=== PATIENT | female | born 1970 | race Caucasian/White ===

== ENCOUNTER 2019-08-04 08:38 | Outpatient (CLI) | payer BC, SELFPAY ==
--- NOTE | ~2019-08-04 | MM_ITS ---
EXAMINATION: MM screening megan BI w randa HISTORY: Screening mammogram TECHNIQUE: Craniocaudal and mediolateral oblique 3-D tomosynthesis images were obtained and synthetic 2-D images were generated. CAD analysis was submitted and interpreted. COMPARISON: 07/25/2018 bilateral digital screening mammogram 07/01/2016 right screening and left diagnostic digital mammogram examinations 03/29/2015 bilateral diagnostic digital mammogram BREAST PARENCHYMAL COMPOSITION: The breasts are heterogeneously dense, which may obscure small masses . FINDINGS: There is no evidence of suspicious mass, calcification, or architectural distortion to sugg est malignancy in either breast. There has been no suspicious interval change. IMPRESSION: 1. No mammographic evidence of malignancy. 2. Recommend routine screening mammography in one year. BI-RADS Category 1: Negative Reviewed, dictated and finalized at location A.
== END 2019-08-04 08:39 | disposition home or self-care (01) ==
LOC: ANHIMG 08:42
PROVIDERS: PCP Family Medicine; Visit Provider Obstetrics & Gynecology
DX: Z12.31 Encounter for screening mammogram for malignant neoplasm of breast (principal)
CPT/HCPCS: 77063; 77067

== ENCOUNTER 2020-02-10 10:25 | Outpatient (CLI) | payer BC, SELFPAY ==
--- NOTE | 2020-02-10 10:28 | ECG_ITS ---
Measurements Intervals [place] Rate: 77 P: 45 ID: [id number] QRS: 12 QRSD: 106 T: 35 QT: 367 QTc: 417 Interpretive Statements SINUS RHYTHM DELAYED PRECORDIAL R/S TRANSITION BASELINE ARTIFACT- I, II, III, AVR, AVL, AVF, V1-V2 BORDERLINE ECG Electronically Signed On 02-10-2020 11:47:48 CDT by Thomas Dorsey D.O.
== END 2020-02-10 10:26 | disposition home or self-care (01) ==
PROVIDERS: PCP Family Medicine; Visit Provider Orthopaedic Surgery
DX: I10 Essential (primary) hypertension (principal); Z01.818 Encounter for other preprocedural examination; R94.31 Abnormal electrocardiogram [ECG] [EKG]
CPT/HCPCS: 93005

== ENCOUNTER 2020-02-13 02:59 | Outpatient (CLI) | payer BC, SELFPAY ==
[2020-02-13 18:02] LABS: SARS-CoV-2 RNA PCR Negative
== END 2020-02-13 03:00 | disposition home or self-care (01) ==
LOC: ANHCOVIDDT 03:00
PROVIDERS: PCP Family Medicine; Visit Provider Orthopaedic Surgery
DX: Z01.812 Encounter for preprocedural laboratory examination (principal); Z20.828 Contact with and (suspected) exposure to other viral communicable diseases
CPT/HCPCS: 87635; C9803; U0003

== ENCOUNTER 2020-02-16 02:11 | Day surgery (SDC) | payer BC, SELFPAY ==
[2020-02-05 15:23] VITALS: BMI 28.0
--- NOTE | 2020-02-13 15:37 | WPDANESEPPF ---
Anes - Initial Pre Proc Eval Procedure: Operation Date: 02/16/20 12:00 Proposed Procedures p Right Knee Diagnostic Arthroscopy, Possible Meniscal Repair, Proceed As Indicated - Salvador Serrato MD Date/Time: 02/13/20 15:37 Surgeon: Salvador Serrato MD Pre Op Diagnosis: right knee pain Patient Data Age: 49 Gender: F Height: 1.64 m Weight: 75.3 kg Allergies Allergy/AdvReac Type Severity Reaction Status Date / Time No Known Allergies Allergy Unknown Verified 02/16/20 10:03 Home Medications Medication Instructions Recorded Confirmed Type umeclidinium 62.5 mcg/actuation 1 inhalation INHALATION DAILY 03/18/19 02/16/20 History blister powder for inhalation fluticasone furoate 200 1 inhalation INHALATION QPM 04/17/19 02/16/20 History mcg-vilanterol 25 mcg/dose inhalation powder fluticasone propionate 50 1 spray NASAL DAILY #9.9 ml 11/12/19 02/16/20 Rx mcg/actuation nasal spray,suspension naproxen 500 mg tablet 500 mg PO BID #60 tablet 12/25/19 02/16/20 Rx atorvastatin 10 mg tablet 10 mg PO DAILY #90 tablet 01/05/20 02/16/20 Rx metoprolol succinate 25 mg 25 mg PO DAILY #90 tablet 01/05/20 02/16/20 Rx tablet,extended release 24 hr montelukast 10 mg tablet 10 mg PO DAILY #90 tablet 01/05/20 02/16/20 Rx lisinopril 5 mg tablet 5 mg PO DAILY #90 tablet 01/08/20 02/16/20 Rx calcium carbonate [Calcium 600] 600 mg PO DAILY 02/05/20 02/16/20 History cholecalciferol (vitamin D3) 50 mcg PO DAILY 02/05/20 02/16/20 History [Vitamin D3] omeprazole 40 mg PO DAILY PRN 02/05/20 02/16/20 History Patient hx anesthesia problems: none Family hx anesthesia problems: none PMFSH Past Medical History Medical History (Updated 02/13/20 @ 15:40 by Beny Shankar MD) Anemia Asthma exacerbation BMI 29.0-29.9,adult Chronic GERD Essential (primary) hypertension Hypertension Mild persistent asthma, uncomplicated Pure hypercholesterolemia, unspecified Surgical History Surgical History H/O: hysterectomy History of tonsillectomy Family History Family History Father Hypertension Family history of elevated blood lipids Social History Social History Smoking status: Never smoker Alcohol intake: current Drinks per week: 4 Gender identity (if verbalized by the patient): Female Spiritual care concerns: No Anes - Eval Final PreProcedure Day of Procedure 02/13/20 15:37 Patient weight: overweight Heart: regular rate and rhythm Lungs: clear to auscultation and normal air movement Airway: Mallampati scale class II Neurological: alert and oriented Last oral intake: >/= 8 hours ASA classification: II Emergent: no Anesthetic plan: proceed Anesthesia type and monitoring: general LMA Informed Consent: The patient's anesthetic plan and its attendant risks and benefits were discussed with the patient/family/POA. Questions were solicited and answers provided to the satisfaction of the patient/family/POA.
[2020-02-16] VITALS (7 sets, daily range): BP systolic 134–159; BP diastolic 73–92; PULSE 68–84; RESP 13–18; TEMP 36.4–36.7; O2SAT 99–100
[2020-02-16] MEDS: LACTATED RINGERS 1,000 ML 30 ML IV CONT ×2 (10:33→12:34)
[2020-02-16] MEDS: ACETAMINOPHEN 500 MG TABLET 1000 MG PO (10:35)
[2020-02-16] MEDS: KETOROLAC 15 MG/ML VIAL (*BKC) IV PUSH (10:35)
--- NOTE | 2020-02-16 11:02 | WPDHPUPDATE1 ---
History and Physical Update Update Date/Time: 02/16/20 11:02 History and Physical has been reviewed, including an updated exam of the patient. There are NO changes in the patient's condition. Risks, benefits, and alternatives have been discussed and questions answered. Patient agrees to proceed with procedure.
[2020-02-16] MEDS: ceFAZolin 2 GM/D5W 50 ML 2 GM/50 ML BAG IVPB (11:16)
--- NOTE | 2020-02-16 12:34 | PM.PROC ---
Procedure Note - Detailed Date of procedure: 02/16/20 Pre-op diagnosis: right knee pain Post-op diagnosis: same Procedure performed: Right knee arthroscopy partial synovectomy Description of procedure: The patient was identified and proper site identified. she was taken to the operating room and transferred to the OR table placing her supine taking care to pad the torso and extremities. After general anesthetic induction and intubation, a nonsterile tourniquet was placed high on the right thigh but was not inflated. The right lower extremity was positioned, prepped and draped in usual sterile fashion. 10 cc of 1% lidocaine was injected into the subcutaneous tissue in the area of the portals at start of the procedure, and an additional 10 at the end. The portals were established and the arthroscopy was carried out. hip articular cartilage in the anterior compartment showed fraying at the medial facet of the patella. Femoral trochlea was in pretty good shape. Lateral articular and meniscal cartilage was in good shape. There was a fissure in the medial femoral condyle at the weight-bearing portion but the cartilage was stable. Medial meniscus was stable. Anterior and posterior cruciate ligaments were in continuity. Pouch and gutters were clear. There was a very large fold of fat pad and synovium overlying the anterior horn of the medial meniscus which was atrophic and white consistent with chronic anterior impingement. This was debrided with the shaver and then ArthroCare Wand was used for hemostasis. The knee was flushed with a copious amount of arthroscopic fluid and equipment was removed. Portals were closed with three O nylon suture and a sterile dressing was applied. She tolerated the procedure well, was awakened, extubated and taken to recovery area in stable condition. There were no known intraoperative complications. Estimated blood loss was negligible. she received perioperative antibiotics. Anesthesia: GLMA Surgeon: Salvador Serrato MD Estimated blood loss (mL): 20 Drains: No Packing: No Pathology: none sent Complications: No immediate complications Condition: stable Disposition: PACU
--- NOTE | 2020-02-16 14:09 | SUR.PHASEII ---
DR. JOSEPH'S OFFICE CALLED RE: EXERCISES; OFFICE WILL CALL PT TOMORROW.
== END 2020-02-16 14:24 | disposition home or self-care (01) ==
PROVIDERS: PCP Family Medicine; Visit Provider Orthopaedic Surgery
PROC: (CPT 29870; principal; 2020-02-16 12:00)
DX: M65.861 Other synovitis and tenosynovitis, right lower leg (principal); M25.561 Pain in right knee; I10 Essential (primary) hypertension; D64.9 Anemia, unspecified; K21.9 Gastro-esophageal reflux disease without esophagitis; E78.00 Pure hypercholesterolemia, unspecified; J45.30 Mild persistent asthma, uncomplicated
CPT/HCPCS: 29875; A9270; J0690; J1100; J1885; J1940; J2250; J2405; J2704; J3010; J7120

== ENCOUNTER 2020-03-16 08:00 | Outpatient (RCR) | payer BC, SELFPAY ==
--- NOTE | 2020-02-26 10:06 | PTOPEVAL ---
INITIAL PHYSICAL THERAPY EVALUATION and PLAN OF CARE Thank you for referring Silvana Tineo to [facility].? Silvana is scheduled to be seen for physical therapy? 2x/week for 4 weeks. Please review, sign, date and return this plan of care JUNIOR. I agree with and certify that the following plan of care is medically necessary. Referring Physician Date Admitting Provider: Attending Provider: Salvador Serrato MD Referring Provider: *PT Outpatient Evaluation Start: 02/26/20 08:36 Freq: Status: Active Protocol: Document 02/26/20 08:30 JUANITA (Rec: 02/26/20 09:53 JUANITA [id number]) Therapy Assessment Status Assessment Status Assessment Status Evaluation Outpatient Past Medical History Past Medical History Source of Past Medical History Recalled from Previous Visit, Confirmed with Patient/Family Neurological History Hx Neurological Disorders No Significant History Cardiovascular History Hx Hypercholesterolemia Yes Hx Hypertension Yes Respiratory History Hx Asthma Yes Hx Pneumonia Yes: x2 2018 Gastrointestinal History Hx Gastroesophageal Reflux Disease Yes Genitourinary History Hx Genitourinary Disorders No Significant History Musculoskeletal History Hx Fractures Yes: FX FINGER L 5th Hx Orthopedic Surgery Yes: R knee arthroscopy 2019 Hx Other Musculoskeletal Disorders Yes: rt knee pain Hematological History Hx Hematological Disorders No Significant History Endocrine History Hx Endocrine Disorders No Significant History HEENT History Hx Tonsillectomy Yes Integumentary History Hx Skin Disorders No Significant History Reproductive History Hx Endometriosis Yes Hx Fibroids Yes Hx Hysterectomy Yes: October 2015 Psychosocial History Hx Psychiatric Disorders No Significant History Pain History History of Any Previous or Ongoing No Significant History Instance of Pain Anesthesia History Hx Anesthesia Reactions No Significant History Evaluation Information Problem Diagnosis R knee arthroscopy Onset 02/16/2020 Subjective Information Thanksgiving 2018 - twisting Query Text:As Reported By Patient/ injury to knee, stair climbing Family anterior pinching sensation - did have PT July 2019 Did received cortisone injection - felt better. Was seeing another Ortho MD. Went back to PCP - referred her to Dr Serrato - decided on diagnostic arthroscop
--- NOTE | 2020-03-16 09:00 | PTOPEVAL ---
PHYSICAL THERAPY DISCHARGE SUMMARY Thank you for referring Silvana Tineo to [facility].? Bety has completed 4 PT treatments and has met goals set. She is ready for d/c from PT to HEP. I agree with Bety's discharge from PT. Referring Physician Date Admitting Provider: Attending Provider: Salvador Serrato MD Referring Provider: *PT Outpatient Evaluation Start: 02/26/20 08:36 Freq: Status: Active Protocol: Document 03/16/20 08:10 JUANITA (Rec: 03/16/20 09:00 JUANITA [id number]) Therapy Assessment Status Assessment Status Assessment Status Discharge Evaluation Information Problem Subjective Information Bety states that her R knee is Query Text:As Reported By Patient/ feeling good - doesn't think Family that she needs any further PT. She has returned to walking the dog and taking walks with her . Bety still notices some occasional discomfort and swelling of R knee - but uses ice and does HEP. Pain Assessment Timing of Pain Assessment Timing of Pain Assessment Assessment Pain Scale Pain Scale Used Numeric (1 - 10) Self Report Pain Assessment Right Knee(s) Reported Pain Level 2 Lowest Pain Intensity 0 Greatest Pain Intensity 5 Pain Score Pain Score 2: Self Report Interventions Used Interventions Used By Clinicians Exercise,Ice Lower Extremity Range of Motion Knee Range of Motion Right Knee Flexion Range of Motion - Active 140 Knee Extension Range of Motion - Active 0 Query Text: Lower Extremity Muscle Strength Testing Hip Strength Bilateral Hip Strength Comments R hip - flexion, extension, ER , IR 5/5 abduction 4+/5 Extremity Circumference Assessment Circumference Assessment Location Right Body Part Knee Site Descriptor ([place]) mid patellar Circumference Comments R mid patellar 41.5 cm Gait Assessment Gait Pattern Assessment Other Gait Observations without gait deviation - symmetrical stance/swing phases, equal step length, symmetrical heel/toe progression. Stair Climbing Assessment Stair Climbing Assessment Stair Climbing Assistive Devices None Weight Bearing Status - Left Full Weight Bearing Status - Right Full Number of Steps Climbed (Steps) 4 Number of Repetitions (Repetitions) 1 Technique Alternating Steps Stair Climbing Direction Both Up and Down Stair Climbing
== END 2020-03-16 14:59 | disposition home or self-care (01) ==
LOC: ANHPT 08:00
PROVIDERS: PCP Family Medicine; Visit Provider Orthopaedic Surgery
DX: Z48.89 Encounter for other specified surgical aftercare (principal)
CPT/HCPCS: 97110; 97161

== ENCOUNTER 2020-08-19 10:53 | Outpatient (CLI) | payer BC, SELFPAY ==
--- NOTE | ~2020-08-19 | MM_ITS ---
EXAMINATION: MM screening megan BI w randa HISTORY: Screening TECHNIQUE: Craniocaudal and mediolateral oblique 3-D tomosynthesis images were obtained and synthetic 2-D images were generated. CAD analysis was submitted and interpreted. COMPARISON: Comparison to multiple prior studies sequentially, with oldest reviewed study dated 07/2014. BREAST PARENCHYMAL COMPOSITION: The breasts are heterogenously dense, which may obscure small masses. FINDINGS: There is a focal asymmetry in the subareolar location of the left breast, middle third on e xaggerated cc view only. The right breast is stable without evidence for malignancy. IMPRESSION: 1. Focal left breast asymmetry. 2. Additional mammographic views and possible breast ultrasound are recommended. BI-RADS Category 0: Incomplete: Needs additional imaging evaluation. Reviewed, dictated and finalized at location A. IMPRESSION: 1. Focal left breast asymmetry. 2. Additional mammographic views and possible breast ultrasound are recommended . BI-RADS Category 0: Incomplete: Needs additional imaging evaluation.
== END 2020-08-19 10:54 | disposition home or self-care (01) ==
PROVIDERS: PCP Family Medicine; Visit Provider Family Medicine
DX: Z12.31 Encounter for screening mammogram for malignant neoplasm of breast (principal); R92.8 Other abnormal and inconclusive findings on diagnostic imaging of breast
CPT/HCPCS: 77063; 77067

== ENCOUNTER 2020-09-14 11:54 | Outpatient (CLI) | payer BC, SELFPAY ==
--- NOTE | ~2020-09-14 | MMUS_ITS ---
EXAMINATION: MM diagnostic mammo unilat LT, US breast LT complete HISTORY: Follow-up left breast asymmetry TECHNIQUE: Additional 3-D tomosynthesis images of the left breast were performed and synthetic 2-D im ages were generated. CAD analysis was submitted and interpreted. High resolution complete left breast ultrasound was performed. COMPARISON: Comparison to multiple prior studies sequentially, with oldest reviewed study dated 03/16. BREAST PARENCHYMAL COMPOSITION: The breasts are heterogenously dense, which may obscure small masses. FINDINGS: MAMMOGRAPHIC FINDINGS: There are no suspicious masses, calcifications or architectural distortion in the left breast to sugg est malignancy. ULTRASOUND: Complete left breast ultrasound: Normal heterogeneous echotexture without focal solid or cystic mass. IMPRESSION: 1. No evidence for malignancy in the left breast. 2. Routine yearly screening mammogram and regular clinical breast examination are recommended. BI-RADS Category 1: Negative Reviewed, dictated and finalized at location A. IMPRESSION: 1. No evidence for malignancy in the left breast. 2. Routine yearly screening mammogram and regular clinical breast examination a re recommended. BI-RADS Category 1: Negative
== END 2020-09-14 11:55 | disposition home or self-care (01) ==
LOC: ANHIMG 11:55
PROVIDERS: PCP Family Medicine; Visit Provider Family Medicine
DX: R92.8 Other abnormal and inconclusive findings on diagnostic imaging of breast (principal)
CPT/HCPCS: 76641; 77061; 77065; G0279

== ENCOUNTER 2021-04-07 08:02 | Outpatient (CLI) | payer BC, SELFPAY ==
--- NOTE | 2021-04-07 16:46 | WPDPFTINT ---
PFT Procedure Performed PFT Procedure Performed Spirometry with Pre/Post Bronchodilator Plethysmography (Lung Vol) Diffusing Cap (DLCO) Flow Vol Loop PFT Interpretation This is a pulmonary function test with pre and post-bronchodilator spirometry, plethysmography and diffusing capacity. The test was performed and results interpreted in accordance with the 2019 and 2005 ATS/ERS Task Force guidelines respectively using the Global Lung Function Initiative-2012 reference equations. Patient demonstrated good effort and cooperation. Reproducibility criteria were met. The quality of the pre bronchodilator spirometry maneuver was Grade A and post bronchodilator spirometry maneuver was Grade A. Findings: Spirometry: The contour the inspiratory and expiratory flow tracing are normal. The pre bronchodilator FVC is 2.82 L, 81% predicted. The pre bronchodilator FEV1 is 2.44 L, 88% predicted. The FEV1: FVC ratio is 87%. The post bronchodilator FVC is 2.91 L, representing a 3% increase. The post bronchodilator FEV1 is 2.54 L, representing a 4% increase. The post bronchodilator FEV1: FVC ratio was 87%. Plethysmography: The total lung capacity is 4.22 L, 83% predicted. The functional residual capacity is 2.15 L, 76% predicted. The residual volume is 1.18 L, 66% predicted. Diffusing capacity: The absolute diffusion capacity is 15.5, 68% predicted. The diffusing capacity corrected for alveolar volume is 4.54, 99% predicted. In comparison to previous pulmonary function tests on 12/23/2018 the post bronchodilator FVC is unchanged from 3.04 L to 2.91 L. The post bronchodilator FEV1 is unchanged from 2.41 L to 2.54 L. The total lung capacity is unchanged from 4.07 L to 4.22 L. The functional residual capacity is unchanged from 1.96 L to 2.15 L. The residual volume is unchanged from 1.04 L to 1.18 L. The absolute diffusion capacity is unchanged from 17.8 to 15.5. The diffusing capacity corrected for alveolar volume has decreased from 5.85 to 4.54 Impression: The spirometry is normal without evidence of an obstructive abnormality. There is no significant improvement after inhaling a single dose of albuterol. The lung volumes are normal. The absolute diffusion capacity is mildly decreased and normalizes when corrected for alveolar volume. When compared to the prior pulmonary function test on 12/23/2018 there has been a greater than anticipated time dependent decrease in the diffusing capacity corrected for alveolar volume with no significant change in the FVC, FEV1, total lung capacity, functional residual capacity, residual volume or absolute diffusing capacity. Clinical correlation is recommended.
== END 2021-04-07 08:03 | disposition home or self-care (01) ==
PROVIDERS: PCP Family Medicine; Visit Provider Allergy & Immunology
DX: J45.51 Severe persistent asthma with (acute) exacerbation (principal); R94.2 Abnormal results of pulmonary function studies
CPT/HCPCS: 94060; 94726; 94729

== ENCOUNTER 2021-05-02 00:25 | Day surgery (SDC) | payer BC, SELFPAY ==
[2021-04-14 14:09] VITALS: BMI 28.8
[2021-05-02 10:16] VITALS: BP 136/82; PULSE 105; RESP 16; TEMP 36.6; O2SAT 99; BMI 28.5
--- NOTE | 2021-05-02 10:16 | WPDANESEPPF ---
Anes - Initial Pre Proc Eval Procedure: Operation Date: 05/02/21 11:30 Proposed Procedures p Screening Colonoscopy - Espinoza Singleton MD Date/Time: 05/02/21 10:16 Surgeon: Espinoza Singleton MD Pre Op Diagnosis: neoplasm screening Patient Data Age: 51 Gender: F Height: 1.63 m Weight: 76 kg Allergies Allergy/AdvReac Type Severity Reaction Status Date / Time No Known Allergies Allergy Unknown Verified 05/02/21 10:15 Home Medications Medication Instructions Recorded Confirmed Type calcium carbonate [Calcium 600] 600 mg PO DAILY 02/05/20 05/02/21 History cholecalciferol (vitamin D3) 50 mcg PO DAILY 02/05/20 05/02/21 History [Vitamin D3] fluticasone propionate 50 1 spray NASAL DAILY #9.9 ml 05/11/20 05/02/21 Rx mcg/actuation nasal spray,suspension fluticasone fur. 100 mcg-umeclid 1 inh INHALATION DAILY 06/24/20 05/02/21 History 62.5 mcg-vilant 25 mcg inhalat.powder montelukast 10 mg tablet 10 mg PO DAILY #90 tablet 02/07/21 05/02/21 Rx naproxen 500 mg tablet 500 mg PO BID PRN #60 tablet 03/01/21 05/02/21 Rx atorvastatin 40 mg tablet 40 mg PO DAILY #90 tablet 03/31/21 05/02/21 Rx acetaminophen 650 mg PO Q6H PRN 04/14/21 05/02/21 History lisinopril 5 mg PO DAILY 04/14/21 05/02/21 History metoprolol succinate 25 mg PO DAILY 04/14/21 05/02/21 History Patient hx anesthesia problems: none Family hx anesthesia problems: none Results Review: All pre-operative results and documents have been reviewed as part of the pre-operative evaluation. COUNTS INCLUDE 234 BEDS AT THE [facility] Past Medical History Medical History Anemia Asthma exacerbation BMI 29.0-29.9,adult Chronic GERD Essential (primary) hypertension Hypertension Mild persistent asthma, uncomplicated Pure hypercholesterolemia, unspecified Surgical History Surgical History H/O: hysterectomy History of arthroscopy of right knee partial synovectomy/anterior impingement History of tonsillectomy Family History Family History Father Hypertension Family history of elevated blood lipids Social History Social History Smoking status: Never smoker Alcohol intake: current Drinks per week: 4 Alcohol use details: occasional Living arrangements: with family Gender identity (if verbalized by the patient): Female Spiritual care concerns: No Anes - Eval Final PreProcedure Day of Procedure 05/02/21 10:16 Patient weight: overweight Heart: regular rate and rhythm Lungs: clear to auscultation Airway: Mallampati scale class II Neurological: alert and oriented Last oral intake: >/= 8 hours ASA classification: II Emergent: no Anesthetic plan: proceed Anesthesia type and monitoring: general GIVS and standard monitoring Results Review: All pre-operative results and documents have been reviewed as part of the pre-operative evaluation. Informed Consent: The patient's anesthetic plan and its attendant risks and benefits were discussed with the patient/family/POA. Questions were solicited and answers provided to the satisfaction of the patient/family/POA.
[2021-05-02] MEDS: LACTATED RINGERS 1,000 ML 150 ML IV CONT (10:20)
--- NOTE | 2021-05-02 10:29 | PM.HPGS ---
History of Present Illness History of Present Illness Consent: Risks, benefits, and alternatives have been discussed and questions answered. Patient agrees to proceed with procedure. Chief complaint: neoplasm screening Narrative: Silvana Tineo is a 51 year old female here for first screening colonoscopy Review of Systems Constitutional: Constitutional: Denies headache(s) and Denies weakness Eyes: Eyes: Denies blurry vision ENT: Reports Normal hearing present, Denies headache(s) and Denies neck pain Cardiovascular: Cardiovascular: Denies chest pain and Denies dyspnea Respiratory: Respiratory: Denies dyspnea Gastrointestinal: Gastrointestinal: Reports no additional gastrointestinal complaints Genitourinary: Genitourinary: Denies dysuria Musculoskeletal: Musculoskeletal: Denies neck pain Integumentary/Breasts: Skin/Breast: Denies dry skin Neurologic: Reports Normal hearing present, Denies headache(s) and Denies weakness Psychiatric: Psychiatric: Denies anxiety Endocrine: Endocrine: Denies change in body appearance Hematologic/Lymphatic: Hematologic/Lymphatic: Denies easy bleeding Allergic/Immunologic: Allergic/Immunologic: Denies urticaria PMFSH Past Medical History Medical History Anemia Asthma exacerbation BMI 29.0-29.9,adult Chronic GERD Essential (primary) hypertension Hypertension Mild persistent asthma, uncomplicated Pure hypercholesterolemia, unspecified Surgical History Surgical History H/O: hysterectomy History of arthroscopy of right knee partial synovectomy/anterior impingement History of tonsillectomy Family History Family History Father Hypertension Family history of elevated blood lipids Social History Social History Smoking status: Never smoker Alcohol intake: current Drinks per week: 4 Alcohol use details: occasional Living arrangements: with family Gender identity (if verbalized by the patient): Female Spiritual care concerns: No Meds Home Medications and Allergies Home Medications Medication Instructions Recorded Confirmed Type calcium carbonate [Calcium 600] 600 mg PO DAILY 02/05/20 05/02/21 History cholecalciferol (vitamin D3) 50 mcg PO DAILY 02/05/20 05/02/21 History [Vitamin D3] fluticasone propionate 50 1 spray NASAL DAILY #9.9 ml 05/11/20 05/02/21 Rx mcg/actuation nasal spray,suspension fluticasone fur. 100 mcg-umeclid 1 inh INHALATION DAILY 06/24/20 05/02/21 History 62.5 mcg-vilant 25 mcg inhalat.powder montelukast 10 mg tablet 10 mg PO DAILY #90 tablet 02/07/21 05/02/21 Rx naproxen 500 mg tablet 500 mg PO BID PRN #60 tablet 03/01/21 05/02/21 Rx atorvastatin 40 mg tablet 40 mg PO DAILY #90 tablet 03/31/21 05/02/21 Rx acetaminophen 650 mg PO Q6H PRN 04/14/21 05/02/21 History lisinopril 5 mg PO DAILY 04/14/21 05/02/21 History metoprolol succinate 25 mg PO DAILY 04/14/21 05/02/21 History Allergies Allergy/AdvReac Type Severity Reaction Status Date / Time No Known Allergies Allergy Unknown Verified 05/02/21 10:15 Vital Signs Vital Signs - 24 hr 05/02/21 10:16 Temperature 98 F Pulse Rate 105 H Respiratory Rate 16 Blood Pressure 136/82 Pulse Oximetry 99 Exam Const: General: comfortable and no acute distress HENMT: General nose exam: Normal nares present Eyes: General: appearance normal, both eyes and all related structures Neck: Neck: no JVD Resp: Auscultation: clear to auscultation bilaterally Cardio: Rate: regular rate Rhythm: regular rhythm GI: Inspection: non-distended GI Palp: Yes Soft to palpation Skin: General skin exam: normal color Neuro: General: gait normal Speech: normal speech Extrem: General: normal to inspection Psych: Mental Status: mental status grossl
[2021-05-02 10:47] VITALS: BP 98/56; PULSE 91; RESP 22; O2SAT 95
[2021-05-02 10:57] VITALS: BP 92/50; PULSE 72; RESP 22; O2SAT 100
[2021-05-02 11:07] VITALS: BP 115/71; PULSE 77; RESP 22; O2SAT 100
== END 2021-05-02 11:16 | disposition home or self-care (01) ==
PROVIDERS: PCP Family Medicine; Visit Provider Internal Medicine Gastroenterology
PROC: 0DJD8ZZ Inspection of Lower Intestinal Tract, Via Natural or Artificial Opening Endoscopic (ICD-10-PCS; CPT 45378; principal; 2021-05-02 11:30)
DX: Z12.11 Encounter for screening for malignant neoplasm of colon (principal); K63.5 Polyp of colon; K57.30 Diverticulosis of large intestine without perforation or abscess without bleeding; K64.8 Other hemorrhoids; K64.4 Residual hemorrhoidal skin tags; D64.9 Anemia, unspecified; J45.909 Unspecified asthma, uncomplicated; K21.9 Gastro-esophageal reflux disease without esophagitis; I10 Essential (primary) hypertension; J45.30 Mild persistent asthma, uncomplicated; E78.00 Pure hypercholesterolemia, unspecified
CPT/HCPCS: 45385; 88305; J2001; J2704; J7120

== ENCOUNTER 2021-06-16 08:42 | Outpatient (CLI) | payer BC, SELFPAY ==
--- NOTE | ~2021-06-16 | US_ITS ---
EXAMINATION: US venous doppler LE RT DATE: 06/16/2021 09:07 INDICATION: Right lower limb pain. TECHNIQUE: Grayscale ultrasound images without and with compression and Doppler ultrasound images of the right lower extremity veins were obtained. COMPARISON: None. FINDINGS: The visualized portions of right common femoral vein, profunda (deep) femoral vein, femoral vein, pop liteal vein, peroneal veins, posterior tibial veins, and greater saphenous vein outflow are patent. IMPRESSION: 1. No deep venous thrombosis. Reviewed, dictated and finalized at location A. [facility]
[2021-06-16 09:20] LABS: Basophils Absolute Auto 0.1 K/mm3 (0.0-0.1); Basophils Percent Auto 0.7 % (0.2-1.2); Eosinophils Absolute Auto 0.1 K/mm3 (0-0.3); Eosinophils Percent Auto 1.1 % (0-4.4); Hematocrit 41.4 % (37.0-47.0); Hemoglobin 13.1 g/dL (12.0-15.0); Immature Granulocyte Absolute 0.03 K/mm3 (0.00-0.031); Immature Granulocyte Percent A 0.4 % (0-0.5); Lymphocytes Percent Auto 22.7 % (18.3-44.2); Mean Corpuscular HGB Conc 31.6 g/dl (32-36); Mean Corpuscular Hemoglobin 30.8 pg (26-34); Mean Corpuscular Volume 97.4 fl (80-100); Mean Platelet Volume 9.6 fl (7.4-10.4); Monocytes Absolute Auto 0.4 K/mm3 (0.1-0.6); Neutrophils Absolute Auto 4.9 K/mm3 (1.3-6.7); Neutrophils Percent Auto 70.1 % (45.5-73.1); Platelet Count Result 333 k/mm3 (150-375); Red Blood Count 4.25 M/mm3 (4.2-5.4); Red Cell Distribution Width 13.4 % (11.5-14.5); White Blood Count 7.1 K/mm3 (4.5-10.0)
[2021-06-16 09:42] LABS: CRP < 0.5 mg/dL (<1.0); Uric Acid 3.1 mg/dL (2.5-7.5)
[2021-06-16 09:44] LABS: Rheumatoid Factor < 8.6 IU/ML (<12)
[2021-06-16 10:41] LABS: Erythrocyte Sedimentation Rate 20 mm/hr (0-20)
== END 2021-06-16 08:43 | disposition home or self-care (01) ==
LOC: ANHIMG 08:46
PROVIDERS: PCP Family Medicine; Visit Provider Orthopaedic Surgery
DX: M17.0 Bilateral primary osteoarthritis of knee (principal); M79.661 Pain in right lower leg
CPT/HCPCS: 36415; 84550; 85025; 85652; 86038; 86140; 86430; 93971

== ENCOUNTER → 2021-08-01 09:46 | Outpatient (CLI) | payer BC, SELFPAY ==
--- NOTE | ~2021-08-01 | MR_ITS ---
EXAMINATION: MR knee RT wo con DATE: 08/01/2021 10:17 INDICATION: Right knee pain TECHNIQUE: Magnetic resonance imaging (MRI) of the right knee was performed without intravenous contr ast. Sequences included coronal PD-weighted FSE, coronal PD-weighted FS FSE, sagittal T2-weighted FS E, sagittal PD-weighted FS FSE and axial PD weighted fat saturated FSE. COMPARISON: None. FINDINGS: Medial compartment: Medial meniscus is normal. Full/near full-thickness chondral fissure extending along the anterior dahiana ghtbearing medial femoral condyle. Lateral compartment: Lateral meniscus is normal. Articular cartilage is normal. Patellofemoral compartment: Small region of deep chondral ulceration with likely full-thickness fissuring and underlying mild sub articular cystic change at the cephalad aspect of the patellar apical ridge and supralateral aspect o f the medial facet. Trochlear cartilage is normal. Ligaments and tendons: Anterior and posterior cruciate ligaments are normal. The medial collateral ligament and fibular dione ateral ligament complex are normal. The extensor mechanism is normal. The visualized medial and later al hamstring tendons as well as the iliotibial band are normal. Fluid: Physiologic amount of fluid in the joint space. No loose osteochondral bodies identified. Osseous/other: Normal marrow signal. No fracture or abnormal marrow replacing process. IMPRESSION: 1. Deep chondral fissuring at the patella and anterior weightbearing medial femoral condyle. Reviewed, dictated and finalized at location A. IMPRESSION: 1. Deep chondral fissuring at the patella and anterior weightbearing medial fem oral condyle.
== END ==
PROVIDERS: PCP Family Medicine; Visit Provider Orthopaedic Surgery
DX: M25.561 Pain in right knee (principal); G89.29 Other chronic pain; R93.7 Abnormal findings on diagnostic imaging of other parts of musculoskeletal system
CPT/HCPCS: 73721

== ENCOUNTER 2021-08-07 18:21 | Emergency (ER) | payer BC, SELFPAY ==
--- NOTE | ~2021-08-07 | XR_ITS ---
EXAMINATION: XR hand LT min 3V INDICATION: Left hand pain TECHNIQUE: Three views of the left hand are obtained. COMPARISON: 09/10/2014 FINDINGS: Bone alignment is normal. There is no fracture. The joint spaces are unremarkable. There is a mild soft soft tissue defect of the fourth finger. IMPRESSION: 1. No acute osseous abnormality. Reviewed, dictated and finalized at location F.
[2021-08-07 18:27] VITALS: BP 135/83; PULSE 84; RESP 16; TEMP 36.8; O2SAT 100
--- NOTE | 2021-08-07 18:53 | ED.GENADULT ---
HPI - General Adult General Chief complaint: Extremity Injury, Upper Stated complaint: FALL/L HAND INJURY Source: patient Mode of arrival: ambulatory Limitations: no limitations History of Present Illness HPI narrative: Patient presents for evaluation of pain in the bilateral hands and knees since last night. She indicates she was walking on the street when she tripped and landed with her hands outstretched. She landed on her knees. She did not hit her head nor have loss of consciousness. She reports abrasions to bilateral knees and left hand. She states that pain in bilateral knees and right hand is 2 out of 10 in severity, without descriptive quality. Pain in left hand is 4/10 in severity at rest but increases to 6/10 with movement. She has been taking tylenol arthritis and celebrex with some improvement in her symptoms. Her friend is a nurse and assisted her in washing to her abrasions. She also applied antibiotic ointment. She has arthritis in her knees and received a steroid injection on her right knee last per ortho. She is right hand dominant. She is not diabetic. Last tetanus was in 2011. No additional complaints or concerns. Related Data Home Medications Medication Instructions Recorded Confirmed calcium carbonate [Calcium 600] 600 mg PO DAILY 02/05/20 08/07/21 cholecalciferol (vitamin D3) 50 mcg PO DAILY 02/05/20 08/07/21 [Vitamin D3] fluticasone fur. 100 mcg-umeclid 1 inh INHALATION DAILY 06/24/20 08/07/21 62.5 mcg-vilant 25 mcg inhalat.powder acetaminophen 650 mg PO Q6H PRN 04/14/21 08/07/21 Allergies Allergy/AdvReac Type Severity Reaction Status Date / Time No Known Allergies Allergy Unknown Verified 08/07/21 18:26 Review of Systems Review of Systems: CONSTITUTIONAL: Denies fever, chills, or sweats. EYES: Denies visual changes, redness, or discharge. ENT: Denies rhinorrhea, congestion, sore throat, or otalgia. CARDIOVASCULAR: Denies chest pain, palpitations, or edema. RESPIRATORY: Denies cough or dyspnea. GASTROINTESTINAL: Denies abdominal pain, nausea, vomiting, or diarrhea. GENITOURINARY: Denies dysuria or hematuria. SKIN: Reports abrasions to bilateral knees and bilateral hands. Denies rash or itching. MUSCULOSKELETAL: Reports pain in bilateral hands and knees NEUROLOGIC: Denies headache, numbness, dizziness, or weakness. PSYCHIATRIC: Denies anxiety or depression. [facility] Past Medical History Medical History Anemia Asthma exacerbation BMI 29.0-29.9,adult Chronic GERD Essential (primary) hypertension Hypertension Mild persistent asthma, uncomplicated Pure hypercholesterolemia, unspecified Right knee pain Surgical History Surgical History H/O: hysterectomy History of arthroscopy of right knee partial synovectomy/anterior impingement February 2020 History of tonsillectomy Family History Family History Father Hypertension Family history of elevated blood lipids Social History Social History Alcohol intake: current Drinks per week: 4 Alcohol use details: occasional Gender identity (if verbalized by the patient): Female Spiritual care concerns: No Exam Narrative: GENERAL: Well-appearing, well-nourished, and in no acute distress. HEAD: Normocephalic, atraumatic. EYES: PERRLA and EOMI. ENT: Nares clear, no rhinorrhea or epistaxis. Mucous membranes moist. Oropharynx without tonsillar hypertrophy exudate or other lesions. Bilateral TMs pearly josé nonbulging NECK: Supple. No adenopathy or masses. No carotid bruits or JVD CHEST: Clear to auscultation. No respiratory distress. No wheezes rales or rhonchi HEART: Regular rate and rhythm. No murmur heard. Normal peripheral pulses. ABDOMEN: Soft, nontender, nondistended,
[2021-08-07] MEDS: TETANUS,DIPHTHERIA,AC PERTUSSIS ADULT (0.5 ML) BOOSTRIX IM (18:54)
== END 2021-08-07 19:14 | disposition home or self-care (01) ==
PROVIDERS: Emergency Provider Nurse Practitioner; PCP Family Medicine
DX: S60.222A Contusion of left hand, initial encounter (principal); S60.221A Contusion of right hand, initial encounter; S80.02XA Contusion of left knee, initial encounter; S80.01XA Contusion of right knee, initial encounter; Z23 Encounter for immunization; K21.9 Gastro-esophageal reflux disease without esophagitis; I10 Essential (primary) hypertension; J45.30 Mild persistent asthma, uncomplicated; E78.00 Pure hypercholesterolemia, unspecified; Z86.2 Personal history of diseases of the blood and blood-forming organs and certain disorders involving the immune mechanism; W01.0XXA Fall on same level from slipping, tripping and stumbling without subsequent striking against object, initial encounter
CPT/HCPCS: 73130; 90471; 90715; 99213; G0463

== ENCOUNTER 2021-11-04 07:58 | Outpatient (CLI) | payer BC, SELFPAY ==
--- NOTE | ~2021-11-04 | MM_ITS ---
EXAMINATION: MM screening megan BI w randa HISTORY: Screening TECHNIQUE: Craniocaudal and mediolateral oblique 3-D tomosynthesis images were obtained and synthetic 2-D images were generated. CAD analysis was submitted and interpreted. COMPARISON: Comparison to multiple prior studies sequentially, with oldest reviewed study dated 09/30. BREAST PARENCHYMAL COMPOSITION: The breasts are heterogeneously dense, which may obscure small masses . FINDINGS: There is no evidence of suspicious mass, calcification, or architectural distortion to sugg est malignancy in either breast. There has been no suspicious interval change. IMPRESSION: 1. No mammographic evidence of malignancy. 2. Recommend routine screening mammography in one year. BI-RADS Category 1: Negative Reviewed, dictated and finalized at location A.
== END 2021-11-04 07:59 | disposition home or self-care (01) ==
LOC: ANHIMG 08:01
PROVIDERS: PCP Family Medicine; Visit Provider Family Medicine
DX: Z12.31 Encounter for screening mammogram for malignant neoplasm of breast (principal)
CPT/HCPCS: 77063; 77067

== ENCOUNTER 2021-11-25 07:55 | Outpatient (CLI) | payer BC, SELFPAY ==
--- NOTE | 2021-11-25 08:11 | ECG_ITS ---
Measurements Intervals [place] Rate: 79 P: 44 WA: 158 QRS: 15 QRSD: 112 T: 38 QT: 382 QTc: 440 Interpretive Statements SINUS RHYTHM INCOMPLETE RIGHT BUNDLE BRANCH BLOCK [90+ ms QRS DURATION, TERMINAL R IN V1/V2, 40+ ms S IN I/aVL/V4/V5/V6] BORDERLINE ECG COMPARED TO ECG 02/10/2020 11:03:42 NO DIFFERENCE Electronically Signed On 11-25-2021 10:24:02 CDT by Akash Randall M.D.
== END 2021-11-25 07:56 | disposition home or self-care (01) ==
LOC: ANHSURGERY 08:04
PROVIDERS: PCP Family Medicine; Visit Provider Orthopaedic Surgery
DX: E78.00 Pure hypercholesterolemia, unspecified (principal); Z01.818 Encounter for other preprocedural examination; I45.10 Unspecified right bundle-branch block
CPT/HCPCS: 93005

== ENCOUNTER 2021-11-29 01:01 | Day surgery (SDC) | payer BC, SELFPAY ==
[2021-11-24 14:52] VITALS: BMI 29.5
--- NOTE | 2021-11-24 14:58 | PC.NURSE ---
Report to the Outpatient Waiting Room, entrance under the green pavilion located off [facility], at time _0900_ on date 11/29/21_. OR Time: __1100 . - You and your visitor will be asked to self-screen and do not enter if you have any COVID symptoms. - Only one visitor and NO children visitors are allowed at this time. - The patient visitor is requested to leave or wait in car when not with patient due to restrictions. - A mask is required within the hospital. Patients may have clear liquids (water, carbonated beverages, clear teas, apple juice) until 3 hours prior to surgery with a maximum of 20 ounces. - No food from midnight until time of surgery - Infants may have breast milk until 4 hours before surgery, infant formula 6 hours prior to surgery. - Children will be allowed to drink immediately following surgery. If applicable, please bring a bottle or sippy cup to assist with drinking. Juice, water, soda, and popsicles are readily available. For infants on formula, please bring formula the day of surgery. Pacifiers are allowed. Take the following medications with a SIP of water the morning of surgery: ____METOPROLOL, NASAL SPRAY, INHALER Medications to discontinue per physician VITAMINS Date to take last dose 11/26/21 Please no make-up, nail norwegian, hairspray, perfume, deodorant, or body powder the day of surgery. No jewelry (including any body piercings) or valuables the day of surgery, leave them at home. Please take a shower or bath the night before, or the morning of, surgery with an antibacterial soap. Wear comfortable, loose fitting clothing. Children are encouraged to wear pajamas. - Jewelry must be removed prior to entering the operating room. Rings and piercings that are not removed may be cut off. - The hospital will not accept responsibility for valuables. - Please leave all valuables, including medications, at home the day of surgery. If you are going home after surgery, a licensed shuttle van driver must drive you home. - NO public transportation without another adult. - We recommend that an adult stay with you for 24 hours following discharge. - We also recommend that you do not drive, make important decision, drink alcoholic beverages, or take any drugs that were not prescribed by your health care provider for at least 24 hours after your discharge time. For Pediatric surgeries, we recommend two adults accompany the child home (only one inside the building at this time). Follow any additional instructions given to you from your surgeon. If you or anyone in your household have experienced Covid symptoms in the past week, please notify your surgeon or the nurse liaison at the phone number below for possible testing. Telephone instructions given to _PATIENT___and asked if any additional questions and then verbalized understanding. Patient advised to call surgeon office or pre surgery nurse liaison [phone] if any additional questions.
--- NOTE | 2021-11-24 15:08 | SUR.PREOP ---
PT STATES SHE HAS CRUTCHES AND IS AWARE OF HOW TO USE THEM
[2021-11-29] VITALS (8 sets, daily range): BP systolic 122–149; BP diastolic 61–86; PULSE 60–87; RESP 12–16; TEMP 36.2–36.9; O2SAT 97–100
--- NOTE | 2021-11-29 07:13 | WPDANESEPPF ---
Anes - Initial Pre Proc Eval Procedure: Operation Date: 11/29/21 11:00 Proposed Procedures p Diagnostic Right Knee Arthroscopy, Proceed as Indicated - Salvador Serrato MD Date/Time: 11/29/21 07:13 Surgeon: Salvador Serrato MD Pre Op Diagnosis: Right Knee Pain Patient Data Age: 51 Gender: F Height: 1.63 m Weight: 78 kg Allergies Allergy/AdvReac Type Severity Reaction Status Date / Time No Known Allergies Allergy Unknown Verified 11/29/21 09:22 Home Medications Medication Instructions Recorded Confirmed Type calcium carbonate 600 mg calcium 600 mg PO DAILY 02/05/20 11/29/21 History (1,500 mg) tablet (Calcium) cholecalciferol (vitamin D3) 50 50 mcg PO DAILY 02/05/20 11/29/21 History mcg (2,000 unit) capsule (Vitamin D3) fluticasone fur. 100 mcg-umeclid 1 inh inhalation DAILY 06/24/20 11/29/21 History 62.5 mcg-vilant 25 mcg inhalat.powder (Trelegy Ellipta) acetaminophen 650 mg tablet 650 mg PO Q6H PRN Pain 04/14/21 11/29/21 History metoprolol succinate 25 mg See Rx Instructions .Route 06/02/21 11/29/21 Rx tablet,extended release 24 hr .COMPLEX #90 tabs lisinopril 5 mg tablet See Rx Instructions .Route 06/28/21 11/29/21 Rx .COMPLEX #90 tabs montelukast 10 mg tablet 10 mg PO DAILY #90 tabs 08/04/21 11/29/21 Rx (Singulair) fluticasone propionate 50 See Rx Instructions .Route 08/15/21 11/29/21 Rx mcg/actuation nasal .COMPLEX #16 grams spray,suspension atorvastatin 40 mg tablet 40 mg PO DAILY #90 tabs 09/21/21 11/29/21 Rx Patient hx anesthesia problems: none Family hx anesthesia problems: none Results Review: All pre-operative results and documents have been reviewed as part of the pre-operative evaluation. [facility] Past Medical History Medical History (Updated 11/10/21 @ 08:21 by Salvador Serrato MD) Anemia Asthma exacerbation BMI 29.0-29.9,adult Chronic GERD Essential (primary) hypertension History of COVID-04 June 2021 Hypertension Mild persistent asthma, uncomplicated Pure hypercholesterolemia, unspecified Right knee pain Surgical History Surgical History H/O: hysterectomy History of arthroscopy of right knee partial synovectomy/anterior impingement February 2020 History of tonsillectomy Family History Family History Father Hypertension Family history of elevated blood lipids Social History Social History (Updated 11/21/21 @ 15:[address] [facility]) Smoking status: Unknown if ever smoked Alcohol intake: current Drinks per week: 4 Alcohol use details: occasional Living arrangements: with family Gender identity (if verbalized by the patient): Female Spiritual care concerns: No Anes - Eval Final PreProcedure Day of Procedure 11/29/21 07:13 Patient weight: overweight Heart: regular rate and rhythm Lungs: clear to auscultation Airway: Mallampati scale class II Neurological: alert and oriented Last oral intake: >/= 8 hours ASA classification: II Emergent: no Anesthetic plan: proceed Anesthesia type and monitoring: general LMA and standard monitoring Results Review: All pre-operative results and documents have been reviewed as part of the pre-operative evaluation. Informed Consent: The patient's anesthetic plan and its attendant risks and benefits were discussed with the patient/family/POA. Questions were solicited and answers provided to the satisfaction of the patient/family/POA.
[2021-11-29] MEDS: ACETAMINOPHEN 500 MG TABLET 1000 MG PO (09:33)
[2021-11-29] MEDS: LACTATED RINGERS 1,000 ML 30 ML IV CONT ×2 (09:42→11:46)
[2021-11-29] MEDS: KETOROLAC 15 MG/ML VIAL (*BKC) IV PUSH (09:45)
--- NOTE | 2021-11-29 10:10 | WPDHPUPDATE1 ---
History and Physical Update Update Date/Time: 11/29/21 10:10 History and Physical has been reviewed, including an updated exam of the patient. There are NO changes in the patient's condition. Risks, benefits, and alternatives have been discussed and questions answered. Patient agrees to proceed with procedure.
[2021-11-29] MEDS: ceFAZolin 2 GM/D5W 50 ML 2 GM/50 ML BAG IVPB (10:36)
[2021-11-29] MEDS: LIDOCAINE HCL 1% PF INJ 5 ML VIAL 20 ML INFILTRATE (11:02)
[2021-11-29] MEDS: fentaNYL CITRATE INJ (*CRX) 100 MCG/2 ML VIAL 25 MCG IV PUSH ×2 (11:55→12:03)
--- NOTE | 2021-11-29 11:57 | W.PM.PROC2 ---
Procedure Note - Detailed Date of Procedure 11/29/21 Pre-op Diagnosis Right Knee Pain Post-op Diagnosis Same Procedure Performed Right knee arthroscopy with extensive synovectomy. Abrasion arthroplasty with microfracture medial femoral condyle. Surgeon Salvador Serrato MD Anesthesia General Description of Procedure The patient was identified and proper site identified and she was taken to the operating room, transferred to the OR table placing her supine taking care to pad the torso and extremities. After general anesthetic induction and intubation, a nonsterile tourniquet was placed high on the right thigh but was not inflated The right lower extremity was positioned, prepped and draped in usual sterile fashion. 10 cc of 1% lidocaine was injected into the subcutaneous tissue in the area of the portals at start of the procedure, and an additional 10 at the end. The portals were established and the arthroscopy was carried out. Lateral compartment articular meniscal cartilage was in excellent shape. Lateral gutter was clear. And and posterior cruciate ligaments were in continuity. Pouch was clear. Medially in the gutter there was tight striations of scar tissue that were rubbing over the medial femoral condyle. There is an it associated area of erythematous synovium and periosteum at the medial margin of the articular surface. There was an imbedded bone fragment in the scar tissue overlying and just anterior to the anterior horn of the medial meniscus. There is a large chondral fissure that had loose flaps noted the weight-bearing portion of medial femoral condyle. The scarred synovium was extensively debrided combination of shaver and ArthroCare Wand. Arthrocare Wand was used for hemostasis. The small bone fragment was removed the synovium in the scar tissue resected anteriorly as well. This gave much more mobility to the meniscus as the knee was taken range of motion. The fissuring of the medial femoral condyle was addressed with chondral debridement and then the exposed bone surface which measured approximately 1/2 x 1 centimeter was gently abraded with the shaver and then a May pick was used to create a single microfracture hole centrally and this. The knee was flushed with a copious amount of arthroscopic fluid and equipment was removed. Portals were closed with three O nylon suture and a sterile dressing was applied. She tolerated the procedure well, was awakened, extubated and taken to recovery area in stable condition. There were no known intraoperative complications. Estimated blood loss was negligible; she received perioperative antibiotics. Estimated Blood Loss -20.0 Tourniquet Time 0 Drains No Packing No Pathology None sent Complications No immediate complications Condition Stable Disposition PACU
[2021-11-29] MEDS: oxyCODONE HCL (*CRX) 5 MG TAB IR PO (12:38)
== END 2021-11-29 13:30 | disposition home or self-care (01) ==
PROVIDERS: PCP Family Medicine; Visit Provider Orthopaedic Surgery
PROC: (CPT 29870; principal; 2021-11-29 11:00)
DX: M65.861 Other synovitis and tenosynovitis, right lower leg (principal); M25.861 Other specified joint disorders, right knee; D64.9 Anemia, unspecified; J45.909 Unspecified asthma, uncomplicated; K21.9 Gastro-esophageal reflux disease without esophagitis; I10 Essential (primary) hypertension; Z86.16 Personal history of COVID-19; E78.00 Pure hypercholesterolemia, unspecified; G89.29 Other chronic pain
CPT/HCPCS: 29879; 93005; A9270; J0690; J1885; J2250; J2405; J2704; J3010; J7120

== ENCOUNTER 2022-02-23 08:00 | Outpatient (RCR) | payer BC, SELFPAY ==
--- NOTE | 2021-12-01 15:08 | PTOPEVAL ---
PHYSICAL THERAPY INITIAL EVALUATION. Thank you for referring Silvana Tineo to [facility].? The patient is scheduled to be seen for therapy? 1x/week for 4 weeks. Please review, sign, date and return this plan of care JUNIOR. I agree with and certify that the following plan of care is medically necessary. Referring Physician Date Attending Provider: Salvador Serrato MD *PT Outpatient Evaluation Start: 12/01/21 Evaluation Information Diagnosis R knee scope Onset 11/29/21 Subjective Information Pt states she had a knee scope Query Text:As Reported By Patient/ done on 11/29/21. She states Family her pain is well controlled. She ambulates into the clinic today with bradley axillary crutches. Pain Assessment Right Knee(s) Reported Pain Level 0 Pain Description Aching,Sharp,Spasms Pain Frequency Acute,Intermittent Lowest Pain Intensity 0 Greatest Pain Intensity 6 Lower Extremity Range of Motion Knee Range of Motion Right Knee Flexion Range of Motion - Active 95 Knee Extension Range of Motion - Active -8 Knee Range of Motion Comments L knee active ROM 0-134 Lower Extremity Muscle Strength Testing Gross Lower Extremity Strength R knee lacking 25 deg from terminal knee extension in short sitting Palpation Assessment Palpation incisions are clean, dry, and covered with bandages Gait Assessment Ambulation Assistive Devices Crutches Gait Pattern Antalgic Gait Other Gait Observations pt ambulates with bradley axillary crutches. Gait training with single axillary crutch held in LUE to improve mobility around home. Pt educated that if she has any discomfort with single crutch ambulation to return to bradley crutch ambulation Stair Climbing Assessment Stair Climbing Assistive Devices Crutches,Railings Technique Side Step Stair Climbing Direction Both Up and Down Stair Climbing Comments Step to pattern ascending with LLE leading and descending with RLE leading Safety Assessment Factors Affecting Safety Surgical Interventions,Weight Bearing Restrictions PT Clinical Summary Silvana Albert is an active 51 y /o female who presents to therapy today s/p knee scope
--- NOTE | 2021-12-08 08:40 | PCPTNOTE ---
Patient called & cancelled scheduled appointment this date due to being sick with a fever.
--- NOTE | 2022-01-17 16:14 | PTOPPROG ---
Assessment and note entered by Trevor Newell, PT, DPT Evaluation Information Assessment Status Progress Diagnosis R knee scope Subjective Information Pt was supposed to have a follow up with her orthopedic doctor today to review her protocol and her weight bearing status but this appointment needed to be rescheduled. She states her pain is well controlled and she has been compliant with her restrictions. Assessment PT Clinical Summary Silvana presents to therapy today for her progress report after participation in a home exercise program. Today she continues to ambulate with bradley axillary crutches. She has improved her R knee ROM to 136 deg, she is still lacking 5 deg of terminal knee extension. She has a good and strong quad set but is still lacking ~20 deg of terminal knee extension in short sitting. Continuation of skilled physical therapy services is indicated once weight bearing restrictions have been lifted. Plan of Care Interventions Electrical Stimulation,Gait Training,Hot Pack/Cold Pack,Manual Therapy,Neuro Re-education,Patient/ Caregiver Educati,Therapeutic Activities, Therapeutic Exercise PT Services Indicated Yes Treatment Frequency and 2x/wk for 6 wks, in 2 wks after ortho follow up Duration These treatments will address the objective and functional deficits as defined above. The patient will be advanced safely and appropriately in order for the patient to progress towards his/her prior level of function. Additional exercises will be introduced and as well as a comprehensive home exercise program upon discharge, if needed, ?to ensure carryover of functional gains achieved in the clinic. This treatment plan has been reviewed and agreement upon by the patient.
--- NOTE | 2022-02-24 17:35 | BUPTOPEVAL1 ---
Assessment and note entered by Rox Silva, PT Evaluation Information Assessment Status Progress Diagnosis R knee scope Subjective Information Reports she is walking 3/4 a mile a day with her dogs, has some mild increased pain with this but not much. Reported Pain Level Pain Score 3: Self Report Additional Pain Score Comments Takes Tylenol arthritis daily, sometimes 2-3x daily depending on her activity level Is icing as needed. Assessment PT Clinical Summary Pt has made significant improvements in her range, functional strength and gait since initiation of therapy. She cont to have pain especially with walking her dog and on unlevel surfaces. Palpation shows significant diffuse adhesions to the soft tissue surrounding the knee especially in the posterior knee and thigh. Today patient was educated on findings, and treatment related to chronic inflammatory presentation. Initiated [place] IASTM and deep tissue work to break up adhesions and improve tissue extensibility and thus aid in improving muscle activation patterns and reduce pain. Pt will benefit from continued therapy in order to focus on this aspect of recovery and improve her fucntion without pain Plan of Care Interventions Electrical Stimulation,Gait Training,Hot Pack/Cold Pack,Manual Therapy,Neuro Re-education, Therapeutic Activities,Therapeutic Exercise PT Services Indicated Yes Treatment Frequency and 1x/wk for 6 wks Duration These treatments will address the objective and functional deficits as defined above. The patient will be advanced safely and appropriately in order for the patient to progress towards his/her prior level of function. Additional exercises will be introduced and as well as a comprehensive home exercise program upon discharge, if needed, ?to ensure carryover of functional gains achieved in the clinic. This treatment plan has been reviewed and agreement upon by the patient.
== END 2022-03-01 23:59 | disposition home or self-care (01) ==
LOC: ANHPT 08:00
PROVIDERS: PCP Family Medicine; Visit Provider Orthopaedic Surgery
DX: Z48.89 Encounter for other specified surgical aftercare (principal); Z98.890 Other specified postprocedural states
CPT/HCPCS: 97014; 97035; 97110; 97112; 97140; 97161; 97530; G0283

== ENCOUNTER 2022-03-12 08:10 | Emergency (ER) | payer BC, SELFPAY ==
--- NOTE | 2022-03-12 08:16 | ED.FEMALEGU ---
HPI - Female Genitourinary General Chief complaint: Urogenital-Female Stated complaint: possible UTI Time Seen by Provider: 03/12/22 08:11 Source: patient Mode of arrival: ambulatory Limitations: no limitations History of Present Illness HPI Narrative: Silvana is a 52-year-old female patient presenting to the clinic today with complaints of possible urinary tract infection x1 day. She reports she started symptoms yesterday with burning/urgency/frequency/low urine output. No fever or chills. Does have some bladder spasms. She states she has never had a urinary tract infection before. Related Data Home Medications Medication Instructions Recorded Confirmed fluticasone fur. 100 mcg-umeclid 1 inh inhalation DAILY 06/24/20 03/12/22 62.5 mcg-vilant 25 mcg inhalat.powder (Trelegy Ellipta) acetaminophen 650 mg 650 mg PO Q12H 12/14/21 03/12/22 tablet,extended release (Tylenol Arthritis Pain) Allergies Allergy/AdvReac Type Severity Reaction Status Date / Time No Known Allergies Allergy Unknown Verified 03/08/22 08:06 Review of Systems Review of Systems: Pertinent positives per HPI. Patient denies any fever, chills, rash, headache, visual changes, dizziness, cough, runny nose, sore throat, shortness of breath, chest pain, palpitations, nausea, vomiting, diarrhea, constipation, abdominal pain. [facility] Past Medical History Medical History Anemia Asthma exacerbation BMI 29.0-29.9,adult Chronic GERD Essential (primary) hypertension History of COVID-04 June 2021 Hypertension Mild persistent asthma, uncomplicated Pure hypercholesterolemia, unspecified Right knee pain Surgical History Surgical History H/O: hysterectomy History of arthroscopy of right knee 1.partial synovectomy/anterior impingement February 2020 2. Right knee arthroscopy with extensive synovectomy, medial femoral condyle abrasion arthroplasty November 29, 2021 History of tonsillectomy Family History Family History Father Hypertension Family history of elevated blood lipids Social History Social History (Reviewed 11/27/22 @ 08:19 by LORRAINE Tim Smoking status: Unknown if ever smoked Alcohol intake: current Drinks per week: 4 Alcohol use details: occasional Gender identity (if verbalized by the patient): Female Spiritual care concerns: No Comments At the time of my signature, I reviewed and agree with the nursing past medical, surgical, social, and family history. There is no relevant family history pertinent to the patient complaint. Exam Narrative: General: Well-developed, well nourished, in no apparent distress. Head: Normocephalic, atraumatic. Cardio: Regular rate and rhythm, s1 and s2 normal, no murmur appreciated. Resp: Clear to auscultation bilaterally, no rhonchi, rales, wheezing or rubs. Abdomen: Soft, pliable, bowel sounds present in all quadrants, mild tender to palpation over the bladder, no organomegly, no CVAT tenderness. Course Course Emergency Course: Portions of this record may have been created with voice recognition software. Level of Care: Express Care Visit Vital Signs Vital signs: Vital signs reviewed MDM - Female Genitourinary MDM Narrative Medical decision making narrative: At the time of the patient is resting comfortably on the exam table. Urinalysis was completed and shows 3+ leukocyte 1+ blood. I suspect patient has urinary tract infection will give her prescription for Macrobid. Initially was going to give her some Bactrim however that will interact with her losartan so I feel that Macrobid was the better choice. I also sent in prescription for Pyridium for discomfort. Supportive measures were discussed with the patient and she voiced understanding of discharge instruction
[2022-03-12 08:27] VITALS: BP 139/83; PULSE 92; RESP 16; TEMP 37.2; O2SAT 98
== END 2022-03-12 08:32 | disposition home or self-care (01) ==
PROVIDERS: Emergency Provider Nurse Practitioner Family; PCP Family Medicine
DX: N30.01 Acute cystitis with hematuria (principal); J45.909 Unspecified asthma, uncomplicated; I10 Essential (primary) hypertension; E78.00 Pure hypercholesterolemia, unspecified; K21.9 Gastro-esophageal reflux disease without esophagitis; Z86.16 Personal history of COVID-19
CPT/HCPCS: 81003; 87077; 87086; 87186; 99213; G0463

== ENCOUNTER 2022-03-20 08:56 | Outpatient (CLI) | payer BC, SELFPAY ==
[2022-03-20 19:15] LABS: Alanine Aminotransferase 23 U/L (6-35); Albumin Level 4.5 g/dL (3.5-5.1); Alkaline Phosphatase 69 U/L (38-126); Anion Gap 3 mmol/L (8-16); Aspartate Amino Transferase 40 U/L (14-36); Bilirubin,Total 0.5 mg/dL (0.2-1.3); Blood Urea Nitrogen 19 mg/dL (7-17); Calcium 9.3 mg/dL (8.4-10.2); Carbon Dioxide 33 mmol/L (22-30); Chloride 100 mmol/L (98-107); Cholesterol 223 mg/dL (0-200); Estimated Glomerular Filt Rate > 60; Glucose 82 mg/dL (65-110); HDL Direct 73 mg/dL; Potassium 4.4 mmol/L (3.4-5.0); Sodium 136 mmol/L (137-145); Triglycerides 77 mg/dL (<150)
[2022-03-20 19:25] LABS: LDL Cholesterol Direct 89 mg/dL
== END 2022-03-20 08:57 | disposition home or self-care (01) ==
LOC: ANHGOSHLAB 08:59
PROVIDERS: PCP Family Medicine; Visit Provider Family Medicine
DX: I10 Essential (primary) hypertension (principal); E78.00 Pure hypercholesterolemia, unspecified
CPT/HCPCS: 36415; 80053; 80061

== ENCOUNTER 2022-04-04 08:00 | Outpatient (RCR) | payer BC, SELFPAY ==
--- NOTE | 2022-04-04 13:11 | PTOPDC ---
Assessment and note entered by Dwight Silva, PT Evaluation Information Assessment Status Discharge Diagnosis R knee scope Onset 11/29/21 Subjective Information Patient reports she is able to do more riding her exercise bike for 10 miles, walk her dogs, and she does her exercises at home, but the pain in the knee is still there and she is not sure why she is not able to be pain free. Reported Pain Level Pain Score 4: Self Report Assessment PT Clinical Summary Bety has been coming to the clinic since 12/01/21 and done 16 physical therapy appointments. She has met her goals besides full extension and pain control. At this time feel it is prudent for patient to go back to surgeon to have knee checked out and if wanting some more focused physical therapy will follow the surgeons recommendations. Discharge for now will evaluate the patient again with new orders. Plan of Care PT Services Indicated No Treatment Frequency and discharge from skilled physical therapy. Duration
== END 2022-04-04 13:28 | disposition home or self-care (01) ==
LOC: ANHPT 08:00
PROVIDERS: PCP Family Medicine; Visit Provider Orthopaedic Surgery
DX: Z48.89 Encounter for other specified surgical aftercare (principal); Z98.890 Other specified postprocedural states
CPT/HCPCS: 97014; 97035; 97140; 97161; 97530; G0283

== ENCOUNTER 2022-09-10 08:10 | Emergency (ER) | payer BC, SELFPAY ==
[2022-09-10 08:16] VITALS: BP 123/81; PULSE 98; RESP 16; TEMP 36.8; O2SAT 98
--- NOTE | 2022-09-10 08:21 | ED.URI ---
HPI - URI/Sore Throat General Chief Complaint: Upper Respiratory Infection Stated Complaint: cough,sinus pressure,congestion,ear pain Time Seen by Provider: 09/10/22 08:22 Source: patient, RN notes reviewed and old records reviewed Mode of arrival: ambulatory Limitations: no limitations History of Present Illness HPI Narrative: 52 year old female who presents to [facility] with complaints of 3-4 days of cough, frontal headache, head congestion, pressure bilateral ears, some irritation to her throat with no known fevers. Patient did do home COVID test which was negative. Patient was treated on August 01 for bronchitis with steroid and antibiotics and reports her symptoms resolved. Patient does have history of asthma and seasonal allergies and takes daily Singulair, Trilogy and Flonase, has used her rescue inhaler a few times for the cough. MD elicited complaint: cough, nasal congestion and other (ear pressure) Pertinent past history: asthma and seasonal allergies Onset (ago): day(s) (4) Pain scale (0-10): 3 Able to tolerate fluids by mouth: Yes Treatments prior to arrival: other (inhaler, Singulair and Flonase) Related Data Home Medications Medication Instructions Recorded Confirmed fluticasone fur. 100 mcg-umeclid 1 inh inhalation DAILY 06/24/20 09/10/22 62.5 mcg-vilant 25 mcg inhalat.powder (Trelegy Ellipta) acetaminophen 650 mg 650 mg PO Q12H 12/14/21 09/10/22 tablet,extended release (Tylenol Arthritis Pain) Allergies Allergy/AdvReac Type Severity Reaction Status Date / Time No Known Allergies Allergy Unknown Verified 09/10/22 08:22 Review of Systems Review of Systems: CONSTITUTIONAL: Denies malaise, chills, sweats, or fever. EYES: Denies visual changes, redness, or discharge. ENT: Reports rhinorrhea, congestion, sinus pain, bilateral ear pressure, scratchy throat. CARDIOVASCULAR: Denies chest pain, palpitations, or edema. RESPIRATORY: Reports cough.? Denies acute dyspnea. GASTROINTESTINAL: Denies abdominal pain, nausea, vomiting, diarrhea SKIN: Denies rash or itching. MUSCULOSKELETAL: Denies myalgia. NEUROLOGIC: some frontal headache. All systems reviewed & are unremarkable except as noted in HPI and below PMFSH Past Medical History Medical History (Updated 09/10/22 @ 08:36 by Tika Barba NP) Anemia Asthma exacerbation BMI 29.0-29.9,adult Chronic GERD Essential (primary) hypertension History of COVID-04 June 2021 Hypertension Mild persistent asthma, uncomplicated Pure hypercholesterolemia, unspecified Right knee pain Surgical History Surgical History (Updated 09/10/22 @ 14:35 by Tika Barba NP) H/O: hysterectomy History of arthroscopy of right knee 1.partial synovectomy/anterior impingement February 2020 2. Right knee arthroscopy with extensive synovectomy, medial femoral condyle abrasion arthroplasty November 29, 2021 History of placement of ear tubes History of tonsillectomy Family History Family History Father Hypertension Family history of elevated blood lipids Social History Social History Smoking status: Never smoker Alcohol intake: current Drinks per week: 4 Alcohol use details: occasional Lack of Transportation: No Lack of Food: Never True Current Housing: I Have Housing Concerned About Future Housing: No Difficulty Paying Gas/Electric Bills: No Difficulty Paying for Meds: No Currently Unemployed: No Education: Master's Degree or Higher Difficulty w/ Childcare or Family Care: No Living arrangements: with family Occupation/Education: occupation Gender identity (if verbalized by the patient): Female Spiritual care concerns: No Comments At time of signature, agree with nursing past medical, surgical, social and family history. There is no relevant family history pertinent to the presenti
== END 2022-09-10 08:42 | disposition home or self-care (01) ==
PROVIDERS: Emergency Provider Registered Nurse; PCP Family Medicine
DX: J06.9 Acute upper respiratory infection, unspecified (principal); R05.2 Subacute cough; J45.909 Unspecified asthma, uncomplicated; K21.9 Gastro-esophageal reflux disease without esophagitis; I10 Essential (primary) hypertension; E78.00 Pure hypercholesterolemia, unspecified
CPT/HCPCS: 99213; G0463

== ENCOUNTER 2023-01-26 07:51 | Outpatient (CLI) | payer BC, SELFPAY ==
--- NOTE | ~2023-01-26 | MM_ITS ---
EXAMINATION: MM screening megan BI w randa HISTORY: Screening mammogram TECHNIQUE: Craniocaudal and mediolateral oblique 3-D tomosynthesis images were obtained and synthetic 2-D images were generated. CAD analysis was submitted and interpreted. COMPARISON: bilateral screening mammogram 09/14/2020 diagnostic left mammogram and complete left breast ultrasound, reported negative 08/19/2020, 08/04/2019 bilateral screening mammogram examinations BREAST PARENCHYMAL COMPOSITION: The breasts are heterogeneously dense, which may obscure small masses . FINDINGS: There is no evidence of suspicious mass, calcification, or architectural distortion to sugg est malignancy in either breast. There has been no suspicious interval change. IMPRESSION: 1. No mammographic evidence of malignancy. 2. Recommend routine screening mammography in one year. BI-RADS Category 1: Negative Reviewed, dictated and finalized at location A.
== END 2023-01-26 07:52 | disposition home or self-care (01) ==
LOC: ANHIMG 07:53
PROVIDERS: PCP Family Medicine; Visit Provider Family Medicine
DX: Z12.31 Encounter for screening mammogram for malignant neoplasm of breast (principal)
CPT/HCPCS: 77063; 77067

== ENCOUNTER 2024-01-29 08:22 | Outpatient (CLI) | payer BC, SELFPAY ==
--- NOTE | ~2024-01-29 | MM_ITS ---
EXAMINATION: MM screening megan BI w randa HISTORY: Screening TECHNIQUE: Craniocaudal and mediolateral oblique 3-D tomosynthesis images were obtained and synthetic 2-D images were generated. CAD analysis was submitted and interpreted. COMPARISON: Comparison to multiple prior studies sequentially, with oldest reviewed study dated 07/25. BREAST PARENCHYMAL COMPOSITION: Dense: The breasts are heterogeneously dense, which may obscure small masses FINDINGS: There is possible architectural distortion medially in the left breast on CC view, middle t hird. The right breast is stable without evidence for malignancy. IMPRESSION: 1. Possible architectural distortion in the left breast seen on CC view only. 2. Additional mammographic views and possible breast ultrasound are recommended. BI-RADS Category 0: Incomplete: Needs additional imaging evaluation. Reviewed, dictated and finalized at location B. IMPRESSION: 1. Possible architectural distortion in the left breast seen on CC view only. 2. Additional mammographic views and possible breast ultrasound are recommended . BI-RADS Category 0: Incomplete: Needs additional imaging evaluation.
== END 2024-01-29 08:23 | disposition home or self-care (01) ==
PROVIDERS: PCP Family Medicine; Visit Provider Family Medicine
DX: Z12.31 Encounter for screening mammogram for malignant neoplasm of breast (principal); R92.8 Other abnormal and inconclusive findings on diagnostic imaging of breast
CPT/HCPCS: 77063; 77067

== ENCOUNTER 2024-02-12 11:29 | Outpatient (CLI) | payer BC, SELFPAY ==
--- NOTE | ~2024-02-12 | MMUS_ITS ---
EXAMINATION: MM diagnostic megan LT w randa, US breast LT limited HISTORY: Possible left breast architectural distortion TECHNIQUE: Additional 3-D tomosynthesis images of the left breast were performed and synthetic 2-D im ages were generated. CAD analysis was submitted and interpreted. High resolution limited left breast ultrasound was performed. COMPARISON: 01/29/2024, 01/26/2023, 11/04/2021 BREAST PARENCHYMAL COMPOSITION:Dense: The breasts are heterogeneously dense, which may obscure small masses. FINDINGS: MAMMOGRAPHIC FINDINGS: Spot compression views demonstrate relative effacement of the area of concern at the central to upper left breast. No definite mass lesion seen. No definite persistent distortion. ULTRASOUND: Scanning of the central and upper left breast demonstrate no evidence of solid or cystic lesion. No s onographic abnormality seen in the region scanned. IMPRESSION: No mammographic evidence for malignancy. BI-RADS Category 1: Negative Reviewed, dictated and finalized at location . IMPRESSION: No mammographic evidence for malignancy. BI-RADS Category 1: Negative
== END 2024-02-12 11:30 | disposition home or self-care (01) ==
LOC: ANHIMG 11:30
PROVIDERS: PCP Family Medicine; Visit Provider Family Medicine
DX: R92.8 Other abnormal and inconclusive findings on diagnostic imaging of breast (principal)
CPT/HCPCS: 76642; 77061; 77065; G0279

== ENCOUNTER 2024-05-12 12:48 | Outpatient (CLI) | payer BC, SELFPAY ==
--- OUTSIDE RECORDS SUMMARY | 2024-05-12 13:20 | XMS_ITS | Patient Health Summary ---
Author Organization [facility] Address [address] [place] [address] Care Team Providers Care Draw End Hand Name Role Phone Alexis Thomas MD Primary Care Provider [phone] [facility],non-owned Affiliates and Associated Physician Practices is amultiple site organization consisting of ambulatory clinics and hospital sitesin [place], [place], [place] and [place]. This disclosure is being madepursuant to the Care Everywhere program and may not contain all information available regarding this patient. Last updated 18.[facility] Allergies No known active allergies Medications * Be aware that medications may not be up to date on this document. Alwaysverify current medications with the patient. * INCRUSE ELLIPTA 62.5 MCG/INH inhaler(Started 03/17/2019) Inhale 1 puff by mouth once daily * montelukast (SINGULAIR) 10 MG tablet(Started 02/26/2019) Take 10 mg by mouth once daily * metoprolol succinate XL 24hr (TOPROL XL) 25 MG tablet(Started 02/26/2019) Take 25 mg by mouth once daily * fluticasone propionate (FLONASE) 50 MCG/ACT nasal spray(Started 02/06/2019) SHAKE LQ AND U 1 TO 2 SPRAYS IEN QD PRN * doxycycline monohydrate 50 MG capsule(Started 03/08/2019) Take 50 mg by mouth once daily * azelastine (ASTELIN) 0.1 % nasal spray(Started 02/13/2019) U 2 SPRAYS IEN QD * atorvastatin (LIPITOR) 10 MG tablet(Started 02/26/2019) TK 1 T PO D * albuterol HFA (PROVENTIL;VENTOLIN;PROAIR) 108 (90 Base) MCG/ACT inhaler (Started 09/24/2018) INL 2 PFS PO Q 4 H PRN * guaiFENesin ER 12hr (MUCINEX) 600 MG tablet(Started 03/27/2019) Take 1 tablet by mouth every 12 hours 2 refills by 03/26/2020 * fluticasone-vilanterol (BREO ELLIPTA) 200-25 MCG/INH inhaler(Started 01/05/2020) Inhale 1 puff by mouth once daily 3 refills by 01/04/2021 Social History Tobacco Use Types Packs/Day Years Used Date Smoking Tobacco: Never Smokeless Tobacco: Never Alcohol Use Standard Drinks/Week Comments Yes 5 (1 standard drink = 0.6 oz pur e alcohol) Occasionally AUDIT-C Answer Date Recorded Frequency of Alcohol Consumption 2-3 times a wee k 03/27/2019 Average Number of Drinks 1 or 2 019 Frequency of Binge Drinking Less than monthly Sex and Gender Information Value Date Recorded Sex Assigned at Not on file Gender Identity Not on file Sexual Orientation Not on file Last Filed Vital Signs Vital Sign Reading Time Taken Comments Blood Pressure 138/91 04/23/2019 1:56 PM HAT FINISHING MATERIALS PREPARER Pulse 78 04/23/2019 1:56 PM HAT FINISHING MATERIALS PREPARER Temperature - - Respiratory Rate - - Oxygen Saturation 97% 04/23/2019 1:56 PM HAT FINISHING MATERIALS PREPARER Inhaled Oxygen Concentration - - Weight 80.3 kg (177 lb) 04/23/2019 1:56 PM HAT FINISHING MATERIALS PREPARER Height 163.8 cm (5' 4.5 ) 04/23/2019 1:56 PM HAT FINISHING MATERIALS PREPARER Body Mass Index 29.91 04/23/2019 1:56 PM HAT FINISHING MATERIALS PREPARER Care Teams Draw End Hand Relationship Specialty Start Date End Date Alexis Thomas MD [address] [place] [id number] PCP - General Family Medicine 03/27/19
--- OUTSIDE RECORDS SUMMARY | 2024-05-12 13:20 | XMS_ITS | Clinical Summary ---
Author Organization [email or web address] Address [address] [place] [address] Care Team Providers Care Primary Health Organisation Manager Name Role Phone Alexis Thomas MD Primary Care Provider [phone] Source Comments [email or web address],non-owned Affiliates and Associated Physician Practices is amultiple site organization consisting of ambulatory clinics and hospital sitesin [place], [place], [place] and [place]. This disclosure is being madepursuant to the Care Everywhere program and may not contain all information available regarding this patient. Last updated 18.[email or web address] Allergies No known active allergies Medications * Be aware that medications may not be up to date on this document. Alwaysverify current medications with the patient. Medication Sig Dispensed Refills Start Date End Date Status INCRUSE ELLIPTA 62.5 MCG/INH inhaler Inhale 1 puff by mouth once daily 03/17/2019 Active montelukast (SINGULAIR) 10 MG tablet Take 10 mg by mouth once daily 02/26/2019 Active metoprolol succinate XL 24hr (TOPROL XL) 25 MG tablet Take 25 mg by mouth once daily 02/26/2019 Active fluticasone propionate (FLONASE) 50 MCG/ACT nasal spray SHAKE LQ AND U 1 TO 2 SPRAYS IEN QD PRN 02/06/2019 Active doxycycline monohydrate 50 MG capsule Take 50 mg by mouth once daily 03/08/2019 Active azelastine (ASTELIN) 0.1 % nasal spray U 2 SPRAYS IEN QD 02/13/2019 Active atorvastatin (LIPITOR) 10 MG tablet TK 1 T PO D 02/26/2019 Active albuterol HFA (PROVENTIL;VENTOLIN;PA OAIR) 108 (90 Base) MCG/ACT inhaler INL 2 PFS PO Q 4 H PRN 09/24/2018 Active guaiFENesin ER 12hr (MUCINEX) 600 MG tablet Take 1 tablet by mouth every 12 hours 60 tablet 2 03/27/2019 Active fluticasone-vilanterol (BREO ELLIPTA) 200-25 MCG/INH inhaler Inhale 1 puff by mouth once daily 1 Inhaler 3 01/05/2020 Active Family History Medical History Relation Name Comments Allergies - Food Father Hypertension Father CAD (Coronary Artery Disease) Maternal Grandfather CAD (Coronary Artery Disease) Mother CVA Mother Relation Name Status Comments Father Maternal Grandfather Mother Social History Tobacco Use Types Packs/Day Years [...] Comments Blood Pressure 138/91 04/23/2019 1:56 PM RUG REPAIRER Pulse 78 04/23/2019 1:56 PM RUG REPAIRER Temperature - - Respiratory Rate - - Oxygen Saturation 97% 04/23/2019 1:56 PM RUG REPAIRER Inhaled Oxygen Concentration - - Weight 80.3 kg (177 lb) 04/23/2019 1:56 PM RUG REPAIRER Height 163.8 cm (5' 4.5 ) 04/23/2019 1:56 PM RUG REPAIRER Body Mass Index 29.91 04/23/2019 1:56 PM RUG REPAIRER Plan of Treatment Health Maintenance Due Date Last Done Comments COLOGUARD (AGES 45-75) - COL ON CA SCREENING 1971 COLON MONITORING 1971 COLONOSCOPY - COLON CA SCREENING 1971 CT COLONOGRAPHY - COLON CA SCREENING 1971 Colorectal Cancer Screening 1971 FIT - COLON CA SCREENING 1971 FLEX SIG - COLON CA SCREENING 1971 MAMMOGRAM 1971 PAP SMEAR 1971 HIV SCREENING 1986 HEPATITIS C SCREENING 02/09/1989 DTAP/TDAP/TD VACCINES (1 - Tdap) 1990 HEPATITIS B VACCINE (1 of 3 - 19+ 3-dose series) 1990 SCREENING FOR DIABETES 03/27/2019 PNEUMOCOCCAL VACCINE 50+ (1 of 1 - PCV) 2021 ZOSTER VACCINE (1 of 2) 2021 COVID-19 VACCINE (1 - 2023-2 5 season) 2023 INFLUENZA VACCINE (#1) 2023 DEPRESSION SCREENING 04/16/2024 HIB VACCINE Aged Out No longer eligi ble based on patient's age to complete this topic HPV VACCINE Aged Out No longer eligi ble based on patient's age to complete this topic MENINGOCOCCAL (Group B) VACCINE Aged Out No longer eligible based on patient's age to complete this topic MENINGOCOCCAL VACCINE Aged Out No pop dave eligible based on patient's age to complete this topic PNEUMOCOCCAL VACCINE Aged Out No long er eligible based on patient's age to complete this topic Care Teams Primary Health Organisation Manager Relationship Specialty Start Date End Date Alexis Thomas MD [address] [place] [address] PCP - General Family Medicine 03/27/19
--- OUTSIDE RECORDS SUMMARY | 2024-05-12 13:20 | XMS_ITS | Referral Summary ---
Author Organization [facility] Address [address] [place] [address] Care Team Providers Care Certified Emergency Vehicle Technician Name Role Phone Alexis Thomas MD Primary Care Provider [phone] Source Comments [facility],non-owned Affiliates and Associated Physician Practices is amultiple site organization consisting of ambulatory clinics and hospital sitesin [place], [place], [place] and [place]. This disclosure is being madepursuant to the Care Everywhere program and may not contain all information available regarding this patient. Last updated 18.[facility] Allergies No known active allergies Medications * [...] T PO D 02/26/2019 Active albuterol HFA (PROVENTIL;VENTOLIN;ND OAIR) 108 (90 Base) MCG/ACT inhaler INL 2 PFS PO Q 4 H PRN 09/24/2018 Active guaiFENesin ER 12hr (MUCINEX) 600 MG tablet Take 1 tablet by mouth every 12 hours 60 tablet 2 03/27/2019 Active fluticasone-vilanterol (BREO ELLIPTA) 200-25 MCG/INH inhaler Inhale 1 puff by mouth once daily 1 Inhaler 3 01/05/2020 Active Social History Tobacco Use Types Packs/Day Years [...] Comments Blood Pressure 138/91 04/23/2019 1:56 PM CARE COMPANION Pulse 78 04/23/2019 1:56 PM CARE COMPANION Temperature - - Respiratory Rate - - Oxygen Saturation 97% 04/23/2019 1:56 PM CARE COMPANION Inhaled Oxygen Concentration - - Weight 80.3 kg (177 lb) 04/23/2019 1:56 PM CARE COMPANION Height 163.8 cm (5' 4.5 ) 04/23/2019 1:56 PM CARE COMPANION Body Mass Index 29.91 04/23/2019 1:56 PM CARE COMPANION Plan of Treatment Not on file Care Teams Certified Emergency Vehicle Technician Relationship Specialty Start Date End Date Alexis Thomas MD [address] [place] [id number] PCP - General Family Medicine 03/27/19
== END 2024-05-12 12:49 | disposition home or self-care (01) ==
LOC: ANHAUDASC 12:50
PROVIDERS: PCP Family Medicine; Visit Provider Otolaryngology Otolaryngology/Facial Plastic Surgery
DX: H93.12 Tinnitus, left ear (principal); H90.3 Sensorineural hearing loss, bilateral
CPT/HCPCS: 92557; 92567

== ENCOUNTER 2024-06-03 07:56 | Outpatient (CLI) | payer BC, SELFPAY ==
--- NOTE | ~2024-06-03 | MR_ITS ---
EXAMINATION: MR IAC wo/w con DATE: 06/03/2024 08:44 INDICATION: Tinnitus, left ear. TECHNIQUE: Magnetic resonance imaging (MRI) of the brain, brainstem, and internal auditory canals was performed without and with 15 mL MultiHance intravenous contrast. COMPARISON: None. FINDINGS: There are scattered areas of nonspecific increased T2-weighted signal intensity in the cere bral white matter. There is no intracranial hemorrhage, acute infarction, or abnormal intracranial ma ss lesion. The ventricles are normal in size. The internal auditory canals, inner ears, tympanic cavi ties, and mastoid air cells are normal. There is mild mucosal thickening in the paranasal sinuses. Th e orbits are normal. IMPRESSION: 1. Mild nonspecific cerebral white matter disease with a periventricular predominance, which may be c hronic small vessel ischemic disease or multiple sclerosis. Reviewed, dictated and finalized at location A. ICAL TRANSPLANT COORDINATOR IMPRESSION: 1. Mild nonspecific cerebral white matter disease with a periventricular predom inance, which may be chronic small vessel ischemic disease or multiple sclerosi s.
== END 2024-06-03 07:57 | disposition home or self-care (01) ==
PROVIDERS: PCP Family Medicine; Visit Provider Otolaryngology Otolaryngology/Facial Plastic Surgery
DX: H93.12 Tinnitus, left ear (principal); R90.82 White matter disease, unspecified
CPT/HCPCS: 70553; A9577

== ENCOUNTER 2024-07-24 01:02 | Day surgery (SDC) | payer BC, SELFPAY ==
[2024-07-15 10:55] VITALS: BMI 30.1
--- OUTSIDE RECORDS SUMMARY | 2024-07-24 01:05 | XMS_ITS | Clinical Summary ---
Author Organization [facility] Address [address] [place] [address] Care Team Providers Care Electrical Solderer Name Role Phone Nanette Stover DO Primary Care Provider [phone] Allergies No known active allergies Medications albuterol HFA (PROVENTIL HFA,VENTOLIN HFA,PROAIR HFA) 90 mcg/actuation inhaler Inhale 1 puff 09/24/2018 Active ALPRAZolam (XANAX) 0.25 mg tablet Take 1 tablet (0.25 mg total) by mouth 2 (two) times a day as needed 05/19/2024 Active atorvastatin (LIPITOR) 40 mg tablet Take 1 tablet (40 mg total) by mouth daily Active fluticasone propionate (FLONASE) 50 mcg/actuation nasal spray 1 spray Active Trelegy Ellipta 100-62.5-25 mcg inhaler 1 puff 07/07/2024 Active lisinopriL (PRINIVIL,ZESTRI L) 5 mg tablet Take 1 tablet (5 mg total) by mouth daily 06/16/2024 Active metoprolol XL (TOPROL-XL) 25 mg extended release tablet Take 1 tablet (25 mg total) by mouth daily Active montelukast (SINGULAIR) 10 mg tablet Take 1 tablet (10 mg total) by mouth daily Active Active Problems Problem Noted Date Diagnosed Date Multiple sclerosis 07/07/2024 Assessment & Plan (07/07/2024 12:24 PM CDT): The patient is presenting for follow up of an abnormal brain scan. She recently underwent a brain MRI to further evaluate left ear tinnitus. Her MRI demonstrated multiple T2 hyperintense lesions in the periventricular white matter consistent with underlying demyelinating disease. She has a family history of multiple sclerosis with her mother being affected. She has no clinical symptoms attributable to underlying multiple sclerosis and specifically no focal weakness, numbness, or vision loss. Her neurological exam shows no deficits. We discussed the findings on her MRI. The T2 hyperintense lesions have a morphology and location consistent with underlying multiple sclerosis. Given her family history I suspect she has underlying multiple sclerosis. 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 We discussed benefits and downsides of treating radiologically isolated syndrome. There are some patients with radiologically isolated syndrome whenever develops symptoms attributable to underlying multiple sclerosis. Recent clinical studies have shown that starting treatment for patients with radiologically isolated syndrome further reduce the likelihood that she would never develop symptoms of her multiple sclerosis. Given this I recommended starting disease modifying therapy and we specifically discussed Zeposia as an option given its efficacy and overall safety. We discussed the side effects including macular edema, exacerbation of underlying heart block, and increased risk of mild infections. We also discussed the utility foregoing disease modifying therapy and continue to monitor with the understanding that the patient would be at risk of new disease activity from her multiple sclerosis. The patient was agreeable to starting Zeposia and we will obtain blood work an EKG today to start the medication. We will also obtain a cervical and thoracic MRI to further evaluate for spinal cord involvement of her multiple sclerosis. We also discussed vitamin-D supplementation and the patient is currently on 6000 units of vitamin-D. I will see the patient back in follow up in three months to further evaluate her response to medication and instructed to reach out if any questions arise in the meantime. Overall, given her lack of clinical symptoms and the natural history of multiple sclerosis that decreases in severity with age, I anticipate she will do very well from a functional standpoint and that we will be able to effectively treat any new disease activity. Hypertension 07/07/2024 Hyperlipidemia 07/07/2024 Tinnitus of left ear 07/07/2024 Encounters Date Type Department Care Team Description 07/23/2024 Telephone [facility] [address] [place] [address] Becky Ladd RPh 07/13/2024 Documentation [facility] [address] [place] [address] Yuan Anton MD 07/07/2024 1:20 PM CDT Lab [facility] Outpatient Lab [address] [place] [address] Vitamin D deficiency; Multiple sclerosis (HCC); Screening for viral disease 07/07/2024 1:00 PM CDT - 07/07/2024 11:59 PM CDT Hospital Encounter [facility] Cardiac Testing [address] [place] [id number] Multiple sclerosis (HCC) Discharge Disposition: Discharge to home or self care 07/07/2024 11:00 AM CDT Office Visit [facility] [address] [place] [address] Yuan Anton MD Multiple sclerosis (HCC) (Primary Dx); Screening for viral disease; Vitamin D deficiency 06/03/2024 - 06/03/2024 11:59 PM PHOTOGRAPHIC PRINTER Hospital Encounter [facility] - Imaging [phone] Discharge Disposition: Discharge to home or self care from Last 3 Months Medical History Medical History Date Comments Multiple sclerosis (HCC) 07/07/2024 Hyperlipidemia 07/07/2024 Hypertension 07/07/2024 Tinnitus of left ear 07/07/2024 Social History Tobacco Use Types Packs/Day Years Used Date Smoking Tobacco: Unknown Tobacco Cessation:Counseling Given: Not Answered Comments Unknown Sex and Gender Information Value Date Recorded Sex Assigned at Not on file Legal Sex Female 10:59 AM PHOTOGRAPHIC PRINTER Gender Identity Not on file Sexual Orientation Not on file Obstetrics History Last Filed Vital Signs Vital Sign Reading Time Taken Comments Blood Pressure 140/84 07/07/2024 11:12 AM CDT Pulse 80 07/07/2024 11:12 AM CDT Temperature 35.9 C (96.6 F) 07/07/2024 11:12 AM CDT Respiratory Rate - - Oxygen Saturation 98% 07/07/2024 11:12 AM CDT Inhaled Oxygen Concentration - - Weight 82.7 kg (182 lb 6.4 oz) 07/07/2024 11:12 AM CDT Height 162.6 cm (5' 4 ) 07/07/2024 11:12 AM CDT Body Mass Index 31.31 07/07/2024 11:12 AM CDT Plan of Treatment Health Maintenance Due Date Last Done Comments Breast Cancer Screening-Mammogram 1971 Cervical Cancer Screening 1971 Colon Cancer Screening-Colonoscopy 1971 Depression Screening 1971 Hepatitis B Screening 1989 Regular Well Visit/Exam 18-64 1989 Zoster Vaccine (1 of 2) 2021 Covid-19 Vaccine (4 - 2023-2 5 season) 2023 03/04/2023, 03/01/2022, 03/01/2021 Influenza Vaccine (Season Ended) 2024 01/24/2021, 01/17/2019, 01/15/2018 DTaP/Tdap/Td Vaccine (2 - Td or Tdap) 08/08/2031 08/07/2021 Hepatitis C Screening Completed 07/07/2024 Pneumococcal vaccine <65 Aged Out No longer eligible based on patient's age to complete this topic Procedures Procedure Name Priority Date/Time Associated Diagnosis Comments REFLEX STRATIFY JCV AB INHIBITION Routine 07/07/2024 1:26 PM CDT EGFR Routine 07/07/2024 1:26 PM CDT Multiple sclerosis (HCC) DIFFERENTIAL AUTO Routine 07/07/2024 1:2 6 PM CDT Multiple sclerosis (HCC) CBC WITH AUTO DIFFERENTIAL Routine 07/07/2024 1:26 PM CDT Multiple sclerosis (HCC) COMPREHENSIVE METABOLIC PANEL Routine 07/07/2024 1:26 PM CDT Multiple sclerosis (HCC) STRATIFY JCV(TM) AB W/REFLEX Routine 07/07/2024 1:26 PM CDT Multiple sclerosis (HCC) IMMUNOGLOBULIN PROFILE Routine 1:26 PM CDT Multiple sclerosis (HCC) TB TEST, QUANTIFERON GOLD Routine 07/07/2024 1:26 PM CDT Multiple sclerosis (HCC) VITAMIN D 25 HYDROXY Routine 07/07/2024 1:26 PM CDT Vitamin D deficiency HEPATITIS B CORE ANTIBODY, TOTAL Routine 07/07/2024 1:26 PM CDT Screening for viral disease HEPATITIS PANEL, ACUTE Routine 1:26 PM CDT Multiple sclerosis (HCC) VARICELLA ZOSTER ANTIBODY, IGG Routine 07/07/2024 1:26 PM CDT Multiple sclerosis (HCC) ECG 12-LEAD Routine 07/07/2024 1:10 PM CDT Multiple sclerosis (HCC) NEURO MR OUTSIDE REFERENCE Routine 06/03/2024 12:00 AM PHOTOGRAPHIC PRINTER from Last 3 Months Results * REFLEX STRATIFY JCV AB INHIBITION (07/07/2024 1:26 PM CDT) Pathologist [facility] JCV ab inhibition FINAL RSLT: NEGATIVE [facility] Comment: REFERENCE RANGE: NEGATIVE INTERPRETATION: Positive: Antibodies to JOSE ALEJANDRO virus (JCV) detected indicating the patient has been exposed to JCV at an undetermined time Negative: Antibodies to JCV not detected Test Performed at: [employer]/[facility] [id number] [place] [address] JUAN M CARD MD,PHD,ENA Blood 07/07/2024 1:26 PM CDT 07/07/2024 5:49 PM CDT Yuan Anton MD LAB BLOOD ORDERABLES Final Result [facility] [address] Department of Laboratories [place], [place] [id number] [facility] * Immunoglobulin profile (07/07/2024 1:26 PM CDT) Pathologist [facility] Immunoglobulin G 1,199 700 - 1,600 mg/dL Immunoglobulin A 275 70 - 400 mg/dL [facility] Immunoglobulin M 94 40 - 230 mg/dL [facility] Blood 07/07/2024 1:26 PM CDT 07/07/2024 1:38 PM CDT Yuan Anton MD LAB BLOOD ORDERABLES Final Result [facility] [address] [place] [address] * eGFR (07/07/2024 1:26 PM CDT) [facility] eGFR >90 >=60 mL/min/1. 73 m2 Comment: Interpretive Data Reference Interval Normal >/= 90 mL/min/1.73m2 Mildly decreased* 60 - 89 mL/min/1.73m2 Mildly to moderately decreased 45 - 59 mL/min/1.73m2 Moderately to severely decreased 30 - 44 mL/min/1.73m2 Severely decreased 15 - 29 mL/min/1.73m2 Kidney Failure < 15 mL/min/1.73m2 *Relative to young adult level Estimated glomerular filtration rate is determined by the 2020 CKD-EPI equation recommended by the National Kidney Foundation (A Unifying Approach to GFR Estimation: Recommendations of the NKF-ASK Task Force on Reassessing the Inclusion of Race in Diagnosing Kidney Disease, JASN 2020). The CKD-EPI equation should not be used for patients with unstable renal function and has not been validated in children and those over 70. Current interpretive data was last reviewed 2021. Blood 07/07/2024 1:26 PM CDT 07/07/2024 1:38 PM CDT Yuan Anton MD LAB BLOOD ORDERABLES Final Result [facility] [address] [place] [address] * Differential, auto (07/07/2024 1:26 PM CDT) Neutrophil abs 4.3 1.5 - 6.5 K/cumm Imm gran abs 0.0 0.0 - 0.1 K/cumm [facility] Lymphocyte abs 1.7 0.8 - 3.3 K/cumm [facility] Monocyte abs 0.4 0.2 - 0.8 K/cumm [facility] Eosinophil abs 0.0 0.0 - 0.5 K/cumm [facility] Basophil abs 0.1 0.0 - 0.1 K/cumm [facility] Neutrophil pct 66.2 % [facility] Comment: Interpretive Data Percent cell count reference ranges are not reported, since discordance with absolute values may lead to misinterpretation of CBC data. Current Interpretive Data was last revised on 2017. Imm gran pct 0.3 % [facility] Comment: Interpretive Data Percent cell count reference ranges are not reported, since discordance with absolute values may lead to misinterpretation of CBC data. Current Interpretive Data was last revised on 2017. Lymphocyte pct 26.0 % [facility] Comment: Interpretive Data Percent cell count reference ranges are not reported, since discordance with absolute values may lead to misinterpretation of CBC data. Current Interpretive Data was last revised on 2017. Monocyte pct 6.1 % [facility] Comment: Interpretive Data Percent cell count reference ranges are not reported, since discordance with absolute values may lead to misinterpretation of CBC data. Current Interpretive Data was last revised on 2017. Eosinophil pct 0.6 % [facility] Comment: Interpretive Data Percent cell count reference ranges are not reported, since discordance with absolute values may lead to misinterpretation of CBC data. Current Interpretive Data was last revised on 2017. Basophil pct 0.8 % [facility] Comment: Interpretive Data Percent cell count reference ranges are not reported, since discordance with absolute values may lead to misinterpretation of CBC data. Current Interpretive Data was last revised on 2017. Blood 07/07/2024 1:26 PM CDT 07/07/2024 1:38 PM CDT us Yuan Anton MD LAB BLOOD ORDERABLES Final Result Performing Organization Address City/[facility]/ZIP Co de Phone Number [facility] [address] [place] [address] * (ABNORMAL) Stratify JCV(TM) antibody w/ reflex (07/07/2024 1:26 PM CDT) Pathologist [facility] JCV Antibody INDETERMI ABBIE(A) [facility] Comment: See Inhibition Assay result below for the final antibody result. Index interpretive criteria: <0.20 negative 0.20-0.40 indeterminate >0.40 positive INTERPRETATION Negative: Antibodies to JCV not detected. Indeterminate: Low level reactivity detected, see Inhibition Assay result below for the final antibody result. Positive: Antibodies to JOSE ALEJANDRO virus (JCV) detected indicating the patient has been exposed to JCV at an undetermined time. The STRATIFY JCV(R) DxSelect(TM) Antibody Test is an enzyme-linked immunosorbent assay (ABBEY) designed to detect JCV antibodies to help identify individuals who have been exposed to the virus. Samples with low level reactivity in the detection assay are retested in a confirmation (inhibition) assay to confirm presence or absence of JCV-specific antibodies. Retrospective analyses of post marketing data from various sources, including observational studies and spontaneous reports obtained worldwide, suggest that the risk of developing PML may be associated with relative levels of serum anti-JCV antibody as measured by anti-JCV antibody index.(1) (1) TYSABRI(natalizumab)US Prescribing Information Test Performed at: [employer]/[facility] [id number] [place] [address] JUAN M CARD MD,PHD,ENA JCV Index Value 0.20(H) [facility] Blood 07/07/2024 1:26 PM CDT 07/07/2024 5:49 PM CDT Yuan Anton MD LAB BLOOD ORDERABLES Final Result Performing Organization Address City/[facility]/ZIP Co de Phone Number [facility] [address] [place] [address] [facility] * TB test, quantiferon gold (07/07/2024 1:26 PM CDT) [facility] Quantiferon TB Gold Negative Negative [facility] ref Lab Comment: No interferon-gamma response to M. tuberculosis antigens was detected. Latent infection with M. tuberculosis is unlikely. A single negative result does not exclude infection with M. tuberculosis. In patients at high risk for M.tuberculosis infection, a second test should be considered in accordance with the 2017 ATS/IDSA/CDC Clinical Practice Guidelines for Diagnosis of Tuberculosis in Adults and Children [Adebayo VICENTE et. al. Clin. Infect. Dis. 2017;64(2):111-115]. The reference range for the 'TB1 Ag minus Nil Result' and 'TB2 Ag minus Nil Result' is an Interferon-gamma level <0.35 IU/mL. TB-Nil 0.00 IUnits/mL [facility] TB2-Nil 0.03 IUnits/mL [facility] Mitogen-Nil 3.43 IUnits/mL [facility] NIL 0.01 IUnits/mL [facility] Comment: Test Performed by: [place] [address] Manager Care Management: Cari Mir Ph.D.; CLIA# [id number] Blood 07/07/2024 1:26 PM CDT 07/07/2024 2:14 PM CDT Yuan Anton MD LAB BLOOD ORDERABLES Final Result [facility] [address] Department [place] [address] [facility] ref Lab * CBC with auto differential (07/07/2024 1:26 PM CDT) [facility] WBC 6.4 3.8 - 9.9 K/cumm Hgb 14.0 11.9 - 15.5 g/dL [facility] Hct 42.9 35.6 - 45.5 % [facility] Plt 320 150 - 400 K/cumm [facility] MPV 10.1 9.1 - 12.3 fL [facility] RBC 4.60 3.90 - 5.20 M/cumm [facility] MCV 93.3 81.3 - 96.4 fL [facility] MCH 30.4 27.1 - 33.3 pg [facility] MCHC 32.6 32.3 - 35.7 g/dL [facility] RDW CV 13.2 11.1 - 14.9 % [facility] RDW SD 45.0 35.7 - 48.1 fL [facility] NRBC abs 0.00 0.00 - 0.01 K/cumm [facility] Blood 07/07/2024 1:26 PM CDT 07/07/2024 1:38 PM CDT us Yuan Anton MD LAB BLOOD ORDERABLES Final Result [facility] [address] Department [place] [address] * Hepatitis panel, acute Blood (07/07/2024 1:26 PM CDT) Hep A IgM Nonreactive Nonreactive Comment: Interpretive Data: If Hep A IgM Ab is reported as Equivocal, a new sample should be drawn in two weeks for testing. Current interpretive data was last revised on 19. Hep B core IgM Nonreactive Nonreactive [facility] Comment: Interpretive Data If HepB Core IgM Ab is reported as Equivocal, a new sample should be drawn in two weeks for testing. Current interpretive data was last revised on 19. Hep C Ab Nonreactive Nonreactive [facility] Comment: Interpretive Data Nonreactive: Antibodies to HCV not detected. Does NOT exclude the possibility of recent exposure to HCV. Equivocal: Equivocal for HCV antibodies. Supplemental molecular testing will be automatically performed to determine infection status in accordance with current CDC screening recommendations. Reactive: Positive for HCV antibodies. This may represent current or past HCV infection. Supplemental molecular testing will be automatically performed to determine current infection status in accordance with current CDC screening recommendations. Interpretive data was last revised on 2019. HepBsAg Nonreactive Nonreactive [facility] Blood 07/07/2024 1:26 PM CDT 07/07/2024 1:38 PM CDT Yuan Anton MD LAB MICROBIOLOGY - GE NERAL ORDERABLES Final Result Performing Organization Address City/[facility] Co de Phone Number [facility] [address] [place] [address] * Hepatitis B core antibody, total Blood (07/07/2024 1:26 PM CDT) [facility] Hep B core IgG/IgM Nonreactive Nonreactive Comment:Testing performed by : [facility], [address] [place] [address]., [address] Blood 07/07/2024 1:26 PM CDT 07/07/2024 4:57 PM CDT Yuan Anton MD LAB MICROBIOLOGY - GE NERAL ORDERABLES Final Result Performing Organization Address City/[facility] Co de Phone Number [facility] [address] [place] [address] * Vitamin D 25 hydroxy (07/07/2024 1:26 PM CDT) [facility] Vitamin D 25-OH 41 30 - 80 ng/mL Blood 07/07/2024 1:26 PM CDT 07/07/2024 1:38 PM CDT Yuan Anton MD LAB BLOOD ORDERABLES Final Result Performing Organization Address City/[facility] Co de Phone Number [facility] [address] [place] [address] * Varicella Zoster IgG antibody Blood (07/07/2024 1:26 PM CDT) [facility] VZV IgG Reactive Reactive Comment: Reactive: Results suggest response to immunization or prior exposure to the virus. Testing performed by: [facility], [address] [place] [address], [place] [address] Blood 07/07/2024 1:26 PM CDT 07/07/2024 4:57 PM CDT Yuan Anton MD LAB MICROBIOLOGY - NERKY ORDERABLES Final Result [facility] [address] Department [place] [address] * (ABNORMAL) Comprehensive metabolic panel (07/07/2024 1:26 PM CDT) Sodium 140 135 - 145 mmol/L Potassium, pl 3.8 3.3 - 4.9 mmol/L [facility] Chloride 101 97 - 110 mmol/L [facility] CO2 25 22 - 32 mmol/L [facility] Anion gap 14 2 - 15 mmol/L [facility] BUN 15 6 - 25 mg/dL [facility] Creatinine 0.59(L) 0.60 - 1.10 mg/dL [facility] Glucose 92 70 - 199 mg/dL [facility] Comment: Interpretive Data Fasting glucose >/= 126 mg/dl is diagnostic for diabetes. Fasting is defined as no caloric intake for at least 8 hours. Fasting glucose between 100 mg/dl to 125 mg/dl is diagnostic of prediabetes. In a patient with classic symptoms of hyperglycemia or hyperglycemic crisis, a random glucose >/= 200 mg/dl is diagnostic for diabetes. In the absence of unequivocal hyperglycemia, results should be confirmed by repeat testing. The classification and Diagnosis of Diabetes Diabetes Care 2021; 46: S19-S40. Current interpretive data was last revised 2022. Calcium 9.7 8.5 - 10.3 mg/dL [facility] Bilirubin, total 0.3 0.1 - 1.2 mg/dL [facility] Protein, pl 8.1 6.5 - 8.5 g/dL [facility] Albumin 4.4 3.5 - 5.0 g/dL [facility] Alk phos 80 40 - 130 Units/L [facility] ALT 19 7 - 45 Units/L [facility] AST 23 10 - 45 Units/L [facility] Blood 07/07/2024 1:26 PM CDT 07/07/2024 1:38 PM CDT Yuan Anton MD LAB BLOOD ORDERABLES Final Result Performing Organization Address [facility] de Phone Number [facility] [address] Department [place] [address] * ECG 12 lead (07/07/2024 1:10 PM CDT) 07/07/2024 1:08 PM CDT Narrative [facility] - 07/08/2024 10:55 AM CDT Vent Rate: 86 bpm RR Interval: 694 msec [place] Interval: 167 msec QRS Duration: 102 msec QT Interval: 374 msec QTC Interval: 417 msec P-R-T [place]: 62 - 26 - 36 degrees IMPRESSION: SINUS RHYTHM INCOMPLETE RIGHT BUNDLE BRANCH BLOCK [90+ ms QRS DURATION, TERMINAL R IN V1/V2, 40+ ms S IN I/aVL/V4/V5/V6] BORDERLINE ECG Electronically Signed By: Moe Martinez MD, [facility] Yuan Anton MD ECG ORDERABLES Final Result Performing Organization Address [facility] de Phone Number [facility] * Neuro MR Outside Reference (06/03/2024 12:00 AM PHOTOGRAPHIC PRINTER) Narrative RAD_PACS_OUTSIDE_FILM_[facility] - 06/24/2024 9:44 AM CDT This order has been auto-finalized and does not contain a result. Provider Transcribed Order IMG MRI PROCEDURES Fi nal Result Performing Organization Address [facility] Co de Phone Number [facility]OUTSIDE_FILM_[facility] from Last [address] [place] [place] [address] [place] [address] [facility] ACCESS CHOICE Care Teams Electrical Solderer Relationship Specialty Start Date End Date Nanette Stover DO [facility] [address] [place] [address] PCP - General Family Medicine 06/18/24
--- OUTSIDE RECORDS SUMMARY | 2024-07-24 01:05 | XMS_ITS | Encounter Summary ---
Author Organization [facility] Healthcare Address [address] [place] [address] Care Team Providers Care Automobile Body Repair Chief Name Role Phone Nanette Stover DO Primary Care Provider [phone] Encounter Details Date Type Department Care Team (Late st Contact Info) Description 07/23/2024 Telephone [facility] [address] [place] [id number] Becky Ladd RPh Social History Tobacco Use Types Packs/Day Years Used Date Smoking Tobacco: Unknown Comments Unknown Sex and Gender Information Value Date Recorded Sex Assigned at Not on file Legal Sex Female 10:59 AM SORT LINE Gender Identity Not on file Sexual Orientation Not on file documented as of this encounter Miscellaneous Notes * Telephone Encounter - Becky Ladd RPh - 07/23/2024 10:50 AM CDT [facility] - Prescription Status Patient Name: Silvana Tineo : 1970 Drug Name: Zeposia starter kit and 0.92mg capsules Quantity: 1 kit and #30 Day Supply: 30 Insurance Plan: [facility] Prior Authorization Required: Yes PA Completed via: CoverMyMeds ([place]:[id number]) PA Status: APPROVED Approval effective: Through 07/23/25 Plan preferred pharmacy [facility] specialty Notes to Office: Start from faxed to the hub Completed by: Becky Ladd RPh documented in this encounter Plan of Treatment Not on file documented as of this encounter Visit Diagnoses Not on filedocumented in this encounter Care Teams Automobile Body Repair Chief Relationship Specialty Start Date End Date Nanette Stover DO [address] [place] [address] PCP - General Family Medicine 06/18/24 documented as of this encounter
--- OUTSIDE RECORDS SUMMARY | 2024-07-24 01:05 | XMS_ITS | Clinical Summary ---
Author Organization [facility] [employer] Address [address] [place] [address] Care Team Providers Care Power Brake Rebuilder Name Role Phone Alexis Thomas MD Primary Care Provider [phone] Source Comments [facility] [employer],non-owned Affiliates and Associated Physician Practices is amultiple site organization consisting of ambulatory clinics and hospital sitesin [place], [place], [place] and [place]. This disclosure is being madepursuant to the Care Everywhere program and may not contain all information available regarding this patient. Last updated 18.MOVL [employer] Allergies No known active allergies Medications * [...] T PO D 02/26/2019 Active albuterol HFA (PROVENTIL;VENTOLIN;NM OAIR) 108 (90 Base) MCG/ACT inhaler INL [...] Comments Blood Pressure 138/91 04/23/2019 1:56 PM MARKET RESEARCH SPECIALIST Pulse 78 04/23/2019 1:56 PM MARKET RESEARCH SPECIALIST Temperature - - Respiratory Rate - - Oxygen Saturation 97% 04/23/2019 1:56 PM MARKET RESEARCH SPECIALIST Inhaled Oxygen Concentration - - Weight 80.3 kg (177 lb) 04/23/2019 1:56 PM MARKET RESEARCH SPECIALIST Height 163.8 cm (5' 4.5 ) 04/23/2019 1:56 PM MARKET RESEARCH SPECIALIST Body Mass Index 29.91 04/23/2019 1:56 PM MARKET RESEARCH SPECIALIST Plan of Treatment Health Maintenance Due Date [...] VACCINE (1 - 2023-2 5 season) 2023 DEPRESSION SCREENING 04/16/2024 INFLUENZA VACCINE (Season Ended) 2024 HIB VACCINE Aged Out No longer eligi ble based on patient's age to complete this topic HPV VACCINE Aged Out No longer eligi ble based on patient's age to complete this topic MENINGOCOCCAL (Group B) VACC INE SHARED DECISION-MAKING Aged Out No longer eligibl e based on patient's age to complete this topic MENINGOCOCCAL GROUPS A/C/Y/W VACCINE Aged Out No longer eligible b ased on patient's age to complete this topic PNEUMOCOCCAL VACCINE Aged Out No long er eligible based on patient's age to complete this topic Care Teams Power Brake Rebuilder Relationship Specialty Start Date End Date Alexis Thomas MD [address] [place] [address] PCP - General Family Medicine 03/27/19
--- OUTSIDE RECORDS SUMMARY | 2024-07-24 01:05 | XMS_ITS | Referral Summary ---
Author Organization [facility] Address [address] [place] [address] Care Team Providers Care Cash Processing Specialist Name Role Phone Nanette Stover DO Primary Care Provider [phone] Encounters Date Type Department Care Team Description 07/23/2024 Telephone [facility] [address] [place] [id number] Becky Ladd griselda 07/13/2024 Documentation [facility] [address] [place] [address] [address], [place] [address] Yuan Anton MD 07/07/2024 1:20 PM CDT Lab [facility] Outpatient Lab [address] [place] [address] Vitamin D deficiency; Multiple sclerosis (HCC); Screening for viral disease 07/07/2024 1:00 PM CDT - 07/07/2024 11:59 PM CDT Hospital Encounter [facility] Cardiac Testing [address] [place] [address] Multiple sclerosis (HCC) Discharge Disposition: Discharge to home or self care 07/07/2024 11:00 AM CDT Office Visit [facility] [address] [place] [address] [address] [address] Yuan Anton MD Multiple sclerosis (HCC) (Primary Dx); Screening for viral disease; Vitamin D deficiency 06/03/2024 - 06/03/2024 11:59 PM TRANSPORT ASSISTANT Hospital Encounter [facility] - Imaging [phone] Discharge Disposition: Discharge to home or self care from Last 3 Months Allergies No known active allergies Medications albuterol [...] Hyperlipidemia 07/07/2024 Tinnitus of left ear 07/07/2024 Social History Tobacco Use Types Packs/Day Years Used Date Smoking Tobacco: Unknown Tobacco Cessation:Counseling Given: Not Answered Comments Unknown Sex and Gender Information Value Date Recorded Sex Assigned at Not on file Legal Sex Female 10:59 AM TRANSPORT ASSISTANT Gender Identity Not on file Sexual Orientation [...] 07/07/2024 11:12 AM CDT Plan of Treatment Not on file Procedures Procedure Name Priority Date/Time Associated Diagnosis [...] MR OUTSIDE REFERENCE Routine 06/03/2024 12:00 AM TRANSPORT ASSISTANT from Last 3 Months Results * REFLEX STRATIFY JCV AB INHIBITION (07/07/2024 1:26 PM CDT) [facility] JCV ab inhibition FINAL RSLT: NEGATIVE [facility] Comment: REFERENCE RANGE: NEGATIVE INTERPRETATION: Positive: Antibodies to JOSE ALEJANDRO virus (JCV) detected indicating the patient has been exposed to JCV at an undetermined time Negative: Antibodies to JCV not detected Test Performed at: [facility] [address] [place] [address] JUAN M CARD MD,PHD,ENA Blood 07/07/2024 1:26 PM CDT 07/07/2024 5:49 PM CDT Yuan Anton MD LAB BLOOD ORDERABLES Final Result Performing Organization Address [facility] Co de Phone Number [facility] [address] [employer] [place], [place] [id number] [facility] * Immunoglobulin profile (07/07/2024 1:26 PM CDT) [facility] Immunoglobulin G 1,199 700 - 1,600 mg/dL Immunoglobulin A 275 70 - 400 mg/dL [facility] Immunoglobulin M 94 40 - 230 mg/dL [facility] Blood 07/07/2024 1:26 PM CDT 07/07/2024 1:38 PM CDT Yuan Anton MD LAB BLOOD ORDERABLES Final Result Performing Organization Address City/[facility]/ZIP Co de Phone Number [facility] [address] [place] [address] * eGFR (07/07/2024 1:26 PM CDT) [facility] eGFR >90 >=60 mL/min/1. 73 m2 Comment: [...] of Race in Diagnosing Kidney Disease, JASN 202). The CKD-EPI equation should not be used for patients with unstable renal function and has not been validated in children and those over 70. Current interpretive data was last reviewed 2021. Blood 07/07/2024 1:26 PM CDT 07/07/2024 1:38 PM CDT us Yuan Anton MD LAB BLOOD ORDERABLES Final Result [facility] [address] Department [place] [address] * Differential, auto (07/07/2024 1:26 PM CDT) Neutrophil abs 4.3 1.5 - 6.5 K/cumm Imm gran abs 0.0 0.0 - 0.1 K/cumm [facility] Lymphocyte abs 1.7 0.8 - 3.3 K/cumm [facility] Monocyte abs 0.4 0.2 - 0.8 K/cumm [facility] Eosinophil abs 0.0 0.0 - 0.5 K/cumm [facility] Basophil abs 0.1 0.0 - 0.1 K/cumm [facility] Neutrophil pct 66.2 % [facility] Comment: Interpretive Data Percent cell count reference ranges are not reported, since discordance with absolute values may lead to misinterpretation of CBC data. Current Interpretive Data was last revised on 2017. Imm gran pct 0.3 % [facility] Comment: Interpretive Data Percent cell count reference ranges are not reported, since discordance with absolute values may lead to misinterpretation of CBC data. Current Interpretive Data was last revised on 2017. Lymphocyte pct 26.0 % [facility] Comment: Interpretive Data Percent cell count reference ranges are not reported, since discordance with absolute values may lead to misinterpretation of CBC data. Current Interpretive Data was last revised on 2017. Monocyte pct 6.1 % [facility] Comment: Interpretive Data Percent cell count reference ranges are not reported, since discordance with absolute values may lead to misinterpretation of CBC data. Current Interpretive Data was last revised on 2017. Eosinophil pct 0.6 % [facility] Comment: Interpretive Data Percent cell count reference ranges are not reported, since discordance with absolute values may lead to misinterpretation of CBC data. Current Interpretive Data was last revised on 2017. Basophil pct 0.8 % [facility] Comment: Interpretive Data Percent cell count reference ranges are not reported, since discordance with absolute values may lead to misinterpretation of CBC data. Current Interpretive Data was last revised on 2017. Blood 07/07/2024 1:26 PM CDT 07/07/2024 1:38 PM CDT us Yuan Anton MD LAB BLOOD ORDERABLES Final Result [facility] [address] Department [place] [address] * (ABNORMAL) Stratify JCV(TM) antibody w/ reflex (07/07/2024 1:26 PM CDT) JCV Antibody INDETERMI ABBIE(A) [facility] Comment: See [...] (1) TYSABRI(natalizumab)US Prescribing Information Test Performed at: [facility] [address] [place] [address] JUAN M CARD MD,PHD,ENA JCV Index Value 0.20(H) [facility] Blood 07/07/2024 1:26 PM CDT 07/07/2024 5:49 PM CDT Yuan Anton MD LAB BLOOD ORDERABLES Final Result [facility] [address] Department [place] [address] [facility] * TB test, quantiferon gold (07/07/2024 1:26 PM CDT) [facility] Quantiferon TB Gold Negative Negative [facility] Comment: No interferon-gamma response to M. tuberculosis antigens was detected. Latent infection with M. tuberculosis is unlikely. A single negative result does not exclude infection with M. tuberculosis. In patients at high risk for M.tuberculosis infection, a second test should be considered in accordance with the 2017 ATS/IDSA/CDC Clinical Practice Guidelines for Diagnosis of Tuberculosis in Adults and Children [Jeroinsohn CINTHIA et. al. Clin. Infect. Dis. 2017;64(2):111-115]. The reference range for the 'TB1 Ag minus Nil Result' and 'TB2 Ag minus Nil Result' is an Interferon-gamma level <0.35 IU/mL. TB-Nil 0.00 IUnits/mL [facility] TB2-Nil 0.03 IUnits/mL [facility] Mitogen-Nil 3.43 IUnits/mL [facility] NIL 0.01 IUnits/mL [facility] Comment: Test Performed by: [facility] [address] [place] [address] Wood Pattern Maker: Cari Mir Ph.D.; CLIA# [id number] Blood 07/07/2024 1:26 PM CDT 07/07/2024 2:14 PM CDT Yuan Anton MD LAB BLOOD ORDERABLES Final Result Performing Organization Address City/[facility]/ZIP Co de Phone Number [facility] [address] [place] [address] [facility] * CBC with auto differential (07/07/2024 1:26 PM CDT) WBC 6.4 3.8 - 9.9 K/cumm Hgb 14.0 11.9 - 15.5 g/dL [facility] Hct 42.9 35.6 - 45.5 % [facility] Plt 320 150 - 400 K/cumm [facility] MPV 10.1 9.1 - 12.3 fL [facility] RBC 4.60 3.90 - 5.20 M/cumm [facility] MCV 93.3 81.3 - 96.4 fL [facility] MCH 30.4 27.1 - 33.3 pg [facility] MCHC 32.6 32.3 - 35.7 g/dL [facility] RDW CV 13.2 11.1 - 14.9 % [facility] RDW SD 45.0 35.7 - 48.1 fL [facility] NRBC abs 0.00 0.00 - 0.01 K/cumm [facility] Blood 07/07/2024 1:26 PM CDT 07/07/2024 1:38 PM CDT Yuan Anton MD LAB BLOOD ORDERABLES Final Result [facility] [address] Department [place] [address] * Hepatitis panel, acute Blood (07/07/2024 1:26 PM CDT) Hep A IgM Nonreactive Nonreactive Comment: Interpretive Data: If Hep A IgM Ab is reported as Equivocal, a new sample should be drawn in two weeks for testing. Current interpretive data was last revised on 19. Hep B core IgM Nonreactive Nonreactive [facility] Comment: Interpretive Data If HepB Core IgM Ab is reported as Equivocal, a new sample should be drawn in two weeks for testing. Current interpretive data was last revised on 19. Hep C Ab Nonreactive Nonreactive [facility] Comment: Interpretive Data Nonreactive: Antibodies [...] last revised on 2019. HepBsAg Nonreactive Nonreactive [facility] Blood 07/07/2024 1:26 PM CDT 07/07/2024 1:38 PM CDT Yuan Anton MD LAB MICROBIOLOGY - GE NERAL ORDERABLES Final Result [facility] [address] Department [place] [address] * Hepatitis B core antibody, total Blood (07/07/2024 1:26 PM CDT) Pathologist [facility] Hep B core IgG/IgM Nonreactive Nonreactive Comment:Testing performed by : [facility], [address], [place]., [address] Blood 07/07/2024 1:26 PM CDT 07/07/2024 4:57 PM CDT Yuan Anton MD LAB MICROBIOLOGY - GE NERAL ORDERABLES Final Result [facility] [address] Department [place] [address] * Vitamin D 25 hydroxy (07/07/2024 1:26 PM CDT) [facility] Vitamin D 25-OH 41 30 - 80 ng/mL Blood 07/07/2024 1:26 PM CDT 07/07/2024 1:38 PM CDT Yuan Anton MD LAB BLOOD ORDERABLES Final Result Performing Organization Address [facility] Co de Phone Number [facility] [address] [place] [address] * Varicella Zoster IgG antibody Blood (07/07/2024 1:26 PM CDT) [facility] VZV IgG Reactive Reactive Comment: Reactive: Results suggest response to immunization or prior exposure to the virus. Testing performed by: [facility], [address] [place] [address]., [id number] Blood 07/07/2024 1:26 PM CDT 07/07/2024 4:57 PM CDT Yuan Anton MD LAB MICROBIOLOGY - GE NERAL ORDERABLES Final Result Performing Organization Address [facility] Co de Phone Number [facility] [address] Department [place] [address] * (ABNORMAL) Comprehensive metabolic panel (07/07/2024 1:26 PM CDT) [facility] Sodium 140 135 - 145 mmol/L Potassium, pl 3.8 3.3 - 4.9 mmol/L [facility] Chloride 101 97 - 110 mmol/L [facility] CO2 25 22 - 32 mmol/L [facility] Anion gap 14 2 - 15 mmol/L [facility] BUN 15 6 - 25 mg/dL [facility] Creatinine 0.59(L) 0.60 - 1.10 mg/dL [facility] Glucose 92 70 - 199 mg/dL [facility] Comment: Interpretive Data Fasting glucose [...] 2022. Calcium 9.7 8.5 - 10.3 mg/dL [facility] Bilirubin, total 0.3 0.1 - 1.2 mg/dL [facility] Protein, pl 8.1 6.5 - 8.5 g/dL [facility] Albumin 4.4 3.5 - 5.0 g/dL [facility] Alk phos 80 40 - 130 Units/L [facility] ALT 19 7 - 45 Units/L [facility] AST 23 10 - 45 Units/L [facility] Blood 07/07/2024 1:26 PM CDT 07/07/2024 1:38 PM CDT us Yuan Anton MD LAB BLOOD ORDERABLES Final Result [facility] [address] Department [place] [address] * ECG 12 lead (07/07/2024 1:10 PM CDT) 07/07/2024 1:08 PM CDT Narrative [facility] - 07/08/2024 10:55 AM CDT Vent Rate: 86 bpm RR Interval: 694 msec IN Interval: 167 msec QRS Duration: 102 msec QT Interval: 374 msec QTC Interval: 417 msec P-R-T [place]: 62 - 26 - 36 degrees IMPRESSION: SINUS RHYTHM INCOMPLETE RIGHT BUNDLE BRANCH BLOCK [90+ ms QRS DURATION, TERMINAL R IN V1/V2, 40+ ms S IN I/aVL/V4/V5/V6] BORDERLINE ECG Electronically Signed By: Moe Martinez MD, [facility] us Yuan Anton MD ECG ORDERABLES Final Result [facility] * Neuro MR Outside Reference (06/03/2024 12:00 AM TRANSPORT ASSISTANT) Narrative RAD_PACS_OUTSIDE_FILM_[facility] - 06/24/2024 9:44 AM CDT This order has been auto-finalized and does not contain a result. us Provider Transcribed Order IMG MRI PROCEDURES Fi nal Result Performing Organization Address City/[facility]/ZIP Co de Phone Number RAD_PACS_OUTSIDE_FILM_[facility] from Last 3 Months Insurance [place] [place] [address] [facility] ACCESS CHO[facility] Care Teams Cash Processing Specialist Relationship Specialty Start Date End Date Nanette Stover DO [address] [place] [address] [address] [place] [address] PCP - General Family Medicine 06/18/24
[2024-07-24 08:33] VITALS: BP 159/90; PULSE 85; RESP 20; TEMP 36.3; O2SAT 99
[2024-07-24] MEDS: LACTATED RINGERS 1,000 ML 150 ML IV CONT (08:53)
--- NOTE | 2024-07-24 09:01 | WPDANESEPPF ---
Anes - Initial Pre Proc Eval Procedure: Operation Date: 07/24/24 09:30 Proposed Procedures p Colonoscopy - Kiko Hernandez MD Date/Time: 07/24/24 09:01 Surgeon: Kiko Hernandez MD Pre Op Diagnosis: hx of colon polyps Patient Data Age: 54 Gender: F Height: 1.63 m Weight: 80.7 kg Last Vital Signs Temp 97.3 F L 07/24/24 08:33 Pulse 85 07/24/24 08:33 Resp 20 07/24/24 08:33 BP 159/90 H 07/24/24 08:33 Pulse Ox 99 07/24/24 08:33 O2 Del Method Room Air 07/24/24 08:33 Allergies Allergy/AdvReac Type Severity Reaction Status Date / Time No Known Allergies Allergy Unknown Verified 07/24/24 08:31 Home Medications ?Medication ?Instructions ?Recorded ?Confirmed ?Type fluticasone fur. 100 mcg-umeclid 1 inh inhalation DAILY 06/24/20 07/24/24 History 62.5 mcg-vilant 25 mcg inhalat.powder (Trelegy Ellipta) acetaminophen 650 mg 650 mg PO Q12H 12/14/21 07/15/24 History tablet,extended release (Tylenol Arthritis Pain) pimecrolimus 1 % topical cream 1 applic topical DAILY 10/05/23 07/24/24 History fluticasone propionate 50 See Rx Instructions .Route 10/11/23 07/24/24 Rx mcg/actuation nasal .COMPLEX #16 grams spray,suspension metoprolol succinate 25 mg 25 mg PO DAILY #90 tabs 02/18/24 07/24/24 Rx tablet,extended release 24 hr atorvastatin 40 mg tablet 40 mg PO DAILY #90 tabs 02/27/24 07/24/24 Rx alprazolam 0.25 mg tablet 0.25 mg PO BID PRN anxiety #60 tabs 05/19/24 07/15/24 Rx lisinopril 5 mg tablet See Rx Instructions .Route 06/16/24 07/24/24 Rx .COMPLEX #90 tabs montelukast 10 mg tablet 10 mg PO DAILY #90 tabs 07/22/24 07/24/24 Rx Patient hx anesthesia problems: none Family hx anesthesia problems: none Results Review: All pre-operative results and documents have been reviewed as part of the pre-operative evaluation. [facility] Past Medical History Medical History (Updated 06/09/24 @ 10:04 by Tona Kincaid MD) Temporomandibular jaw dysfunction Chronic dysfunction of both eustachian tubes Left-sided tinnitus Allergic rhinitis Dysfunction of left eustachian tube Impacted cerumen of right ear History of COVID-04 June 2021 Chronic GERD BMI 29.0-29.9,adult Hypertension Anemia Right knee pain Asthma exacerbation Essential (primary) hypertension Mild persistent asthma, uncomplicated Pure hypercholesterolemia, unspecified Surgical History Surgical History History of placement of ear tubes History of arthroscopy of right knee 1.partial synovectomy/anterior impingement February 2020 2. Right knee arthroscopy with extensive synovectomy, medial femoral condyle abrasion arthroplasty November 29, 2021 History of tonsillectomy H/O: hysterectomy Family History Family History Father Hypertension Family history of elevated blood lipids Social History Social History (Updated 06/09/24 @ 09:17 by Emily Zhao) Social History: Caffeine-coffee/soda Smoking status: Never smoker Alcohol intake: current Drinks per week: 4 Alcohol use details: occasional Substance use: never Substance use type: does not use Lack of Transportation: No Lack of Food: Never True Current Housing: I Have Housing Concerned About Future Housing: No Difficulty Paying Gas/Electric Bills: No Difficulty Paying for Meds: No Currently Unemployed: No Education: Master's Degree or Higher Difficulty w/ Childcare or Family Care: No Living arrangements: with family Occupation/Education: occupation Gender identity (if verbalized by the patient): Female Spiritual care concerns: No Anes - Eval Final PreProcedure Day of Procedure 07/24/24 09:01 Patient weight: obese Heart: regular rate and rhythm Lungs: clear to auscultation Airway: Mallampati scale class II Neurological: alert and oriented Last oral intake: >/= 8 hours ASA classification: III Emergent: no Anesthetic plan: proceed Anesthesia type and monitoring: general GIVS and standard monitoring Results Review: All pre-operative results and documents have been reviewed as part of the pre-operative evaluation. Informed Consent: The patient's anesthetic plan and its attendant risks and benefits were discussed with the patient/family/POA. Questions were solicited and answers provided to the satisfaction of the patient/family/POA.
--- NOTE | 2024-07-24 09:17 | PM.IMHP ---
H&P: HPI History of Present Illness Date/Time: 07/24/24 09:17 Chief Complaint: History of colon polyps Narrative: The patient has a history of colonic polyps, the last colonoscopy was in 2021, she had a 12 mm adenomatous polyp in the transverse colon. Review of Systems Review of Systems: All systems reviewed & are unremarkable except as noted in HPI and below PMFSH Past Medical History Medical History (Updated 06/09/24 @ 10:04 by Tona Kincaid MD) Temporomandibular jaw dysfunction Chronic dysfunction of both eustachian tubes Left-sided tinnitus Allergic rhinitis Dysfunction of left eustachian tube Impacted cerumen of right ear History of COVID-04 June 2021 Chronic GERD BMI 29.0-29.9,adult Hypertension Anemia Right knee pain Asthma exacerbation Essential (primary) hypertension Mild persistent asthma, uncomplicated Pure hypercholesterolemia, unspecified Surgical History Surgical History History of placement of ear tubes History of arthroscopy of right knee 1.partial synovectomy/anterior impingement February 2020 2. Right knee arthroscopy with extensive synovectomy, medial femoral condyle abrasion arthroplasty November 29, 2021 History of tonsillectomy H/O: hysterectomy Family History Family History Father Hypertension Family history of elevated blood lipids Social History Social History (Updated 06/09/24 @ 09:17 by Emily Zhao) Social History: Caffeine-coffee/soda Smoking status: Never smoker Alcohol intake: current Drinks per week: 4 Alcohol use details: occasional Substance use: never Substance use type: does not use Lack of Transportation: No Lack of Food: Never True Current Housing: I Have Housing Concerned About Future Housing: No Difficulty Paying Gas/Electric Bills: No Difficulty Paying for Meds: No Currently Unemployed: No Education: Master's Degree or Higher Difficulty w/ Childcare or Family Care: No Living arrangements: with family Occupation/Education: occupation Gender identity (if verbalized by the patient): Female Spiritual care concerns: No Meds Home Medications and Allergies Home Medications ?Medication ?Instructions ?Recorded ?Confirmed ?Type fluticasone fur. 100 mcg-umeclid 1 inh inhalation DAILY 06/24/20 07/24/24 History 62.5 mcg-vilant 25 mcg inhalat.powder (Trelegy Ellipta) acetaminophen 650 mg 650 mg PO Q12H 12/14/21 07/15/24 History tablet,extended release (Tylenol Arthritis Pain) pimecrolimus 1 % topical cream 1 applic topical DAILY 10/05/23 07/24/24 History fluticasone propionate 50 See Rx Instructions .Route 10/11/23 07/24/24 Rx mcg/actuation nasal .COMPLEX #16 grams spray,suspension metoprolol succinate 25 mg 25 mg PO DAILY #90 tabs 02/18/24 07/24/24 Rx tablet,extended release 24 hr atorvastatin 40 mg tablet 40 mg PO DAILY #90 tabs 02/27/24 07/24/24 Rx alprazolam 0.25 mg tablet 0.25 mg PO BID PRN anxiety #60 tabs 05/19/24 07/15/24 Rx lisinopril 5 mg tablet See Rx Instructions .Route 06/16/24 07/24/24 Rx .COMPLEX #90 tabs montelukast 10 mg tablet 10 mg PO DAILY #90 tabs 07/22/24 07/24/24 Rx Allergies Allergy/AdvReac Type Severity Reaction Status Date / Time No Known Allergies Allergy Unknown Verified 07/24/24 08:31 Vital Signs Vital Signs - 24 hr 07/24/24 08:33 Temperature 97.3 F L Pulse Rate 85 Respiratory Rate 20 Blood Pressure 159/90 H Pulse Oximetry 99 Oxygen Delivery Room Air Exam Const: General: cooperative and healthy appearing Resp: Effort & Inspection: normal respiratory effort and able to speak in complete sentences Auscultation: clear to auscultation bilaterally Cardio: Rate: regular rate Rhythm: regular rhythm GI: Inspection: normal to inspection GI Palp: No No hepatosplenomegaly present Auscultation: normal bowel sounds Rectal Exam: deferred Skin: General skin exam: normal color Psych: Appearance: grossly normal Mental Status: mental status grossly normal Assessment and Plan Assessment and plan (1) Colon polyps: Code(s): K63.5 - Polyp of colon Status: Acute Assessment and Plan: The patient is deemed a good candidate for the procedure. Consent signed. Will proceed.
[2024-07-24 09:43] VITALS: BP 108/60; PULSE 70; RESP 18; O2SAT 100
[2024-07-24 09:53] VITALS: BP 127/67; PULSE 68; RESP 18; O2SAT 100
[2024-07-24 10:03] VITALS: BP 128/77; PULSE 66; RESP 18; O2SAT 100
== END 2024-07-24 10:14 | disposition home or self-care (01) ==
PROVIDERS: PCP Family Medicine; Referring Provider Family Medicine; Visit Provider Internal Medicine Gastroenterology
PROC: 0DJD8ZZ Inspection of Lower Intestinal Tract, Via Natural or Artificial Opening Endoscopic (ICD-10-PCS; CPT 45378; principal; 2024-07-24 09:30)
DX: Z12.11 Encounter for screening for malignant neoplasm of colon (principal); K64.4 Residual hemorrhoidal skin tags; K57.30 Diverticulosis of large intestine without perforation or abscess without bleeding; K21.9 Gastro-esophageal reflux disease without esophagitis; I10 Essential (primary) hypertension; D64.9 Anemia, unspecified; J45.909 Unspecified asthma, uncomplicated; E78.00 Pure hypercholesterolemia, unspecified; H69.83 Other specified disorders of Eustachian tube, bilateral; M26.609 Unspecified temporomandibular joint disorder, unspecified side; E66.9 Obesity, unspecified; Z68.30 Body mass index [BMI] 30.0-30.9, adult; Z79.51 Long term (current) use of inhaled steroids; Z98.890 Other specified postprocedural states; Z86.0100 Personal history of colon polyps, unspecified
CPT/HCPCS: 45378; J2003; J2704; J7120

== ENCOUNTER 2024-08-28 17:51 | Emergency (ER) | payer BC, SELFPAY ==
--- NOTE | ~2024-08-28 | XR_ITS ---
XR chest 1V portable Ordering provider: Luis Armando Kim MD History: 54 years Female with . anxiety . Comparison: March 24, 2019 FINDINGS: MEDIASTINUM: The cardiac silhouette is slightly enlarged. Congestive jarred. LUNGS: No , effusions or pneumothorax. Bilateral interstitial thickening. OTHER: No free air under the diaphragm. IMPRESSION: Cardiomegaly with congestive ajrred. Bilateral interstitial thickening which may indicate pneumonitis versus edema. Clinical correlation a nd follow-up advised. Reviewed, dictated and finalized at location A. IMPRESSION: Cardiomegaly with congestive jarred. Bilateral interstitial thickening which may indicate pneumonitis versus edema. Clinical correlation and follow-up advised.
--- OUTSIDE RECORDS SUMMARY | 2024-08-28 17:53 | XMS_ITS | Referral Summary ---
[facility] Address [address] [place] [address] Care Team Providers Care Biofuels Engineering Manager Name Role Phone Nanette Stover Primary Care Provider [phone]- [phone] Encounters Date Type Department Care Team Description 07/30/2024 2:48 PM CDT - 07/30/2024 11:59 PM CDT Hospital Encounter [facility] - Imaging [address] [place] [address] Multiple sclerosis (HCC) Discharge Disposition: Discharge to home or self care 07/30/2024 2:48 PM CDT - 07/30/2024 11:59 PM CDT Hospital Encounter [facility] - Imaging [facility] [place] [address] Multiple sclerosis (HCC) Discharge Disposition: Discharge to home or self care 07/23/2024 Telephone [facility] [address] [place] [id number] Becky Ladd RPh 07/13/2024 Documentation [facility] [address] [place] [address] Yuan Anton MD 07/07/2024 1:20 PM CDT Lab [facility] Outpatient Lab [address] [place] [address] Vitamin D deficiency; Multiple sclerosis (HCC); Screening for viral disease 07/07/2024 1:00 PM CDT - 07/07/2024 11:59 PM CDT Hospital Encounter [facility] Cardiac Testing [address] [place] [address] Multiple sclerosis (HCC) Discharge Disposition: Discharge to home or self care 07/07/2024 11:00 AM CDT Office Visit [facility] Care [address] [place] [address] Yuan Anton MD Multiple sclerosis (HCC) (Primary Dx); Screening for viral disease; Vitamin D deficiency 06/03/2024 - 06/03/2024 11:59 PM BEER COOLER Hospital Encounter [facility] - Imaging [phone] Discharge Disposition: Discharge to home or self [...] mcg inhaler 1 puff 07/07/2024 Active lisinopriL (PRINIVIL,ZESTR IL) 5 mg tablet Take 1 tablet (5 mg total) by mouth daily 06/16/2024 Active metoprolol XL (TOPROL-XL) 25 mg extended release tablet Take 1 tablet (25 mg total) by mouth daily Active montelukast (SINGULAIR) 10 mg tablet Take 1 tablet (10 mg total) by mouth daily Active Zeposia 0.92 mg capsuleIndicati ons:Multiple sclerosis (HCC) Take 0.92 mg by mouth daily 30 capsule 5 07/28/2024 Active Zeposia Starter Pack, 7-day, 0.23 mg (4)- 0.46 mg (3) capsule,dose packIndications :Multiple sclerosis (HCC) Take 0.23 mg by mouth daily for 4 days, THEN 0.46 mg daily for 3 days. 7 capsule 07/28/2024 5 Active Problems Problem Noted Date Diagnosed Date [...] on file Legal Sex Female 10:59 AM BEER COOLER Gender Identity Not on file Sexual Orientation [...] Procedure Name Priority Date/Time Associated Diagnosis Comments MRI CERVICAL SPINE W WO CONTRAST Routine 07/30/2024 4:18 PM CDT Multiple sclerosis (HCC) MRI THORACIC SPINE W WO CONTRAST Schedule Routine, Read Routine (OP Routine) 07/30/2024 4:18 PM CDT Multiple sclerosis (HCC) REFLEX STRATIFY JCV AB INHIBITION Routine 07/07/2024 [...] CDT Multiple sclerosis (HCC) IMMUNOGLOBULIN PROFILE Routine 07/07/2024 1:26 PM CDT Multiple sclerosis (HCC) TB TEST, QUANTIFERON GOLD Routine 07/07/2024 1:26 PM CDT Multiple sclerosis (HCC) VITAMIN D 25 HYDROXY Routine 07/07/2024 1:26 PM CDT Vitamin D deficiency HEPATITIS B CORE ANTIBODY, TOTAL Routine 07/07/2024 1:26 PM CDT Screening for viral disease HEPATITIS PANEL, ACUTE Routine 07/07/2024 1:26 PM CDT Multiple sclerosis (HCC) VARICELLA ZOSTER ANTIBODY, IGG Routine 07/07/2024 1:26 PM CDT Multiple sclerosis (HCC) ECG 12-LEAD Routine 07/07/2024 1:10 PM CDT Multiple sclerosis (HCC) NEURO MR OUTSIDE REFERENCE Routine 06/03/2024 12:00 AM BEER COOLER from Last 3 Months Results * MRI Cervical Spine W WO Contrast (07/30/2024 4:18 PM CDT) Anatomical Region Laterality Modality Spine N/A Magnetic Resonan ce 07/31/2024 9:50 AM CDT Impressions 07/31/2024 9:50 AM CDT 1. Subtle signal abnormality seen in the dorsal cord at C4-C5 is indeterminate, and possibly artifactual in nature. Further evaluation can be made with a follow-up MRI of the cervical spine with and without contrast. 2. Otherwise no evidence of demyelinating lesions in the cervical or thoracic spine. 3. Nonspecific mildly low-lying bilateral cerebellar tonsils. Electronically signed by: Ritchie Evans M.D. Narrative 07/31/2024 9:50 AM CDT EXAM:MRI CERVICAL SPINE W WO CONTRAST, MRI THORACIC SPINE W WO CONTRAST INDICATION: Radiologically isolated syndrome COMPARISON: Brain MRI 06/03/2024 TECHNIQUE: Demyelinating protocol MRI cervical and thoracic spine with and without contrast performed on a 3 Brittany magnet. CONTRAST: 20 mL Dotarem IV. FINDINGS: CERVICAL SPINE: SPINAL CORD Subtle increased T2 signal in the dorsal cord at C4-C5 seen best on axial GRE images in the sagittal STIR images, but without clear correlate on the sagittal T2 or axial STIR images, indeterminate. Otherwise no suspicious cervical spinal cord lesions are identified. No pathologic enhancement. T2 Hyperintense Lesions: Apparent T2 hyperintensity in the dorsal cord C4-C5 as above. Enhancing Lesions: None. Pre-existing Lesions: No prior images available for comparison. Volume: Normal. SPINE Bones: Straightening of cervical lordosis. No significant listhesis. The facet joints are intact. No loss of vertebral body height. Spinal Canal: Multilevel mild to moderate degenerative changes are seen with early degenerative endplate changes, small osteophytes, and varying degrees of loss of disc most significant C4-C7. Small disc bulges at C4-C7, C5-C6, and eccentric to the left at C6-C7 indent the ventral thecal sac with up to mild central spinal canal narrowing. No high-grade central spinal canal narrowing. Mild multilevel facet and uncovertebral hypertrophy contributes up to moderate right neural foraminal narrowing at C4-C5, on the left at C5-C6 and C6-C7. SOFT TISSUES: No acute abnormality. OTHER: Moderate left greater than right maxillary sinus mucous retention cyst partially imaged. Mildly low-lying bilateral cerebellar tonsils as seen on MRI 06/03/2024, terminating up to 4 mm below the level of the foramen magnum. THORACIC SPINE: SPINAL CORD No convincing thoracic spinal cord signal abnormality. No suspicious enhancement. T2 Hyperintense Lesions: None. Enhancing Lesions: None. Pre-existing Lesions: No prior images available for comparison. Volume: Normal. SPINE Bones: T12 vertebral body hemangioma. No suspicious marrow replacing lesion. Vertebral body height. Spinal Canal: Early degenerative changes seen with subtle degenerative endplate changes, tiny osteophytes, and no more than mild loss of disc. Mild multilevel facet hypertrophy without high-grade neural foraminal narrowing. The thoracic spinal canal is patent. SOFT TISSUES: No acute abnormality. Procedure Note Ritchie Evans MD - 07/31/2024 EXAM:MRI CERVICAL SPINE W WO CONTRAST, MRI THORACIC SPINE W WO CONTRAST INDICATION: Radiologically isolated syndrome COMPARISON: Brain MRI 06/03/2024 TECHNIQUE: Demyelinating protocol MRI cervical and thoracic spine with and without contrast performed on a 3 Brittany magnet. CONTRAST: 20 mL Dotarem IV. FINDINGS: CERVICAL SPINE: SPINAL CORD Subtle increased T2 signal in the dorsal cord at C4-C5 seen best on axial GRE images in the sagittal STIR images, but without clear correlate on the sagittal T2 or axial STIR images, indeterminate. Otherwise no suspicious cervical spinal cord lesions are identified. No pathologic enhancement. T2 Hyperintense Lesions: Apparent T2 hyperintensity in the dorsal cord C4-C5 as above. Enhancing Lesions: None. Pre-existing Lesions: No prior images available for comparison. Volume: Normal. SPINE Bones: Straightening of cervical lordosis. No significant listhesis. The facet joints are intact. No loss of vertebral body height. Spinal Canal: Multilevel mild to moderate degenerative changes are seen with early degenerative endplate changes, small osteophytes, and varying degrees of loss of disc most significant C4-C7. Small disc bulges at C4-C7, C5-C6, and eccentric to the left at C6-C7 indent the ventral thecal sac with up to mild central spinal canal narrowing. No high-grade central spinal canal narrowing. Mild multilevel facet and uncovertebral hypertrophy contributes up to moderate right neural foraminal narrowing at C4-C5, on the left at C5-C6 and C6-C7. SOFT TISSUES: No acute abnormality. OTHER: Moderate left greater than right maxillary sinus mucous retention cyst partially imaged. Mildly low-lying bilateral cerebellar tonsils as seen on MRI 06/03/2024, terminating up to 4 mm below the level of the foramen magnum. THORACIC SPINE: SPINAL CORD No convincing thoracic spinal cord signal abnormality. No suspicious enhancement. T2 Hyperintense Lesions: None. Enhancing Lesions: None. Pre-existing Lesions: No prior images available for comparison. Volume: Normal. SPINE Bones: T12 vertebral body hemangioma. No suspicious marrow replacing lesion. Vertebral body height. Spinal Canal: Early degenerative changes seen with subtle degenerative endplate changes, tiny osteophytes, and no more than mild loss of disc. Mild multilevel facet hypertrophy without high-grade neural foraminal narrowing. The thoracic spinal canal is patent. SOFT TISSUES: No acute abnormality. IMPRESSION: 1. Subtle signal abnormality seen in the dorsal cord at C4-C5 is indeterminate, and possibly artifactual in nature. Further evaluation can be made with a follow-up MRI of the cervical spine with and without contrast. 2. Otherwise no evidence of demyelinating lesions in the cervical or thoracic spine. 3. Nonspecific mildly low-lying bilateral cerebellar tonsils. Electronically signed by: Ritchie Evans M.D. Yuan Anton MD IM MRI PROCEDURES Fi nal Result * MRI Thoracic Spine W WO Contrast (07/30/2024 4:18 PM CDT) Anatomical Region Laterality Modality Spine N/A Magnetic Resonan ce 07/31/2024 9:50 AM CDT Impressions 07/31/2024 9:50 AM CDT 1. Subtle signal abnormality seen in the dorsal cord at C4-C5 is indeterminate, and possibly artifactual in nature. Further evaluation can be made with a follow-up MRI of the cervical spine with and without contrast. 2. Otherwise no evidence of demyelinating lesions in the cervical or thoracic spine. 3. Nonspecific mildly low-lying bilateral cerebellar tonsils. Electronically signed by: Ritchie Evans M.D. Narrative 07/31/2024 9:50 AM CDT EXAM:MRI CERVICAL SPINE W WO CONTRAST, MRI THORACIC SPINE W WO CONTRAST INDICATION: Radiologically isolated syndrome COMPARISON: Brain MRI 06/03/2024 TECHNIQUE: Demyelinating protocol MRI cervical and thoracic spine with and without contrast performed on a 3 Birttany magnet. CONTRAST: 20 mL Dotarem IV. FINDINGS: CERVICAL SPINE: SPINAL CORD Subtle increased T2 signal in the dorsal cord at C4-C5 seen best on axial GRE images in the sagittal STIR images, but without clear correlate on the sagittal T2 or axial STIR images, indeterminate. Otherwise no suspicious cervical spinal cord lesions are identified. No pathologic enhancement. T2 Hyperintense Lesions: Apparent T2 hyperintensity in the dorsal cord C4-C5 as above. Enhancing Lesions: None. Pre-existing Lesions: No prior images available for comparison. Volume: Normal. SPINE Bones: Straightening of cervical lordosis. No significant listhesis. The facet joints are intact. No loss of vertebral body height. Spinal Canal: Multilevel mild to moderate degenerative changes are seen with early degenerative endplate changes, small osteophytes, and varying degrees of loss of disc most significant C4-C7. Small disc bulges at C4-C7, C5-C6, and eccentric to the left at C6-C7 indent the ventral thecal sac with up to mild central spinal canal narrowing. No high-grade central spinal canal narrowing. Mild multilevel facet and uncovertebral hypertrophy contributes up to moderate right neural foraminal narrowing at C4-C5, on the left at C5-C6 and C6-C7. SOFT TISSUES: No acute abnormality. OTHER: Moderate left greater than right maxillary sinus mucous retention cyst partially imaged. Mildly low-lying bilateral cerebellar tonsils as seen on MRI 06/03/2024, terminating up to 4 mm below the level of the foramen magnum. THORACIC SPINE: SPINAL CORD No convincing thoracic spinal cord signal abnormality. No suspicious enhancement. T2 Hyperintense Lesions: None. Enhancing Lesions: None. Pre-existing Lesions: No prior images available for comparison. Volume: Normal. SPINE Bones: T12 vertebral body hemangioma. No suspicious marrow replacing lesion. Vertebral body height. Spinal Canal: Early degenerative changes seen with subtle degenerative endplate changes, tiny osteophytes, and no more than mild loss of disc. Mild multilevel facet hypertrophy without high-grade neural foraminal narrowing. The thoracic spinal canal is patent. SOFT TISSUES: No acute abnormality. Procedure Note Ritchie Evans MD - 07/31/2024 EXAM:MRI CERVICAL SPINE W WO CONTRAST, MRI THORACIC SPINE W WO CONTRAST INDICATION: Radiologically isolated syndrome COMPARISON: Brain MRI 06/03/2024 TECHNIQUE: Demyelinating protocol MRI cervical and thoracic spine with and without contrast performed on a 3 Brittany magnet. CONTRAST: 20 mL Dotarem IV. FINDINGS: CERVICAL SPINE: SPINAL CORD Subtle increased T2 signal in the dorsal cord at C4-C5 seen best on axial GRE images in the sagittal STIR images, but without clear correlate on the sagittal T2 or axial STIR images, indeterminate. Otherwise no suspicious cervical spinal cord lesions are identified. No pathologic enhancement. T2 Hyperintense Lesions: Apparent T2 hyperintensity in the dorsal cord C4-C5 as above. Enhancing Lesions: None. Pre-existing Lesions: No prior images available for comparison. Volume: Normal. SPINE Bones: Straightening of cervical lordosis. No significant listhesis. The facet joints are intact. No loss of vertebral body height. Spinal Canal: Multilevel mild to moderate degenerative changes are seen with early degenerative endplate changes, small osteophytes, and varying degrees of loss of disc most significant C4-C7. Small disc bulges at C4-C7, C5-C6, and eccentric to the left at C6-C7 indent the ventral thecal sac with up to mild central spinal canal narrowing. No high-grade central spinal canal narrowing. Mild multilevel facet and uncovertebral hypertrophy contributes up to moderate right neural foraminal narrowing at C4-C5, on the left at C5-C6 and C6-C7. SOFT TISSUES: No acute abnormality. OTHER: Moderate left greater than right maxillary sinus mucous retention cyst partially imaged. Mildly low-lying bilateral cerebellar tonsils as seen on MRI 06/03/2024, terminating up to 4 mm below the level of the foramen magnum. THORACIC SPINE: SPINAL CORD No convincing thoracic spinal cord signal abnormality. No suspicious enhancement. T2 Hyperintense Lesions: None. Enhancing Lesions: None. Pre-existing Lesions: No prior images available for comparison. Volume: Normal. SPINE Bones: T12 vertebral body hemangioma. No suspicious marrow replacing lesion. Vertebral body height. Spinal Canal: Early degenerative changes seen with subtle degenerative endplate changes, tiny osteophytes, and no more than mild loss of disc. Mild multilevel facet hypertrophy without high-grade neural foraminal narrowing. The thoracic spinal canal is patent. SOFT TISSUES: No acute abnormality. IMPRESSION: 1. Subtle signal abnormality seen in the dorsal cord at C4-C5 is indeterminate, and possibly artifactual in nature. Further evaluation can be made with a follow-up MRI of the cervical spine with and without contrast. 2. Otherwise no evidence of demyelinating lesions in the cervical or thoracic spine. 3. Nonspecific mildly low-lying bilateral cerebellar tonsils. Electronically signed by: Ritchie Evans M.D. Yuan Anton MD IMLv MRI PROCEDURES Fi nal Result * REFLEX STRATIFY JCV AB INHIBITION (07/07/2024 1:26 PM CDT) JCV ab inhibition FINAL RSLT: NEGATIVE [facility] Comment: REFERENCE RANGE: NEGATIVE INTERPRETATION: Positive: Antibodies to JOSE ALEJANDRO virus (JCV) detected indicating the patient has been exposed to JCV at an undetermined time Negative: Antibodies to JCV not detected Test Performed at: [facility] [address] [place] [address] JUAN M CARD MD,PHD,ENA Blood 07/07/2024 1:26 PM CDT 07/07/2024 5:49 PM CDT Yuan Anton MD LAB BLOOD ORDERABLES Final Result Performing Organization Address City/[facility]/ZIP Co de Phone Number [facility] [address] [place] [address] [facility] * Immunoglobulin profile (07/07/2024 1:26 PM CDT) Pathologist [facility] Immunoglobulin G 1,199 700 - 1,600 mg/dL Immunoglobulin A 275 70 - 400 mg/dL [facility] Immunoglobulin M 94 40 - 230 mg/dL [facility] Blood 07/07/2024 1:26 PM CDT 07/07/2024 1:38 PM CDT Yuan Anton MD LAB BLOOD ORDERABLES Final Result Performing Organization Address [facility] de Phone Number [facility] [address] [place] [address] * eGFR (07/07/2024 1:26 PM CDT) Pathologist [facility] eGFR >90 >=60 mL/min/1. 73 m2 Comment: [...] Anton MD LAB BLOOD ORDERABLES Final Result [facility] [address] Department [place] [address] * Differential, auto (07/07/2024 1:26 PM CDT) Neutrophil abs 4.3 1.5 - 6.5 K/cumm Imm gran abs 0.0 0.0 - 0.1 K/cumm [facility] Lymphocyte abs 1.7 0.8 - 3.3 K/cumm [facility] Monocyte abs 0.4 0.2 - 0.8 K/cumm [facility] Eosinophil abs 0.0 0.0 - 0.5 K/cumm [facility] Basophil abs 0.1 0.0 - 0.1 K/cumm [facility] Neutrophil pct 66.2 % [facility] Comment: Interpretive Data Percent cell count reference ranges are not reported, since discordance with absolute values may lead to misinterpretation of CBC data. Current Interpretive Data was last revised on 2017. Imm gran pct 0.3 % [facility] Comment: Interpretive Data Percent cell count reference ranges are not reported, since discordance with absolute values may lead to misinterpretation of CBC data. Current Interpretive Data was last revised on 2017. Lymphocyte pct 26.0 % [facility] Comment: Interpretive Data Percent cell count reference ranges are not reported, since discordance with absolute values may lead to misinterpretation of CBC data. Current Interpretive Data was last revised on 2017. Monocyte pct 6.1 % [facility] Comment: Interpretive Data Percent cell count reference ranges are not reported, since discordance with absolute values may lead to misinterpretation of CBC data. Current Interpretive Data was last revised on 2017. Eosinophil pct 0.6 % [facility] Comment: Interpretive Data Percent cell count reference ranges are not reported, since discordance with absolute values may lead to misinterpretation of CBC data. Current Interpretive Data was last revised on 2017. Basophil pct 0.8 % [facility] Comment: Interpretive Data Percent cell count reference ranges are not reported, since discordance with absolute values may lead to misinterpretation of CBC data. Current Interpretive Data was last revised on 2017. Blood 07/07/2024 1:26 PM CDT 07/07/2024 1:38 PM CDT us Yuan Anton MD LAB BLOOD ORDERABLES Final Result [facility] [address] Department [place] [address] * (ABNORMAL) Stratify JCV(TM) antibody w/ reflex [...] (1) TYSABRI(natalizumab)US Prescribing Information Test Performed at: [facility] [address] [place] [address] JUAN M CARD MD,PHD,ENA JCV Index Value 0.20(H) [facility] Blood 07/07/2024 1:26 PM CDT 07/07/2024 5:49 PM CDT Yuan Anton MD LAB BLOOD ORDERABLES Final Result [facility] [address] Department [place] [address] [facility] * TB test, quantiferon gold (07/07/2024 1:26 PM CDT) [facility] Quantiferon TB Gold Negative Negative [facility] Comment: No interferon-gamma response to M. tuberculosis antigens was detected. Latent infection with M. tuberculosis is unlikely. A single negative result does not exclude infection with M. tuberculosis. In patients at high risk for M.tuberculosis infection, a second test should be considered in accordance with the 2017 ATS/IDSA/CDC Clinical Practice Guidelines for Diagnosis of Tuberculosis in Adults and Children [Lewinsohn DM et. al. Clin. Infect. Dis. 2017;64(2):111-115]. The reference range for the 'TB1 Ag minus Nil Result' and 'TB2 Ag minus Nil Result' is an Interferon-gamma level <0.35 IU/mL. TB-Nil 0.00 IUnits/mL [facility] TB2-Nil 0.03 IUnits/mL [facility] Mitogen-Nil 3.43 IUnits/mL [facility] NIL 0.01 IUnits/mL [facility] Comment: Test Performed by: [address] [address] Technical Stenographer: Cari Mir Ph.D.; CLIA# [id number] Blood 07/07/2024 1:26 PM CDT 07/07/2024 2:14 PM CDT Yuan Anton MD LAB BLOOD ORDERABLES Final Result Performing Organization Address City/[facility] Co de Phone Number [facility] [address] [place] [address] [facility] * CBC with auto differential (07/07/2024 1:26 PM CDT) [facility] WBC 6.4 3.8 - 9.9 K/cumm Hgb 14.0 11.9 - 15.5 g/dL [facility] Hct 42.9 35.6 - 45.5 % [facility] Plt 320 150 - 400 K/cumm [facility] MPV 10.1 9.1 - 12.3 fL [facility] RBC 4.60 3.90 - 5.20 M/cumm [facility] MCV 93.3 81.3 - 96.4 fL [facility] MCH 30.4 27.1 - 33.3 pg [facility] MCHC 32.6 32.3 - 35.7 g/dL [facility] RDW CV 13.2 11.1 - 14.9 % [facility] RDW SD 45.0 35.7 - 48.1 fL [facility] NRBC abs 0.00 0.00 - 0.01 K/cumm [facility] Blood 07/07/2024 1:26 PM CDT 07/07/2024 1:38 PM CDT Yuan Anton MD LAB BLOOD ORDERABLES Final Result Performing Organization Address City/[facility]/ZIP Co de Phone Number [facility] [address] Department [place] [place] [address] * Hepatitis panel, acute Blood (07/07/2024 1:26 PM CDT) [facility] Hep A IgM Nonreactive Nonreactive Comment: Interpretive Data: If Hep A IgM Ab is reported as Equivocal, a new sample should be drawn in two weeks for testing. Current interpretive data was last revised on 19. Hep B core IgM Nonreactive Nonreactive [facility] Comment: Interpretive Data If HepB Core IgM Ab is reported as Equivocal, a new sample should be drawn in two weeks for testing. Current interpretive data was last revised on 19. Hep C Ab Nonreactive Nonreactive [facility] Comment: Interpretive Data Nonreactive: Antibodies to HCV [...] last revised on 2019. HepBsAg Nonreactive Nonreactive [facility] Blood 07/07/2024 1:26 PM CDT 07/07/2024 1:38 PM CDT Yuan Anton MD LAB MICROBIOLOGY - GE NERAL ORDERABLES Final Result Performing Organization Address City/[facility]/ZIP Co de Phone Number [facility] [address] [place] [address] * Hepatitis B core antibody, total Blood (07/07/2024 1:26 PM CDT) Pathologist [facility] Hep B core IgG/IgM Nonreactive Nonreactive Comment:Testing performed by : [facility], [address] [place] [address]., [id number] Blood 07/07/2024 1:26 PM CDT 07/07/2024 4:57 PM CDT Yuan Anton MD LAB MICROBIOLOGY - GE NERAL ORDERABLES Final Result [facility] [address] Department [place] [address] * Vitamin D 25 hydroxy (07/07/2024 1:26 PM CDT) Pathologist [facility] Vitamin D 25-OH 41 30 - 80 ng/mL Blood 07/07/2024 1:26 PM CDT 07/07/2024 1:38 PM CDT Yuan Anton MD LAB BLOOD ORDERABLES Final Result [facility] [address] Department [place] [address] * Varicella Zoster IgG antibody Blood (07/07/2024 1:26 PM CDT) Pathologist [facility] VZV IgG Reactive Reactive Comment: Reactive: Results suggest response to immunization or prior exposure to the virus. Testing performed by: [facility], [address] [place] [address]., [id number] Blood 07/07/2024 1:26 PM CDT 07/07/2024 4:57 PM CDT Yuan Anton MD LAB MICROBIOLOGY - GE NERAL ORDERABLES Final Result Performing Organization Address [facility] Co de Phone Number [facility] [address] Department [place] [address] * (ABNORMAL) Comprehensive metabolic panel (07/07/2024 1:26 PM CDT) [facility] Sodium 140 135 - 145 mmol/L Potassium, pl 3.8 3.3 - 4.9 mmol/L [facility] Chloride 101 97 - 110 mmol/L [facility] CO2 25 22 - 32 mmol/L [facility] Anion gap 14 2 - 15 mmol/L [facility] [id number]|2024-08-28 20:06:30|2024-08-28 20:06:30|ED.ANXIETY||||"HPI - Anxiety General Chief Complaint: Anxiety Stated Complaint: High BP-chest tightness/anxious Time Seen by Provider: 08/28/24 19:17 History of Present Illness HPI narrative: 54-year-old female with a past medical history including chronic hypertension and recently diagnosed with MS starting on a new medication called Merle at the direction by her neurologist. Patient notes that the side effects of this medication to include elevated blood pressure readings and she has been having elevated blood pressure in the 180s region over last few days since Sunday. Her primary care provider is aware this and titrating her lisinopril doses. Currently she is on regimen of metoprolol 25 mg daily and lisinopril 5 mg b.i.d. patient was concerned about her blood pressure home being 180 systolic so she came to the ER. She was not having any chest pain, shortness a breath, nausea, vomiting, vision changes, stroke symptoms such as weakness, syncope or neurological deficits. Patient's blood pressure came down in triage upon arrival from 180 down to 144 systolic just by sitting down the stretcher. Patient is not having any symptoms at this time. Patient endorses feeling very anxious about her blood pressure readings at home and taking her blood pressure cuff measurements serially. Related Data Home Medications Medication Instructions Recorded Confirmed Last Taken Type fluticasone fur. 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 Right knee arthroscopy with extensive synovectomy, medial femoral condyle abrasion arthroplasty November 29, 2021 History of tonsillectomy H/O: hysterectomy Family History Family History Father Hypertension Family history of elevated blood lipids Social History Social History Social History: Caffeine-coffee/soda Smoking status: Never smoker Alcohol intake: current Drinks per week: 4 Alcohol use details: occasional Substance use: never Substance use type: does not use Lack of Transportation: No Lack of Food: Never True Current Housing: I Have Housing Concerned About Future Housing: No Difficulty Paying Gas/Electric Bills: No Difficulty Paying for Meds: No Currently Unemployed: No Education: Master's Degree or Higher Difficulty w/ Childcare or Family Care: No Living arrangements: with family Occupation/Education: occupation Gender identity (if verbalized by the patient): Female Spiritual care concerns: No Exam Narrative: GENERAL: [Well-appearing, well-nourished, and in no acute distress.] HEAD: [Normocephalic, atraumatic.] EYES: [PERRLA and EOMI.] ENT: Nares clear, no rhinorrhea or epistaxis. Mucous membranes moist. NECK: Supple. CHEST: [Clear to auscultation. No respiratory distress.] HEART: [Regular rate and rhythm]. No murmur heard. [Normal peripheral pulses.] ABDOMEN: [Soft, nondistended], [nontender], [No rigidity or guarding] EXTREMITIES: Normal range of motion. [No edema.] SKIN: Warm, dry, no rash. NEURO: [No focal deficits]. Alert and oriented [x3.] PSYCH: Anxious appearing, not any acute distress Course Vital Signs Vital signs: Vital Signs Temperature 37.0 C 08/28/24 18:03 Pulse Rate 84 08/28/24 18:03 Respiratory Rate 19 08/28/24 18:03 Blood Pressure 180/99 H 08/28/24 18:03 Pulse Oximetry 100 08/28/24 18:03 Oxygen Delivery Room Air 08/28/24 18:03 Temperature 36.6 C 08/28/24 18:28 Pulse Rate 72 08/28/24 19:24 Respiratory Rate 12 08/28/24 19:24 Blood Pressure 144/86 H 08/28/24 19:24 Pulse Oximetry 99 08/28/24 19:24 Oxygen Delivery Room Air 08/28/24 18:03 MDM - Anxiety MDM Narrative Medical decision making narrative: 54-year-old female with history of hypertension and recently diagnosed with MS. Patient recently started Zeposia which has been known to raise blood pressures according to her and her neurologist. Her blood pressures have been high in the 180s to 190s at home and she was concerned about these elevations. Her primary care provider is aware and recently titrating her lisinopril dose to match the blood pressure elevations. Patient was feeling a sensation of pressure in her head and chest earlier today when her blood pressure for high but now her symptoms are resolved and her blood pressures come down to 144/86 without any intervention. Patient has no signs or symptoms of any neurological deficits on examination, she has no complaints at this time and vital signs are normal. No tachycardia, fever, hypoxia. Given her blood pressure elevations with her medication changes recently considerations are for medication side effect, anxiety, asymptomatic hypertension and very unlikely hypertensive crisis or urgency. She has no headache or neurological complaints at this time does not need advanced CT images of the head but will evaluate for any signs of end-organ dysfunction with laboratory studies such as a CBC, CMP, troponin, EKG and chest x-ray. Patient was counseled on asymptomatic hypertension and management strategies with her primary care provider unless there is any acute concern workup today. Patient agreeable to the plan. Patient re-evaluated frequently and remained asymptomatic during my reassessments. She states that she is feeling better and already reached after doctor to make an appointment tomorrow. No chest pain, trouble breathing, headache or any symptoms at this time. Her workup is largely unremarkable including a negative troponin and negative BNP. No signs of leukocytosis or anemia. Normal platelet count. Chemistry panel shows normal renal function, normal electrolytes and LFTs. Patient's chest x-ray was independently reviewed and also interpreted by Radiology and there is some cardiomegaly with congested jarred with no recent chest x-ray to compare to. I discussed this with the patient and she was not aware of any cardiomegaly but currently not having any symptoms and negative cardiac markers which is a good sign that this is probably from longstanding hypertension rather than in the acute process. Patient felt comfortable with going home at this time and calling her doctor in the morning for repeat follow-up appointments and management for blood pressure medicines. Patient was given very strict return precautions which she verbalized understanding and was sent home at this time. Medical Records Attestation: I reviewed the patient's medical records. Lab Data Attestation: I reviewed the patient's lab results. 08/28/24 20:17 08/28/24 20:06 Labs: Lab Results 08/28/24 08/28/24 Range/Units 20:06 20:17 WBC 5.6 (4.5-10.0) K/mm3 RBC 4.63 (4.2-5.4) M/mm3 Hgb 14.0 (12.0-15.0) g/dL Hct 44.4 (37.0-47.0) % MCV 95.9 (80-100) fl MCH 30.2 (26-34) pg MCHC 31.5 L (32-36) g/dl RDW 13.1 (11.5-14.5) % Plt Count 269 (150-375) k/mm3 MPV 10.4 (7.4-10.4) fl Immature Gran % (Auto) 0.2 (0-0.5) % Neut % (Auto) 77.2 H (45.5-73.1) % Lymph % (Auto) 9.3 L (18.3-44.2) % Edwards % (Auto) 12.1 H (2.6-8.5) % Eos % (Auto) 0.7 (0-4.4) % Baso % (Auto) 0.5 (0.2-1.2) % Lymph # (Auto) 0.52 L (0.9-3.2) K/mm3 Edwards # (Auto) 0.7 H (0.1-0.6) K/mm3 Eos # (Auto) 0.0 (0-0.3) K/mm3 Baso # (Auto) 0.0 (0.0-0.1) K/mm3 Abs Immat Gran (auto) 0.01 (0.00-0.031) K/mm3 Absolute Neuts (auto) 4.3 (1.3-6.7) K/mm3 Absolute Nucleated RBC 0.000 (0.0-0.012) K/mm3 Nucleated RBC % 0.0 (0.0-0.2) % Sodium 140 (137-145) mmol/L Potassium 4.9 (3.4-5.0) mmol/L Chloride 103 (98-107) mmol/L Carbon Dioxide 25 (22-30) mmol/L Anion Gap 12 (4-12) mmol/L BUN 15 (7-17) mg/dL Creatinine 0.57 L (0.7-1.0) mg/dL Estim Creat Clear Calc 100 ml/min Estimated GFR > 60 (59 - ) Glucose 98 (65-110) mg/dL Calcium 9.0 (8.4-10.2) mg/dL Magnesium 2.3 (1.6-2.3) mg/dL Total Bilirubin 0.7 (0.2-1.3) mg/dL AST 36 (14-36) U/L ALT 27 (6-35) U/L Alkaline Phosphatase 76 (38-126) U/L Troponin I < 0.012 (0.000-0.034) ng/mL NT-Pro-B Natriuret Pep 22 (19.9-100) pg/mL Total Protein 8.0 (6.3-8.2) g/dL Albumin 4.7 (3.5-5.1) g/dL Imaging Data Attestation: I personally reviewed and interpreted this imaging study as follows: My impression: Impressions Chest X-Ray 08/28/24 19:54 IMPRESSION: Cardiomegaly with congestive jarred. Bilateral interstitial thickening which may indicate pneumonitis versus edema. Clinical correlation and follow-up advised. ECG Data EKG #1: Attestation: I personally reviewed and interpreted this ECG as follows: ECG completion date: 08/28/24 ECG completion time: 18:15 Prior ECG tracings: not available for review Interpretation: No ST segment elevations, depressions or ectopy. QTC 438, NM interval 158, QRS 96. Sinus rhythm. No previous EKG for comparison. Discharge Plan Discharge Clinical Impression: Asymptomatic hypertension, Cardiomegaly Patient Disposition: Home Condition: Stable Instructions: Antibiotic Form, Hypertension (ED) Additional Instructions: All of your laboratory studies and cardiac markers are undetectable in normal which is a good sign but your chest x-ray does have some cardiac enlargement which is likely a sign of chronic hypertension. Bring this to the attention of your primary care provider. Return with any chest pain, shortness a breath, neurological complaints or any concerning symptoms. Maintain your current blood pressure regimen until talking to your doctor. Patient Language: Turkmen Prescriptions: No Action Trelegy Ellipta 100-62.5-25 mcg blister with device 1 inh inhalation DAILY acetaminophen [Tylenol Arthritis Pain] 650 mg tablet extended release 650 mg PO Q12H pimecrolimus 1 % cream 1 applic topical DAILY fluticasone propionate 50 mcg/actuation spray,suspension See Rx Instructions .ROUTE .COMPLEX Qty: 16 5RF Dose Instruction: USE 1 SPRAY IN EACH NOSTRIL DAILY Rx Instructions: USE 1 SPRAY IN EACH NOSTRIL DAILY atorvastatin 40 mg tablet 40 mg PO DAILY Qty: 90 1RF alprazolam 0.25 mg tablet 0.25 mg PO BID PRN (Reason: anxiety) Qty: 60 3RF lisinopril 5 mg tablet See Rx Instructions .ROUTE .COMPLEX Qty: 90 1RF Dose Instruction: Take 1 tablet by mouth once daily Rx Instructions: Take 1 tablet by mouth once daily montelukast 10 mg tablet 10 mg PO DAILY Qty: 90 1RF metoprolol succinate 25 mg tablet extended release 24 hr See Rx Instructions .ROUTE .COMPLEX Qty: 90 1RF Dose Instruction: TAKE 1 TABLET BY MOUTH DAILY Rx Instructions: TAKE 1 TABLET BY MOUTH DAILY Follow-up/Referrals: Nanette Stover DO [Primary Care Provider] - Time of Disposition: 21:10"
--- OUTSIDE RECORDS SUMMARY | 2024-08-28 17:53 | XMS_ITS | Clinical Summary ---
Author Organization [facility] [employer] Address [address] [place] [address] Care Team Providers Care Integration Technician Name Role Phone Alexis Thomas MD Primary Care Provider [phone] Source Comments [facility] [employer],non-owned Affiliates and Associated Physician Practices is amultiple site organization consisting of ambulatory clinics and hospital sitesin [place], [place], [place] and [place]. This disclosure is being madepursuant to the Care Everywhere program and may not contain all information available regarding this patient. Last updated 18.[employer] Allergies No known active allergies Medications * Be aware that medications may not be up to date on this document. Alwaysverify current medications with the patient. INCRUSE ELLIPTA 62.5 MCG/INH inhaler Inhale 1 [...] T PO D 02/26/2019 Active albuterol HFA (PROVENTIL;CHETNA JACOB;PROAIR) 108 (90 Base) MCG/ACT inhaler INL 2 PFS PO Q 4 H PRN 09/24/2018 Active guaiFENesin ER 12hr (MUCINEX) 600 MG tablet Take 1 tablet by mouth every 12 hours 60 tablet 2 03/27/2019 Active fluticasone-billy nterol (BREO ELLIPTA) 200-25 MCG/INH inhaler Inhale 1 [...] Frequency of Binge Drinking Less than monthly Comments Unknown Sex and Gender Information Value Date Recorded Sex Assigned at Not on file Legal Sex Female 1:12 PM [employer] Gender Identity Not on file Sexual Orientation Not on file Last Filed Vital Signs Vital Sign Reading Time Taken Comments Blood Pressure 138/91 04/23/2019 1:56 PM [employer] Pulse 78 04/23/2019 1:56 PM [employer]CH[employer] Temperature - - Respiratory Rate - - Oxygen Saturation 97% 04/23/2019 1:56 PM [employer] Inhaled Oxygen Concentration - - Weight 80.3 kg (177 lb) 04/23/2019 1:56 PM [employer]CH[employer] Height 163.8 cm (5' 4.5 ) 04/23/2019 1:56 PM [employer] Body Mass Index 29.91 04/23/2019 1:56 PM [employer] Plan of Treatment Health Maintenance Due Date Last Done Comments COLOGUARD (AGES 45-75) - COL ON CA SCREENING 1971 COLON MONITORING 1971 COLONOSCOPY - COLON CA SCREENING 1971 CT COLONOGRAPHY - COLON CA SCREENING 1971 Colorectal Cancer Screening 1971 FIT - COLON CA SCREENING 1971 FLEX SIG - COLON CA SCREENING 1971 MAMMOGRAM 1971 HIV SCREENING 1986 HEPATITIS C SCREENING [...] on patient's age to complete this topic Insurance RAFAEL RAFAEL Care Teams Integration Technician Relationship Specialty Start Date End Date Alexis Thomas MD [address] [place] [address] PCP - General Family Medicine 03/27/19
--- OUTSIDE RECORDS SUMMARY | 2024-08-28 17:53 | XMS_ITS | Clinical Summary ---
Author Organization [facility] B Address [address] [address] Care Team Providers Care Resistor Testing Machine Operator Name Role Phone Nanette Stover DO Primary Care Provider [phone] Allergies No known active allergies Medications albuterol [...] - 07/30/2024 11:59 PM CDT Hospital Encounter [facility] [address] [place] [address] Multiple sclerosis (HCC) Discharge Disposition: Discharge to home or self care 07/30/2024 2:48 PM CDT - 07/30/2024 11:59 PM CDT Hospital Encounter [facility] [address] [place] [phone] Multiple sclerosis (HCC) Discharge Disposition: Discharge to home or self care 07/23/2024 Telephone [facility] [address] [place] [address] Becky Ladd RPh 07/13/2024 Documentation [facility] [address] [place] [address] [address] [place] [address] Yuan Anton MD 07/07/2024 1:20 PM CDT Lab [facility] Outpatient Lab [facility] [place] [address] Vitamin D deficiency; Multiple sclerosis (HCC); Screening for viral disease 07/07/2024 1:00 PM CDT - 07/07/2024 11:59 PM CDT Hospital Encounter [facility] Cardiac Testing [address] [place] [address] Multiple sclerosis (HCC) Discharge Disposition: Discharge to home or self care 07/07/2024 11:00 AM CDT Office Visit [facility] [address] [place] [address] [address] [place] [address] Yuan Anton MD Multiple sclerosis (HCC) (Primary Dx); Screening for viral disease; Vitamin D deficiency 06/03/2024 - 06/03/2024 11:59 PM [employer] Hospital Encounter [facility] [phone] Discharge Disposition: Discharge to home or self [...] on file Legal Sex Female 10:59 AM [employer] Gender Identity Not on file Sexual Orientation [...] MR OUTSIDE REFERENCE Routine 06/03/2024 12:00 AM [employer] from Last 3 Months Results * MRI [...] IMLv MRI PROCEDURES Fi nal Result * MRI [...] by: Ritchie Evans M.D. Yuan Anton MD IMG MRI PROCEDURES Fi nal Result * REFLEX STRATIFY JCV AB INHIBITION (07/07/2024 1:26 PM CDT) Pathologist [facility] JCV ab inhibition FINAL RSLT: NEGATIVE [facility] Comment: REFERENCE RANGE: NEGATIVE INTERPRETATION: Positive: Antibodies to JOSE ALEJANDRO virus (JCV) detected indicating the patient has been exposed to JCV at an undetermined time Negative: Antibodies to JCV not detected Test Performed at: [email or web address] [address] [place] [address] JUAN M CARD MD,PHD,ENA Blood 07/07/2024 1:26 PM CDT 07/07/2024 5:49 PM CDT Yuan Anton MD LAB BLOOD ORDERABLES Final Result [facility] [address] Department [place] [address] [facility] * Immunoglobulin profile (07/07/2024 1:26 PM CDT) Pathologist [facility] Immunoglobulin G 1,199 700 - 1,600 mg/dL Immunoglobulin A 275 70 - 400 mg/dL [facility] Immunoglobulin M 94 40 - 230 mg/dL [facility] Blood 07/07/2024 1:26 PM CDT 07/07/2024 1:38 PM CDT Yuan Anton MD LAB BLOOD ORDERABLES Final Result Performing Organization Address City/[facility] Co de Phone Number [facility] [address] [place] [address] * eGFR (07/07/2024 1:26 PM CDT) eGFR >90 >=60 mL/min/1. 73 m2 Comment: [...] BLOOD ORDERABLES Final Result Performing Organization Address [facility]/ZIP Co de Phone Number [facility] [address] Department [place] [address] * Differential, auto (07/07/2024 1:26 PM CDT) Pathologist [facility] Neutrophil abs 4.3 1.5 - 6.5 K/cumm Imm gran abs 0.0 0.0 - 0.1 K/cumm [facility] Lymphocyte abs 1.7 0.8 - 3.3 K/cumm [facility] Monocyte abs 0.4 0.2 - 0.8 K/cumm [facility] Eosinophil abs 0.0 0.0 - 0.5 K/cumm [facility] Basophil abs 0.1 0.0 - 0.1 K/cumm [facility] Neutrophil pct 66.2 % [facility] Comment: Interpretive Data Percent cell count reference ranges are not reported, since discordance with absolute values may lead to misinterpretation of CBC data. Current Interpretive Data was last revised on 2017. Imm gran pct 0.3 % [facility] Comment: Interpretive Data Percent cell count reference ranges are not reported, since discordance with absolute values may lead to misinterpretation of CBC data. Current Interpretive Data was last revised on 2017. Lymphocyte pct 26.0 % [facility] Comment: Interpretive Data Percent cell count reference ranges are not reported, since discordance with absolute values may lead to misinterpretation of CBC data. Current Interpretive Data was last revised on 2017. Monocyte pct 6.1 % [facility] Comment: Interpretive Data Percent cell count reference ranges are not reported, since discordance with absolute values may lead to misinterpretation of CBC data. Current Interpretive Data was last revised on 2017. Eosinophil pct 0.6 % [facility] Comment: Interpretive Data Percent cell count reference ranges are not reported, since discordance with absolute values may lead to misinterpretation of CBC data. Current Interpretive Data was last revised on 2017. Basophil pct 0.8 % [facility] Comment: Interpretive Data Percent cell count reference ranges are not reported, since discordance with absolute values may lead to misinterpretation of CBC data. Current Interpretive Data was last revised on 2017. Blood 07/07/2024 1:26 PM CDT 07/07/2024 1:38 PM CDT us Yuan Anton MD LAB BLOOD ORDERABLES Final Result [facility] [address] Department [place] [address] * (ABNORMAL) Stratify JCV(TM) antibody w/ reflex (07/07/2024 1:26 PM CDT) [facility] JCV Antibody INDETERMI ABBIE(A) [facility] Comment: See [...] (1) TYSABRI(natalizumab)US Prescribing Information Test Performed at: [email or web address]/[facility] [address] [place] [address] JUAN M CARD MD,PHD,ENA JCV Index Value 0.20(H) [facility] Blood 07/07/2024 1:26 PM CDT 07/07/2024 5:49 PM CDT us Yuan Anton MD LAB BLOOD ORDERABLES Final Result [facility] [address] Department [place] [address] [facility] * TB test, quantiferon gold (07/07/2024 1:26 PM CDT) [facility] Quantiferon TB Gold Negative Negative [facility] Comment: No interferon-gamma response to [...] Interferon-gamma level <0.35 IU/mL. TB-Nil 0.00 IUnits/mL [facility] TB2-Nil 0.03 IUnits/mL [facility] Mitogen-Nil 3.43 IUnits/mL [facility] NIL 0.01 IUnits/mL [facility] Comment: Test Performed by: [facility] [place] [id number] Scale Tester: Cari Mir Ph.D.; CLIA# [id number] Blood 07/07/2024 1:26 PM CDT 07/07/2024 2:14 PM CDT us Yuan Anton MD LAB BLOOD ORDERABLES Final Result [facility] [address] Department [place] [address] [facility] * CBC with auto differential (07/07/2024 1:26 PM CDT) WBC 6.4 3.8 - 9.9 K/cumm Hgb 14.0 11.9 - 15.5 g/dL [facility] Hct 42.9 35.6 - 45.5 % [facility] Plt 320 150 - 400 K/cumm [facility] MPV 10.1 9.1 - 12.3 fL [facility] RBC 4.60 3.90 - 5.20 M/cumm [facility] MCV 93.3 81.3 - 96.4 fL [facility] MCH 30.4 27.1 - 33.3 pg [facility] MCHC 32.6 32.3 - 35.7 g/dL [facility] RDW CV 13.2 11.1 - 14.9 % [facility] RDW SD 45.0 35.7 - 48.1 fL [facility] NRBC abs 0.00 0.00 - 0.01 K/cumm [facility] Blood 07/07/2024 1:26 PM CDT 07/07/2024 1:38 PM CDT Yuan Anton MD LAB BLOOD ORDERABLES Final Result Performing Organization Address [facility] Co de Phone Number [facility] [address] [place] [address] * Hepatitis panel, acute Blood (07/07/2024 1:26 PM CDT) Hep A IgM Nonreactive Nonreactive Comment: Interpretive Data: If Hep A IgM Ab is reported as Equivocal, a new sample should be drawn in two weeks for testing. Current interpretive data was last revised on 19. Hep B core IgM Nonreactive Nonreactive [facility] Comment: Interpretive Data If HepB Core IgM Ab is reported as Equivocal, a new sample should be drawn in two weeks for testing. Current interpretive data was last revised on 19. Hep C Ab Nonreactive Nonreactive [facility] Comment: Interpretive Data Nonreactive: Antibodies [...] last revised on 2019. HepBsAg Nonreactive Nonreactive [facility] Blood 07/07/2024 1:26 PM CDT 07/07/2024 1:38 PM CDT Yuan Anton MD LAB MICROBIOLOGY - GE NERAL ORDERABLES Final Result Performing Organization Address City/[facility]/ZIP Co de Phone Number [facility] [address] [place] [address] * Hepatitis B core antibody, total Blood (07/07/2024 1:26 PM CDT) [facility] Hep B core IgG/IgM Nonreactive Nonreactive Comment:Testing performed by : [facility], [address] [place]., [address] Blood 07/07/2024 1:26 PM CDT 07/07/2024 4:57 PM CDT Yuan Anton MD LAB MICROBIOLOGY - GE NERAL ORDERABLES Final Result [facility] [address] Department [place] [address] * Vitamin D 25 hydroxy (07/07/2024 1:26 PM CDT) [facility] Vitamin D 25-OH 41 30 - 80 ng/mL Blood 07/07/2024 1:26 PM CDT 07/07/2024 1:38 PM CDT Yuan Anton MD LAB BLOOD ORDERABLES Final Result [facility] [address] Department [place] [address] * Varicella Zoster IgG antibody Blood (07/07/2024 1:26 PM CDT) [facility] VZV IgG Reactive Reactive Comment: Reactive: Results suggest response to immunization or prior exposure to the virus. Testing performed by: [facility], [address], [place]., [address] Specimen (Source) Anatomical Location / Laterality [id number]|2024-08-28 19:39:00|2024-08-28 19:39:00|XMS_ITS|ZACH PRESCOTT|External Medical Summaries|[id number]|" Clinical Summary Created on: August 28, 2024 Silvana Tineo : 1970 Sex: Female Author Organization [facility] Address [address] [place] [address] Care Team Providers Care Resistor Testing Machine Operator Name Role Phone Alexis Thomas MD Primary Care Provider [phone] Source Comments [facility],non-owned Affiliates and Associated Physician Practices is amultiple site organization consisting of ambulatory clinics and hospital sitesin [place], [place], [place] and [place]. This disclosure is being madepursuant to the Care Everywhere program and may not contain all information available regarding this patient. Last updated 18.[facility] Allergies No known active allergies Medications * [...] on file Legal Sex Female 1:12 PM [employer] Gender Identity Not on file Sexual Orientation Not on file Last Filed Vital Signs Vital Sign Reading Time Taken Comments Blood Pressure 138/91 04/23/2019 1:56 PM [employer] Pulse 78 04/23/2019 1:56 PM [employer] Temperature - - Respiratory Rate - - Oxygen Saturation 97% 04/23/2019 1:56 PM [employer] Inhaled Oxygen Concentration - - Weight 80.3 kg (177 lb) 04/23/2019 1:56 PM [employer] Height 163.8 cm (5' 4.5 ) 04/23/2019 1:56 PM [employer] Body Mass Index 29.91 04/23/2019 1:56 PM [employer] Plan of Treatment Health Maintenance Due Date [...] to complete this topic Insurance RAFAEL RAFAEL Member Subscriber Plan / Payer (Ef fective 2014-Present) Name:Silvana Tineo Relation to Subscriber:Self Name:SILVANA TINEO Payer ID:[id number] (IC) Type:PPO Address: [facility] [address] [place] [id number] Care Teams Resistor Testing Machine Operator Relationship Specialty Start Date End Date Alexis Thomas MD [address] [place] [address] PCP - General Family Medicine 03/27/19 "
[2024-08-28 18:03] VITALS: BP 180/99; PULSE 84; RESP 19; TEMP 37; O2SAT 100
--- NOTE | 2024-08-28 18:10 | ECG_ITS ---
Test Date: 2024-08-28 18:15:18 Measurements Intervals [place] Rate: 80 P: 36 ME: 158 QRS: -4 QRSD: 96 T: 10 QT: 379 QTc: 438 Interpretive Statements SINUS RHYTHM INCOMPLETE RIGHT BUNDLE BRANCH BLOCK [90+ ms QRS DURATION, TERMINAL R IN V1/V2, 40+ ms S IN I/aVL/V4/V5/V6] NONSPECIFIC T-WAVE ABNORMALITY ABNORMAL ECG No previous ECG available for comparison Electronically Signed On 08-29-2024 09:50:41 CDT by Aniceto Rizzo M.D.
[2024-08-28 18:28] VITALS: BP 157/98; PULSE 80; RESP 16; TEMP 36.6; O2SAT 99
--- NOTE | 2024-08-28 19:23 | PC.NURSE ---
Assumed care of patient at 1915.
[2024-08-28 19:24] VITALS: BP 144/86; PULSE 72; RESP 12; O2SAT 99
--- OUTSIDE RECORDS SUMMARY | 2024-08-28 19:40 | XMS_ITS | Referral Summary ---
[facility] Address [address] [address] Care Team Providers Care Vault Mechanic Name Role Phone Nanette Stover Primary Care Provider [phone]- [phone] Encounters Date Type Department Care Team Description 07/30/2024 2:48 PM CDT - 07/30/2024 11:59 PM CDT Hospital Encounter [facility] - Imaging [address] [place] [address] Multiple sclerosis (HCC) Discharge Disposition: Discharge to home or self care 07/30/2024 2:48 PM CDT - 07/30/2024 11:59 PM CDT Hospital Encounter [facility] - Imaging [facility] [place] [address] Multiple sclerosis (HCC) Discharge Disposition: Discharge to home or self care 07/23/2024 Telephone [facility] [address] [place] [address] Becky Ladd RPh 07/13/2024 Documentation [facility] [address] [place] [address] Yuan Anton MD 07/07/2024 1:20 PM CDT Lab [facility] Outpatient Lab [address] [place] [address] Vitamin D deficiency; Multiple sclerosis (HCC); Screening for viral disease 07/07/2024 1:00 PM CDT - 07/07/2024 11:59 PM CDT Hospital Encounter [facility] Cardiac Testing [address] [facility] [address] [place] [address] Multiple sclerosis (HCC) Discharge Disposition: Discharge to home or self care 07/07/2024 11:00 AM CDT Office Visit [facility] [address] [place] [address] Yuan Anton MD Multiple sclerosis (HCC) (Primary Dx); Screening for viral disease; Vitamin D deficiency 06/03/2024 - 06/03/2024 11:59 PM SEO ASSOCIATE Hospital Encounter [facility] - Imaging [phone] Discharge Disposition: Discharge to home or self [...] on file Legal Sex Female 10:59 AM SEO ASSOCIATE Gender Identity Not on file Sexual Orientation [...] MR OUTSIDE REFERENCE Routine 06/03/2024 12:00 AM SEO ASSOCIATE from Last 3 Months Results * MRI [...] to JCV not detected Test Performed at: [facility] [address] [place] [address] JUAN M CARD MD,PHD,ENA Blood 07/07/2024 1:26 PM CDT 07/07/2024 5:49 PM CDT Yuan Anton MD LAB BLOOD ORDERABLES Final Result Performing Organization Address City/[facility]/ZIP Co de Phone Number [facility] [address] [place] [address] [facility] * Immunoglobulin profile (07/07/2024 1:26 PM CDT) Pathologist [facility] Immunoglobulin G 1,199 700 - 1,600 mg/dL Immunoglobulin A 275 70 - 400 mg/dL [facility] Immunoglobulin M 94 40 - 230 mg/dL [facility] Blood 07/07/2024 1:26 PM CDT 07/07/2024 1:38 PM CDT Yuan Anton MD LAB BLOOD ORDERABLES Final Result Performing Organization Address [facility] de Phone Number [facility] [address] [place] [address] * eGFR (07/07/2024 1:26 PM CDT) Pathologist [facility] eGFR >90 >=60 mL/min/1. 73 m2 Comment: [...] Anton MD LAB BLOOD ORDERABLES Final Result [facility] [address] Department [place] [address] * Differential, auto (07/07/2024 1:26 PM CDT) Neutrophil abs 4.3 1.5 - 6.5 K/cumm Imm gran abs 0.0 0.0 - 0.1 K/cumm [facility] Lymphocyte abs 1.7 0.8 - 3.3 K/cumm [facility] Monocyte abs 0.4 0.2 - 0.8 K/cumm [facility] Eosinophil abs 0.0 0.0 - 0.5 K/cumm [facility] Basophil abs 0.1 0.0 - 0.1 K/cumm [facility] Neutrophil pct 66.2 % [facility] Comment: Interpretive Data Percent cell count reference ranges are not reported, since discordance with absolute values may lead to misinterpretation of CBC data. Current Interpretive Data was last revised on 2017. Imm gran pct 0.3 % [facility] Comment: Interpretive Data Percent cell count reference ranges are not reported, since discordance with absolute values may lead to misinterpretation of CBC data. Current Interpretive Data was last revised on 2017. Lymphocyte pct 26.0 % [facility] Comment: Interpretive Data Percent cell count reference ranges are not reported, since discordance with absolute values may lead to misinterpretation of CBC data. Current Interpretive Data was last revised on 2017. Monocyte pct 6.1 % [facility] Comment: Interpretive Data Percent cell count reference ranges are not reported, since discordance with absolute values may lead to misinterpretation of CBC data. Current Interpretive Data was last revised on 2017. Eosinophil pct 0.6 % [facility] Comment: Interpretive Data Percent cell count reference ranges are not reported, since discordance with absolute values may lead to misinterpretation of CBC data. Current Interpretive Data was last revised on 2017. Basophil pct 0.8 % [facility] Comment: Interpretive Data Percent cell count reference ranges are not reported, since discordance with absolute values may lead to misinterpretation of CBC data. Current Interpretive Data was last revised on 2017. Blood 07/07/2024 1:26 PM CDT 07/07/2024 1:38 PM CDT us Yuan Anton MD LAB BLOOD ORDERABLES Final Result [facility] [address] Department [place] [address] * (ABNORMAL) Stratify JCV(TM) antibody w/ reflex [...] (1) TYSABRI(natalizumab)US Prescribing Information Test Performed at: [facility] [address] [place] [address] JUAN M CARD MD,PHD,ENA JCV Index Value 0.20(H) [facility] Blood 07/07/2024 1:26 PM CDT 07/07/2024 5:49 PM CDT Yuan Anton MD LAB BLOOD ORDERABLES Final Result [facility] [address] Department [place] [address] [facility] * TB test, quantiferon gold (07/07/2024 1:26 PM CDT) [facility] Quantiferon TB Gold Negative Negative [facility] Comment: No interferon-gamma response to [...] Interferon-gamma level <0.35 IU/mL. TB-Nil 0.00 IUnits/mL [facility] TB2-Nil 0.03 IUnits/mL [facility] Mitogen-Nil 3.43 IUnits/mL [facility] NIL 0.01 IUnits/mL [facility] Comment: Test Performed by: [address] [address] Recruitment Specialist: Cari Mir Ph.D.; CLIA# [id number] Blood 07/07/2024 1:26 PM CDT 07/07/2024 2:14 PM CDT Yuan Anton MD LAB BLOOD ORDERABLES Final Result Performing Organization Address City/[facility] Co de Phone Number [facility] [address] [place] [address] [facility] * CBC with auto differential (07/07/2024 1:26 PM CDT) [facility] WBC 6.4 3.8 - 9.9 K/cumm Hgb 14.0 11.9 - 15.5 g/dL [facility] Hct 42.9 35.6 - 45.5 % [facility] Plt 320 150 - 400 K/cumm [facility] MPV 10.1 9.1 - 12.3 fL [facility] RBC 4.60 3.90 - 5.20 M/cumm [facility] MCV 93.3 81.3 - 96.4 fL [facility] MCH 30.4 27.1 - 33.3 pg [facility] MCHC 32.6 32.3 - 35.7 g/dL [facility] RDW CV 13.2 11.1 - 14.9 % [facility] RDW SD 45.0 35.7 - 48.1 fL [facility] NRBC abs 0.00 0.00 - 0.01 K/cumm [facility] Blood 07/07/2024 1:26 PM CDT 07/07/2024 1:38 PM CDT Yuan Anton MD LAB BLOOD ORDERABLES Final Result Performing Organization Address City/[facility]/ZIP Co de Phone Number [facility] [address] [place] [address] * Hepatitis panel, acute Blood (07/07/2024 1:26 PM CDT) [facility] Hep A IgM Nonreactive Nonreactive Comment: Interpretive Data: If Hep A IgM Ab is reported as Equivocal, a new sample should be drawn in two weeks for testing. Current interpretive data was last revised on 19. Hep B core IgM Nonreactive Nonreactive [facility] Comment: Interpretive Data If HepB Core IgM Ab is reported as Equivocal, a new sample should be drawn in two weeks for testing. Current interpretive data was last revised on 19. Hep C Ab Nonreactive Nonreactive [facility] Comment: Interpretive Data Nonreactive: Antibodies [...] last revised on 2019. HepBsAg Nonreactive Nonreactive [facility] Blood 07/07/2024 1:26 PM CDT 07/07/2024 1:38 PM CDT Yuan Anton MD LAB MICROBIOLOGY - GE NERAL ORDERABLES Final Result Performing Organization Address City/[facility]/ZIP Co de Phone Number [facility] [address] [place] [address] * Hepatitis B core antibody, total Blood (07/07/2024 1:26 PM CDT) Pathologist [facility] Hep B core IgG/IgM Nonreactive Nonreactive Comment:Testing performed by : [facility], [address] [place] [address]., [id number] Blood 07/07/2024 1:26 PM CDT 07/07/2024 4:57 PM CDT Yuan Anton MD LAB MICROBIOLOGY - GE NERAL ORDERABLES Final Result [facility] [address] [place] [address] * Vitamin D 25 hydroxy (07/07/2024 1:26 PM CDT) Pathologist [facility] Vitamin D 25-OH 41 30 - 80 ng/mL Blood 07/07/2024 1:26 PM CDT 07/07/2024 1:38 PM CDT Yuan Anton MD LAB BLOOD ORDERABLES Final Result Performing Organization Address City/[facility]/ZIP Co de Phone Number [facility] [address] Department [place] [address] * Varicella Zoster IgG antibody Blood (07/07/2024 1:26 PM CDT) Pathologist [facility] VZV IgG Reactive Reactive Comment: Reactive: Results suggest response to immunization or prior exposure to the virus. Testing performed by: [facility], [address] [place] [address]., [id number] Blood 07/07/2024 1:26 PM CDT 07/07/2024 4:57 PM CDT Yuan Anton MD LAB MICROBIOLOGY - GE NERAL ORDERABLES Final Result Performing Organization Address [facility] Co de Phone Number [facility] [address] Department [place] [address] * (ABNORMAL) Comprehensive metabolic panel (07/07/2024 1:26 PM CDT) [facility] Sodium 140 135 - 145 mmol/L Potassium, pl 3.8 3.3 - 4.9 mmol/L [facility] Chloride 101 97 - 110 mmol/L [facility] CO2 25 22 - 32 mmol/L [facility] Anion gap 14 2 - 15 mmol/L [facility] [id number]|2024-08-28 19:40:00|2024-08-28 19:39:00|XMS_ITS|ZACH PRESCOTT|External Medical Summaries|[id number]|" Clinical Summary Created on: August 28, 2024 Silvana Tineo : 1970 Sex: Female Author Organization [id number] Address [address] [address] Care Team Providers Care Vault Mechanic Name Role Phone Nanette Stover Primary Care Provider +1- [phone] Allergies No known active allergies Medications albuterol [...] daily for 3 days. 7 capsule 07/28/2024 Active Problems Problem Noted Date Diagnosed Date [...] - 07/30/2024 11:59 PM CDT Hospital Encounter [facility] - Imaging [address] [place] [address] Multiple sclerosis (HCC) Discharge Disposition: Discharge to home or self care 07/30/2024 2:48 PM CDT - 07/30/2024 11:59 PM CDT Hospital Encounter [facility] - Imaging [address] [place] [address] Multiple sclerosis (HCC) Discharge Disposition: Discharge to home or self care 07/23/2024 Telephone [facility] [address] [place] [address] Becky Ladd [facility] 07/13/2024 Documentation [facility] for [facility] [address] [place] [address] [address], [place] [id number] Yuan Anton MD 07/07/2024 1:20 PM CDT Lab [facility] Outpatient Lab [address] [place] [address] Vitamin D deficiency; Multiple sclerosis (HCC); Screening for viral disease 07/07/2024 1:00 PM CDT - 07/07/2024 11:59 PM CDT Hospital Encounter [facility] Cardiac Testing [address] [place] [address] Multiple sclerosis (HCC) Discharge Disposition: Discharge to home or self care 07/07/2024 11:00 AM CDT [facility] Visit [facility] [address] [place] [address] Yuan Anton MD Multiple sclerosis (HCC) (Primary Dx); Screening for viral disease; Vitamin D deficiency 06/03/2024 - 06/03/2024 11:59 PM SEO ASSOCIATE Hospital Encounter [facility] - Imaging [phone] Discharge Disposition: Discharge to home or self [...] on file Legal Sex Female 10:59 AM SEO ASSOCIATE Gender Identity Not on file Sexual Orientation [...] Vaccine (1 of 2) 2021 Covid-19 Vaccine ( - 2023-2 5 season) 2023 03/04/2023, 03/01/2022, [...] MR OUTSIDE REFERENCE Routine 06/03/2024 12:00 AM SEO ASSOCIATE from Last 3 Months Results * MRI [...] abnormality. Procedure Note Ritchie Evans MD - 04/17/2025 EXAM:MRI CERVICAL SPINE W WO CONTRAST, MRI [...] JCV AB INHIBITION (07/07/2024 1:26 PM CDT) [facility] JCV ab inhibition FINAL RSLT: NEGATIVE [facility] Comment: REFERENCE RANGE: NEGATIVE INTERPRETATION: Positive: Antibodies to JOSE ALEJANDRO virus (JCV) detected indicating the patient has been exposed to JCV at an undetermined time Negative: Antibodies to JCV not detected Test Performed at: [facility] [address] [place] [address] JUAN M CARD MD,PHD,ENA Blood 07/07/2024 1:26 PM CDT 07/07/2024 5:49 PM CDT Yuan Anton MD LAB BLOOD ORDERABLES Final Result [facility] [address] [place] [address] [facility] * Immunoglobulin profile (07/07/2024 1:26 PM CDT) [facility] Immunoglobulin G 1,199 700 - 1,600 mg/dL Immunoglobulin A 275 70 - 400 mg/dL [facility] Immunoglobulin M 94 40 - 230 mg/dL [facility] Blood 07/07/2024 1:26 PM CDT 07/07/2024 1:38 PM CDT Yuan Anton MD LAB BLOOD ORDERABLES Final Result [facility] [address] Department [employer] [place], [place] [id number] * eGFR (07/07/2024 1:26 PM CDT) Pathologist [facility] eGFR >90 >=60 mL/min/1. 73 m2 Comment: [...] Anton MD LAB BLOOD ORDERABLES Final Result [facility] [address] Department [place] [address] * Differential, auto (07/07/2024 1:26 PM CDT) [facility] Neutrophil abs 4.3 1.5 - 6.5 K/cumm Imm gran abs 0.0 0.0 - 0.1 K/cumm [facility] Lymphocyte abs 1.7 0.8 - 3.3 K/cumm [facility] Monocyte abs 0.4 0.2 - 0.8 K/cumm [facility] Eosinophil abs 0.0 0.0 - 0.5 K/cumm [facility] Basophil abs 0.1 0.0 - 0.1 K/cumm [facility] Neutrophil pct 66.2 % [facility] Comment: Interpretive Data Percent cell count reference ranges are not reported, since discordance with absolute values may lead to misinterpretation of CBC data. Current Interpretive Data was last revised on 2017. Imm gran pct 0.3 % [facility] Comment: Interpretive Data Percent cell count reference ranges are not reported, since discordance with absolute values may lead to misinterpretation of CBC data. Current Interpretive Data was last revised on 2017. Lymphocyte pct 26.0 % [facility] Comment: Interpretive Data Percent cell count reference ranges are not reported, since discordance with absolute values may lead to misinterpretation of CBC data. Current Interpretive Data was last revised on 2017. Monocyte pct 6.1 % [facility] Comment: Interpretive Data Percent cell count reference ranges are not reported, since discordance with absolute values may lead to misinterpretation of CBC data. Current Interpretive Data was last revised on 2017. Eosinophil pct 0.6 % [facility] Comment: Interpretive Data Percent cell count reference ranges are not reported, since discordance with absolute values may lead to misinterpretation of CBC data. Current Interpretive Data was last revised on 2017. Basophil pct 0.8 % [facility] Comment: Interpretive Data Percent cell count reference ranges are not reported, since discordance with absolute values may lead to misinterpretation of CBC data. Current Interpretive Data was last revised on 2017. Blood 07/07/2024 1:26 PM CDT 07/07/2024 1:38 PM CDT Yuan Anton MD LAB BLOOD ORDERABLES [facility] [address] Department of Laboratories [place], [place] [id number] * (ABNORMAL) Stratify JCV(TM) antibody w/ reflex [...] (1) TYSABRI(natalizumab)US Prescribing Information Test Performed at: [facility] [address] [place] [address] JUAN M CARD MD,PHD,[facility] JCV Index Value 0.20(H) [facility] Blood 07/07/2024 1:26 PM CDT 07/07/2024 5:49 PM CDT Yuan Anton MD LAB BLOOD ORDERABLES Final Result [facility] [address] Department [place] [address] [facility] * TB test, quantiferon gold (07/07/2024 1:26 PM CDT) [facility] Quantiferon TB Gold Negative Negative [facility] Comment: No interferon-gamma response to M. tuberculosis antigens was detected. Latent infection with M. tuberculosis is unlikely. A single negative result does not exclude infection with M. tuberculosis. In patients at high risk for M.tuberculosis infection, a second test should be considered in accordance with the 2017 ATS/IDSA/CDC Clinical Practice Guidelines for Diagnosis of Tuberculosis in Adults and Children [Jeroinsvitan DM et. al. Clin. Infect. Dis. 2017;64(2):111-115]. The reference range for the 'TB1 Ag minus Nil Result' and 'TB2 Ag minus Nil Result' is an Interferon-gamma level <0.35 IU/mL. TB-Nil 0.00 IUnits/mL [facility] TB2-Nil 0.03 IUnits/mL [facility] Mitogen-Nil 3.43 IUnits/mL [facility] NIL 0.01 IUnits/mL [facility] Comment: Test Performed by: [facility] [address] [place] [address] Recruitment Specialist: Cari Mir Ph.D.; CLIA# [id number] Blood 07/07/2024 1:26 PM CDT 07/07/2024 2:14 PM CDT us Yuan Anton MD LAB BLOOD ORDERABLES Final Result [facility] [address] Department [place] [address] [facility] * CBC with auto differential (07/07/2024 1:26 PM CDT) WBC 6.4 3.8 - 9.9 K/cumm Hgb 14.0 11.9 - 15.5 g/dL [facility] Hct 42.9 35.6 - 45.5 % [facility] Plt 320 150 - 400 K/cumm [facility] MPV 10.1 9.1 - 12.3 fL [facility] RBC 4.60 3.90 - 5.20 M/cumm [facility] MCV 93.3 81.3 - 96.4 fL [facility] MCH 30.4 27.1 - 33.3 pg [facility] MCHC 32.6 32.3 - 35.7 g/dL [facility] RDW CV 13.2 11.1 - 14.9 % [facility] RDW SD 45.0 35.7 - 48.1 fL [facility] NRBC abs 0.00 0.00 - 0.01 K/cumm [facility] Blood 07/07/2024 1:26 PM CDT 07/07/2024 1:38 PM CDT Yuan Anton MD LAB BLOOD ORDERABLES Final Result Performing Organization Address [facility] Co de Phone Number [facility] [address] [place] [address] * Hepatitis panel, acute Blood (07/07/2024 1:26 PM CDT) Pathologist [facility] Hep A IgM Nonreactive Nonreactive Comment: Interpretive Data: If Hep A IgM Ab is reported as Equivocal, a new sample should be drawn in two weeks for testing. Current interpretive data was last revised on 19. Hep B core IgM Nonreactive Nonreactive [facility] Comment: Interpretive Data If HepB Core IgM Ab is reported as Equivocal, a new sample should be drawn in two weeks for testing. Current interpretive data was last revised on 19. Hep C Ab Nonreactive Nonreactive [facility] Comment: Interpretive Data Nonreactive: Antibodies [...] last revised on 2019. HepBsAg Nonreactive Nonreactive [facility] Blood 07/07/2024 1:26 PM CDT 07/07/2024 1:38 PM CDT Yuan Anton MD LAB MICROBIOLOGY - GE NERAL ORDERABLES Final Result Performing Organization Address City/[facility]/ZIP Co de Phone Number [facility] [address] [place] [address] * Hepatitis B core antibody, total Blood (07/07/2024 1:26 PM CDT) Pathologist [facility] Hep B core IgG/IgM Nonreactive Nonreactive Comment:Testing performed by : [facility], [address] [place]., [address] Blood 07/07/2024 1:26 PM CDT 07/07/2024 4:57 PM CDT Yuan Anton MD LAB MICROBIOLOGY - GE NERAL ORDERABLES Final Result [facility] [address] [place] [address] * Vitamin D 25 hydroxy (07/07/2024 1:26 PM CDT) Pathologist [facility] Vitamin D 25-OH 41 30 - 80 ng/mL Blood 07/07/2024 1:26 PM CDT 07/07/2024 1:38 PM CDT Yuan Anton MD LAB BLOOD ORDERABLES Final Result Performing Organization Address City/[facility] Co de Phone Number [facility] [address] [place] [address] * Varicella Zoster IgG antibody Blood (07/07/2024 1:26 PM CDT) Pathologist [facility] VZV IgG Reactive Reactive Comment: Reactive: Results suggest response to immunization or prior exposure to the virus. Testing performed by: [facility], [address], [place]., [address] Specimen (Source) Anatomical Location / Laterality
--- NOTE | 2024-08-28 20:06 | ED_ITS ---
HPI - Anxiety General Chief Complaint: Anxiety Stated Complaint: High BP-chest tightness/anxious Time Seen by Provider: 08/28/24 19:17 History of Present Illness HPI narrative: 54-year-old female with a past medical history including chronic hypertension and recently diagnosed with MS starting on a new medication called Zeposia at the direction by her neurologist. Patient notes that the side effects of this medication to include elevated blood pressure readings and she has been having elevated blood pressure in the 180s region over last few days since Sunday. Her primary care provider is aware this and titrating her lisinopril doses. Currently she is on regimen of metoprolol 25 mg daily and lisinopril 5 mg b.i.d. patient was concerned about her blood pressure home being 180 systolic so she came to the ER. She was not having any chest pain, shortness a breath, nausea, vomiting, vision changes, stroke symptoms such as weakness, syncope or neurological deficits. Patient's blood pressure came down in triage upon arrival from 180 down to 144 systolic just by sitting down the stretcher. Patient is not having any symptoms at this time. Patient endorses feeling very anxious about her blood pressure readings at home and taking her blood pressure cuff measurements serially. Related Data Home Medications Medication Instructions Recorded Confirmed Last Taken Type fluticasone fur. 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 Right knee arthroscopy with extensive synovectomy, medial femoral condyle abrasion arthroplasty November 29, 2021 History of tonsillectomy H/O: hysterectomy Family History Family History Father Hypertension Family history of elevated blood lipids Social History Social History Social History: Caffeine-coffee/soda Smoking status: Never smoker Alcohol intake: current Drinks per week: 4 Alcohol use details: occasional Substance use: never Substance use type: does not use Lack of Transportation: No Lack of Food: Never True Current Housing: I Have Housing Concerned About Future Housing: No Difficulty Paying Gas/Electric Bills: No Difficulty Paying for Meds: No Currently Unemployed: No Education: Master's Degree or Higher Difficulty w/ Childcare or Family Care: No Living arrangements: with family Occupation/Education: occupation Gender identity (if verbalized by the patient): Female Spiritual care concerns: No Exam 2 Narrative: GENERAL: [Well-appearing, well-nourished, and in no acute distress.] HEAD: [Normocephalic, atraumatic.] EYES: [PERRLA and EOMI.] ENT: Nares clear, no rhinorrhea or epistaxis. Mucous membranes moist. NECK: Supple. CHEST: [Clear to auscultation. No respiratory distress.] HEART: [Regular rate and rhythm]. No murmur heard. [Normal peripheral pulses.] ABDOMEN: [Soft, nondistended], [nontender], [No rigidity or guarding] EXTREMITIES: Normal range of motion. [No edema.] SKIN: Warm, dry, no rash. NEURO: [No focal deficits]. Alert and oriented [x3.] PSYCH: Anxious appearing, not any acute distress Course Vital Signs Vital signs: Vital Signs Temperature 37.0 C 08/28/24 18:03 Pulse Rate 84 05/15/25 18:03 Respiratory Rate 19 08/28/24 18:03 Blood Pressure 180/99 H 08/28/24 18:03 Pulse Oximetry 100 08/28/24 18:03 Oxygen Delivery Room Air 08/28/24 18:03 Temperature 36.6 C 08/28/24 18:28 Pulse Rate 72 08/28/24 19:24 Respiratory Rate 12 08/28/24 19:24 Blood Pressure 144/86 H 08/28/24 19:24 Pulse Oximetry 99 08/28/24 19:24 Oxygen Delivery Room Air 08/28/24 18:03 MDM - Anxiety MDM Narrative Medical decision making narrative: 54-year-old female with history of hypertension and recently diagnosed with MS. Patient recently started Zeposia which has been known to raise blood pressures according to her and her neurologist. Her blood pressures have been high in the 180s to 190s at home and she was concerned about these elevations. Her primary care provider is aware and recently titrating her lisinopril dose to match the blood pressure elevations. Patient was feeling a sensation of pressure in her head and chest earlier today when her blood pressure for high but now her symptoms are resolved and her blood pressures come down to 144/86 without any intervention. Patient has no signs or symptoms of any neurological deficits on examination, she has no complaints at this time and vital signs are normal. No tachycardia, fever, hypoxia. Given her blood pressure elevations with her medication changes recently considerations are for medication side effect, anxiety, asymptomatic hypertension and very unlikely hypertensive crisis or urgency. She has no headache or neurological complaints at this time does not need advanced CT images of the head but will evaluate for any signs of end-organ dysfunction with laboratory studies such as a CBC, CMP, troponin, EKG and chest x-ray. Patient was counseled on asymptomatic hypertension and management strategies with her primary care provider unless there is any acute concern workup today. Patient agreeable to the plan. Patient re-evaluated frequently and remained asymptomatic during my reassessments. She states that she is feeling better and already reached after doctor to make an appointment tomorrow. No chest pain, trouble breathing, headache or any symptoms at this time. Her workup is largely unremarkable including a negative troponin and negative BNP. No signs of leukocytosis or anemia. Normal platelet count. Chemistry panel shows normal renal function, normal electrolytes and LFTs. Patient's chest x-ray was independently reviewed and also interpreted by Radiology and there is some cardiomegaly with congested jarred with no recent chest x-ray to compare to. I discussed this with the patient and she was not aware of any cardiomegaly but currently not having any symptoms and negative cardiac markers which is a good sign that this is probably from longstanding hypertension rather than in the acute process. Patient felt comfortable with going home at this time and calling her doctor in the morning for repeat follow-up appointments and management for blood pressure medicines. Patient was given very strict return precautions which she verbalized understanding and was sent home at this time. Medical Records Attestation: I reviewed the patient's medical records. Lab Data Attestation: I reviewed the patient's lab results. 08/28/24 20:17 08/28/24 20:06 Labs: Lab Results 08/28/24 08/28/24 Range/Units 20:06 20:17 WBC 5.6 (4.5-10.0) K/mm3 RBC 4.63 (4.2-5.4) M/mm3 Hgb 14.0 (12.0-15.0) g/dL Hct 44.4 (37.0-47.0) % MCV 95.9 (80-100) fl MCH 30.2 (26-34) pg MCHC 31.5 L (32-36) g/dl RDW 13.1 (11.5-14.5) % Plt Count 269 (150-375) k/mm3 MPV 10.4 (7.4-10.4) fl Immature Gran % (Auto) 0.2 (0-0.5) % Neut % (Auto) 77.2 H (45.5-73.1) % Lymph % (Auto) 9.3 L (18.3-44.2) % Rankin % (Auto) 12.1 H (2.6-8.5) % Eos % (Auto) 0.7 (0-4.4) % Baso % (Auto) 0.5 (0.2-1.2) % Lymph # (Auto) 0.52 L (0.9-3.2) K/mm3 Rankin # (Auto) 0.7 H (0.1-0.6) K/mm3 Eos # (Auto) 0.0 (0-0.3) K/mm3 Baso # (Auto) 0.0 (0.0-0.1) K/mm3 Abs Immat Gran (auto) 0.01 (0.00-0.031) K/mm3 Absolute Neuts (auto) 4.3 (1.3-6.7) K/mm3 Absolute Nucleated RBC 0.000 (0.0-0.012) K/mm3 Nucleated RBC % 0.0 (0.0-0.2) % Sodium 140 (137-145) mmol/L Potassium 4.9 (3.4-5.0) mmol/L Chloride 103 (98-107) mmol/L Carbon Dioxide 25 (22-30) mmol/L Anion Gap 12 (4-12) mmol/L BUN 15 (7-17) mg/dL Creatinine 0.57 L (0.7-1.0) mg/dL Estim Creat Clear Calc 100 ml/min Estimated GFR > 60 (59 - ) Glucose 98 (65-110) mg/dL Calcium 9.0 (8.4-10.2) mg/dL Magnesium 2.3 (1.6-2.3) mg/dL Total Bilirubin 0.7 (0.2-1.3) mg/dL AST 36 (14-36) U/L ALT 27 (6-35) U/L Alkaline Phosphatase 76 (38-126) U/L Troponin I < 0.012 (0.000-0.034) ng/mL NT-Pro-B Natriuret Pep 22 (19.9-100) pg/mL Total Protein 8.0 (6.3-8.2) g/dL Albumin 4.7 (3.5-5.1) g/dL Imaging Data Attestation: I personally reviewed and interpreted this imaging study as follows: My impression: Impressions Chest X-Ray 08/28/24 19:54 IMPRESSION: Cardiomegaly with congestive jarred. Bilateral interstitial thickening which may indicate pneumonitis versus edema. Clinical correlation and follow-up advised. ECG Data EKG #1: Attestation: I personally reviewed and interpreted this ECG as follows: ECG completion date: 08/28/24 ECG completion time: 18:15 Prior ECG tracings: not available for review Interpretation: No ST segment elevations, depressions or ectopy. QTC 438, OK interval 158, QRS 96. Sinus rhythm. No previous EKG for comparison. Discharge Plan Discharge Clinical Impression: Asymptomatic hypertension, Cardiomegaly Patient Disposition: Home Condition: Stable Instructions: Antibiotic Form, Hypertension (ED) Additional Instructions: All of your laboratory studies and cardiac markers are undetectable in normal which is a good sign but your chest x-ray does have some cardiac enlargement which is likely a sign of chronic hypertension. Bring this to the attention of your primary care provider. Return with any chest pain, shortness a breath, neurological complaints or any concerning symptoms. Maintain your current blood pressure regimen until talking to your doctor. Patient Language: Frisian Prescriptions: No Action Trelegy Ellipta 100-62.5-25 mcg blister with device 1 inh inhalation DAILY acetaminophen [Tylenol Arthritis Pain] 650 mg tablet extended release 650 mg PO Q12H pimecrolimus 1 % cream 1 applic topical DAILY fluticasone propionate 50 mcg/actuation spray,suspension See Rx Instructions .ROUTE .COMPLEX Qty: 16 5RF Dose Instruction: USE 1 SPRAY IN EACH NOSTRIL DAILY Rx Instructions: USE 1 SPRAY IN EACH NOSTRIL DAILY atorvastatin 40 mg tablet 40 mg PO DAILY Qty: 90 1RF alprazolam 0.25 mg tablet 0.25 mg PO BID PRN (Reason: anxiety) Qty: 60 3RF lisinopril 5 mg tablet See Rx Instructions .ROUTE .COMPLEX Qty: 90 1RF Dose Instruction: Take 1 tablet by mouth once daily Rx Instructions: Take 1 tablet by mouth once daily montelukast 10 mg tablet 10 mg PO DAILY Qty: 90 1RF metoprolol succinate 25 mg tablet extended release 24 hr See Rx Instructions .ROUTE .COMPLEX Qty: 90 1RF Dose Instruction: TAKE 1 TABLET BY MOUTH DAILY Rx Instructions: TAKE 1 TABLET BY MOUTH DAILY Follow-up/Referrals: Nanette Stover DO [Primary Care Provider] - Time of Disposition: 21:10
[2024-08-28 20:22] LABS: Basophils Percent Auto 0.5 % (0.2-1.2); Eosinophils Percent Auto 0.7 % (0-4.4); Hematocrit 44.4 % (37.0-47.0); Immature Granulocyte Absolute 0.01 K/mm3 (0.00-0.031); Immature Granulocyte Percent A 0.2 % (0-0.5); Lymphocytes Absolute Auto 0.52 K/mm3 (0.9-3.2); Lymphocytes Percent Auto 9.3 % (18.3-44.2); Mean Corpuscular HGB Conc 31.5 g/dl (32-36); Mean Corpuscular Hemoglobin 30.2 pg (26-34); Mean Corpuscular Volume 95.9 fl (80-100); Mean Platelet Volume 10.4 fl (7.4-10.4); Monocytes Absolute Auto 0.7 K/mm3 (0.1-0.6); Monocytes Percent Auto 12.1 % (2.6-8.5); Neutrophils Absolute Auto 4.3 K/mm3 (1.3-6.7); Neutrophils Percent Auto 77.2 % (45.5-73.1); Platelet Count Result 269 k/mm3 (150-375); Red Blood Count 4.63 M/mm3 (4.2-5.4); Red Cell Distribution Width 13.1 % (11.5-14.5); White Blood Count 5.6 K/mm3 (4.5-10.0)
[2024-08-28 20:27] LABS: Alanine Aminotransferase 27 U/L (6-35); Albumin Level 4.7 g/dL (3.5-5.1); Alkaline Phosphatase 76 U/L (38-126); Anion Gap 12 mmol/L (4-12); Aspartate Amino Transferase 36 U/L (14-36); Bilirubin,Total 0.7 mg/dL (0.2-1.3); Blood Urea Nitrogen 15 mg/dL (7-17); Carbon Dioxide 25 mmol/L (22-30); Chloride 103 mmol/L (98-107); Estimated CRCL calculation 100 ml/min; Estimated Glomerular Filt Rate > 60; Glucose 98 mg/dL (65-110); Magnesium 2.3 mg/dL (1.6-2.3); Potassium 4.9 mmol/L (3.4-5.0); Sodium 140 mmol/L (137-145)
[2024-08-28 20:37] LABS: NT Pro B Type Natriuretic Pept 22 pg/mL (19.9-100); Troponin I < 0.012 ng/mL (0.000-0.034)
== END 2024-08-28 21:30 | disposition home or self-care (01) ==
PROVIDERS: Emergency Provider Student in an Organized Health Care Education/Training Program; PCP Family Medicine
DX: I10 Essential (primary) hypertension (principal); I51.7 Cardiomegaly; G35 Multiple sclerosis; Z79.899 Other long term (current) drug therapy
CPT/HCPCS: 36415; 71045; 80053; 83735; 83880; 84484; 85025; 93005; 99284

== ENCOUNTER 2025-01-20 10:27 | Outpatient (CLI) | payer BC, SELFPAY ==
[2025-01-20 15:58] LABS: Influenza A QL RT-PCR Negative (Negative); Influenza B QL RT-PCR Negative (Negative); RSV RNA, RT-PCR Negative (Negative); SARS-CoV-2 RNA PCR Positive (Negative)
== END 2025-01-20 10:28 | disposition home or self-care (01) ==
LOC: ANHGOSHLAB 10:28
PROVIDERS: PCP Family Medicine; Visit Provider Nurse Practitioner Family
DX: U07.1 COVID-19 (principal)
CPT/HCPCS: 87637

== ENCOUNTER 2025-03-17 08:05 | Outpatient (CLI) | payer BC, SELFPAY ==
--- NOTE | ~2025-03-17 | MM_ITS ---
EXAMINATION: MM screening megan BI w randa HISTORY: Screening. TECHNIQUE: Craniocaudal and mediolateral oblique 3-D tomosynthesis images were obtained and synthetic 2-D images were generated. CAD analysis was submitted and interpreted. COMPARISON: 2023 and 2022 BREAST PARENCHYMAL COMPOSITION: Dense: The breasts are heterogeneously dense FINDINGS: No suspicious masses are seen. There are no suspicious calcifications. No unexplained architectural distortion is seen. There are no skin or nipple abnormalities identified. There is no adenopathy seen on the images submitted. IMPRESSION: No mammographic evidence to suggest malignancy is seen. The patient may return to screening mammography as per ACR guidelines. BI-RADS 1 - Negative. Reviewed, dictated and finalized at location B. 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
--- OUTSIDE RECORDS SUMMARY | 2025-03-17 08:08 | XMS_ITS | Clinical Summary ---
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 This disclosure is being madepursuant to the Care Everywhere program and may not contain all information available regarding this patient. Last updated 18.[employer] [email or web address] Allergies No known active allergies Medications * [...] on file Legal Sex Female 1:12 PM INSURANCE CHECKER Gender Identity Not on file Sexual Orientation Not on file Last Filed Vital Signs Vital Sign Reading Time Taken Comments Blood Pressure 138/91 04/23/2019 1:56 PM INSURANCE CHECKER Pulse 78 04/23/2019 1:56 PM INSURANCE CHECKER Temperature - - Respiratory Rate - - Oxygen Saturation 97% 04/23/2019 1:56 PM INSURANCE CHECKER Inhaled Oxygen Concentration - - Weight 80.3 kg (177 lb) 04/23/2019 1:56 PM INSURANCE CHECKER Height 163.8 cm (5' 4.5) 04/23/2019 1:56 PM INSURANCE CHECKER Body Mass Index 29.91 04/23/2019 1:56 PM INSURANCE CHECKER Plan of Treatment Health Maintenance Due Date [...] of 3 - 19+ 3-dose series) 1990 PAP SMEAR 02/15/1992 Cervical Cancer Screening 2001 PAP with HPV 2001 SCREENING FOR DIABETES 03/27/2019 PNEUMOCOCCAL VACCINE 50+ (1 of 1 - PCV) 2021 ZOSTER VACCINE (1 of 2) 2021 DEPRESSION SCREENING 04/16/2024 COVID-19 VACCINE (1 - 2024-2 6 season) 2024 INFLUENZA VACCINE (#1) 2024 HIB VACCINE Aged Out No longer [...] this topic Insurance RAFAEL RAFAEL Care Teams Cup Trimming Machine Operator Relationship Specialty Start Date End Date Alexis Thomas MD [address] [place] [id number] PCP - General Family Medicine 03/27/19
--- OUTSIDE RECORDS SUMMARY | 2025-03-17 08:08 | XMS_ITS | Clinical Summary ---
[facility] Address [address] [place] [address] Care Team Providers Care Barrel Plater Name Role Phone TonyjoniNanette paige Primary Care Provider [phone] Allergies No known active allergies Medications albuterol [...] 100-62.5-25 mcg inhaler 1 puff 07/07/2024 Active metoprolol XL (TOPROL-XL) 25 mg extended release tablet Take 1 tablet (25 mg total) by mouth daily Active montelukast (SINGULAIR) 10 mg tablet Take 1 tablet (10 mg total) by mouth daily Active lisinopriL (PRINIVIL,ZESTRI L) 10 mg tablet Take 1 tablet (10 mg total) by mouth 2 (two) times a day 08/30/2024 Active Vumerity 231 mg capsule,delayed release(DR/EC)In dications:Multip le sclerosis Take 462 mg by mouth 2 (two) times a day 120 capsule 5 10/27/2024 Active Active Problems Problem Noted Date Diagnosed Date Multiple sclerosis 07/07/2024 Assessment & Plan (01/27/2025 12:51 PM CDT): The patient is presenting for follow up of multiple sclerosis. Since our last visit, she has transitioned from Zeposia to Vumerity due to a concern that Zeposia was contributing to high blood pressure. She is tolerating Vumerity well without notable side effects. She reports some GI symptoms when she takes Vumerity on an empty stomach but otherwise reports no clear side effects. She reports no new neurological symptoms and specifically reports no new weakness, numbness, or vision changes. She currently has COVID and developed symptoms a little more than one week ago. She was treated with Paxlovid and reports that her symptoms have largely resolved although she continues to have a cough and some congestion. She continues to have mild knowing bilateral upper extremity essential tremors which have not worsened since her last visit and are not particularly bothersome. We discussed ongoing management of her multiple sclerosis. Given that she is tolerating Vumerity well I recommended continuing this medication. I will send blood work to [facility] to screen for tolerability of Vumerity. We will plan on repeating a brain MRI in early 2025 for ongoing screening of disease activity. I will see the patient back in follow up in his instructed her to reach out if any questions arise before next visit. Assessment & Plan (10/07/2024 1:24 PM CDT): The patient is presenting for follow up of multiple sclerosis. She reports that after initiating is a posterior she began to notice an increase in her blood pressure with peak levels reaching systolics of 190. She worked with her primary care physician who up titrated her lisinopril and metoprolol and she is currently on lisinopril 10 mg twice daily and metoprolol 25 mg daily. She reports no other side effects associated with the Zeposia. She specifically reports no new weakness, numbness, or vision changes. She does report that overall her vision seemed to be generally getting a little bit worse. Her neurological exam shows no underlying neurological deficits. She underwent a cervical and thoracic MRI in July, which showed a patchy signal change at C4-C5 concerning for possible involvement of demyelination. We discussed ongoing management of her multiple sclerosis. We discussed that is a posterior can sometimes lead to high blood pressure but it tends to be relatively modest with most patients who experienced blood pressure rises experiencing five mmHg. However, given that this is a known side effect it is possible that the suppose these contributing to the patient's recently elevated blood pressure that continues to fluctuate. I counseled her on other disease modifying therapies that would give her the same level of efficacy without the side effect. We discussed Vumerity as a potential option which has side effects of GI upset and flushing. We talked about a baby aspirin 30 minutes before taking Vumerity or eating a green Apple as two remedies to help with flushing was to occur. We also discussed Briumvi and Ocrevus as infusion medications that are slightly stronger immunosuppressive agents. We discussed the side effects including infusion related reactions and increased risk of infection. We discussed that comparatively Vumerity has lower incidence of infection in his therefore considered safer from this standpoint. Given the better safety with Vumerity the patient is interested in trialing it. I will have her fill out paperwork today to start the medication. I will obtain blood work today to follow up on her tolerability of the posterior. I counseled the patient to continue with Zeposia for the time being and then when Vumerity is approved she can transition from Zeposia to Vumerity. I will see the patient back in follow up and instructed her to reach out if any questions arise before our next visit. Assessment & Plan (07/07/2024 12:24 PM CDT): [...] Encounters Date Type Department Care Team Description 01/27/2025 12:00 PM CDT Telemedicine [facility] [address] [address] Yuan Anton MD Multiple sclerosis (Primary Dx) from Last 3 Months Medical History Medical History Date Comments Multiple sclerosis 07/07/2024 Hyperlipidemia 07/07/2024 Hypertension 07/07/2024 Tinnitus of left ear 07/07/2024 Social History Tobacco Use Types Packs/Day Years Used Date Smoking Tobacco: Unknown Tobacco Cessation:Counseling Given: Not Answered Comments No Sex and Gender Information Value Date Recorded Sex Assigned at Not on file 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 Gender Identity Not on file Sexual Orientation Not on file Last Filed Vital Signs Vital Sign Reading Time Taken Comments Blood Pressure 134/78 10/07/2024 12:25 PM CDT Pulse 69 10/07/2024 12:25 PM CDT Temperature 35.9 C (96.6 F) 07/07/2024 11:12 AM CDT Respiratory Rate - - Oxygen Saturation 98% 10/07/2024 12: 25 PM CDT Inhaled Oxygen Concentration - - Weight 82.4 kg (181 lb 11.2 oz) 025 12:25 PM CDT Height 162.6 cm (5' 4) 10/07/2024 12:2 5 PM CDT Body Mass Index 31.19 10/07/2024 12:25 PM CDT Plan of Treatment Health Maintenance Due Date Last Done Comments Breast Cancer Screening-Mammogram 1971 Colon Cancer Screening-Colonoscopy 1971 Depression Screening 1971 Hepatitis B Screening 1989 Regular Well Visit/Exam 18-64 1989 Pneumococcal vaccine <65 (1 of 2 - PCV) 1990 Zoster Vaccine (1 of 2) 2021 Covid-19 Vaccine (4 - 2024-2 6 season) 2024 03/04/2023, 03/01/2022, 03/01/2021 Influenza Vaccine (#1) 2024 , 01/24/2021, 01/14/2020, Additional history exists DTaP/Tdap/Td Vaccine (3 - Td or Tdap) 08/08/2031 08/07/2021, 01/29/2012 Hepatitis C Screening Completed 07/07/2024 Procedures Procedure Name Priority Date/Time Associated Diagnosis Comments COMPREHENSIVE METABOLIC PANEL Routine 02/02/2025 8:09 AM CDT Multiple sclerosis CBC WITH AUTO DIFFERENTIAL Routine 02/02/2025 8:09 AM CDT Multiple sclerosis HEPATITIS PANEL, ACUTE Routine 1:26 PM CDT Multiple sclerosis (HCC) from Last 3 Months or Most Recently Relevant to Health Maintenance Results * CBC with auto differential (02/02/2025 8:09 AM CDT) WBC 5.3 3.8 - 10.8 Thousand/u L [facility] RBC, POC 4.08 3.80 - 5.10 Million/uL [facility] Hgb 12.5 11.7 - 15.5 g/dL [facility] Hct 38.9 35.0 - 45.0 % [facility] MCV 95.3 80.0 - 100.0 fL [facility] MCH 30.6 27.0 - 33.0 pg [facility] MCHC 32.1 32.0 - 36.0 g/dL [facility] Comment: For adults, a slight decrease in the calculated MCHC value (in the range of 30 to 32 g/dL) is most likely not clinically significant; however, it should be interpreted with caution in correlation with other red cell parameters and the patient's clinical condition. Rdw 12.1 11.0 - 15.0 % [facility] Platelets 340 140 - 400 Thousand/u L [facility] MPV 10.1 7.5 - 12.5 fL [facility] Neutrophils, abs 3,604 1,500 - 7,800 cells/uL [facility] Lymphocytes, abs 1,161 850 - 3,900 cells/uL [facility] Monocyte abs 398 200 - 950 cells/uL [facility] Eosinophils, abs 101 15 - 500 cells/uL [facility] Basophils, abs 37 0 - 200 cells/uL [facility] Neutrophils 68 % [facility] Lymphocyte pct 21.9 % [facility] Monocytes 7.5 % [facility] Eosinophils 1.9 % [facility] Basophils 0.7 % [facility] Blood 02/02/2025 8:09 AM CDT 02/02/2025 8:09 AM CDT us Yuan Anton MD LAB BLOOD ORDERABLES Final Result [facility] [address] [place] [id number] * (ABNORMAL) Comprehensive metabolic panel (02/02/2025 8:09 AM CDT) [facility] Glucose 82 65 - 99 mg/dL [facility] Comment: Fasting reference interval BUN 15 7 - 25 mg/dL [facility] Creatinine 0.55 0.50 - 1.03 mg/dL [facility] eGFR 110 > OR = 60 mL/min/1.7 3m2 [facility] BUN/creat ratio SEE NOTE: 6 - 22 (calc) [facility] Comment: Not Reported: BUN and Creatinine are within reference range. Sodium 136 135 - 146 mmol/L [facility] Potassium, pl 4.6 3.5 - 5.3 mmol/L [facility] Chloride 100 98 - 110 mmol/L [facility] CO2 30 20 - 32 mmol/L [facility] Calcium 9.2 8.6 - 10.4 mg/dL [facility] Protein, sr 7.1 6.1 - 8.1 g/dL [facility] Albumin 4.2 3.6 - 5.1 g/dL [facility] GLOBULIN 2.9 1.9 - 3.7 g/dL (calc) [facility] Alb/glob ratio 1.4 1.0 - 2.5 (calc) [facility] Bilirubin, total 0.4 0.2 - 1.2 mg/dL [facility] Alk phos 62 37 - 153 U/L [facility] AST 20 10 - 35 U/L [facility] ALT (SGPT) 45(H) 6 - 29 U/L [facility] Blood 02/02/2025 8:09 AM CDT 02/02/2025 8:09 AM CDT us Yuan Anton MD LAB BLOOD ORDERABLES Final Result [facility] [address] [place] [id number] * Hepatitis panel, acute Blood (07/07/2024 1:26 PM CDT) Hep A IgM Nonreactive Nonreactive Comment: Interpretive Data: If Hep A IgM Ab is reported as Equivocal, a new sample should be drawn in two weeks for testing. Current interpretive data was last revised on 19. Hep B core IgM Nonreactive Nonreactive [facility] Comment: Interpretive Data If HepB Core IgM Ab is reported as Equivocal, a new sample should be drawn in two weeks for testing. Current interpretive data was last revised on 19. Hep C Ab Nonreactive Nonreactive [facility] Comment: Interpretive Data Nonreactive: Antibodies to [...] last revised on 2019. HepBsAg Nonreactive Nonreactive [facility] Blood 07/07/2024 1:26 PM CDT 07/07/2024 1:38 PM CDT Yuan Anton MD LAB MICROBIOLOGY - [facility] ORDERABLES Final Result [facility] [address] Department [place] [address] from Last 3 Months or Most Recently Relevant to Health [place] [address] [facility] ACCESS CHOICE [facility] ACCESS CHOICE Care Teams Barrel Plater Relationship Specialty Start Date End Date Nanette Stover DO PCP - General Family Medicine 06/18/24
== END 2025-03-17 08:06 | disposition home or self-care (01) ==
LOC: ANHFOHIMG 08:06
PROVIDERS: PCP Family Medicine; Visit Provider Family Medicine
DX: Z12.31 Encounter for screening mammogram for malignant neoplasm of breast (principal)
CPT/HCPCS: 77063; 77067